=== PATIENT | female | born 1960 | race Caucasian/White ===

== ENCOUNTER 2020-08-30 | Outpatient (REF) | payer OTHER, SELFPAY | END 2020-08-30 00:01 | disposition home or self-care (01) | LOC: HO.LNP | PROVIDERS: Visit Provider Nurse Practitioner Family | DX: L03.032 Cellulitis of left toe (principal) | CPT/HCPCS: 87071; 87077; 87147; 87186; 87205 ==

== ENCOUNTER → 2020-11-16 07:56 | Outpatient (BNVA) | payer OTHER, SELFPAY | PROVIDERS: PCP Internal Medicine; Visit Provider Advanced Practice Midwife | DX: Z76.89 Persons encountering health services in other specified circumstances (principal) ==

== ENCOUNTER 2020-11-30 10:19 | Outpatient (REF) | payer OTHER, SELFPAY ==
--- NOTE | 2020-11-30 10:24 | US_ITS ---
EXAMINATION: US PELVIS CLINICAL INFORMATION: Postmenopausal bleeding COMPARISON: None TECHNIQUE: Transabdominal and transvaginal imaging of pelvis is performed. FINDINGS: On transabdominal ultrasound, the uterus is retroverted and retroflexed. It measures 6.3 cm in length, 3.2 cm in AP and 4.3 cm in transverse dimension. No focal lesion seen. The endometrial thickness is 0.8 cm. There is a small hypoechoic lesion in the cervix likely a small polyp measuring 0.8 x 0.6 x 0.7 cm. The ovaries are not seen. There is no free fluid in the cul-de-sac. US/US transvaginal IMPRESSION: 1. Small cervical polyp. 2. Unremarkable uterus. 3. Ovaries are not seen.
--- NOTE | 2020-11-30 10:24 | US_ITS ---
EXAMINATION: US PELVIS CLINICAL INFORMATION: Postmenopausal bleeding COMPARISON: None TECHNIQUE: Transabdominal and transvaginal imaging of pelvis is performed. FINDINGS: On transabdominal ultrasound, the uterus is retroverted and retroflexed. It measures 6.3 cm in length, 3.2 cm in AP and 4.3 cm in transverse dimension. No focal lesion seen. The endometrial thickness is 0.8 cm. There is a small hypoechoic lesion in the cervix likely a small polyp measuring 0.8 x 0.6 x 0.7 cm. The ovaries are not seen. There is no free fluid in the cul-de-sac. US/US pelvic complete IMPRESSION: 1. Small cervical polyp. 2. Unremarkable uterus. 3. Ovaries are not seen.
== END 2020-11-30 10:20 | disposition home or self-care (01) ==
LOC: HO.US 10:19
PROVIDERS: Visit Provider Advanced Practice Midwife
DX: N95.0 Postmenopausal bleeding (principal)
CPT/HCPCS: 76830; 76856

== ENCOUNTER 2020-12-07 08:31 | Outpatient (REF) | payer OTHER, SELFPAY | END 2020-12-07 08:32 | disposition home or self-care (01) | LOC: HO.LAB 08:31 | PROVIDERS: PCP Internal Medicine; Referring Provider Advanced Practice Midwife; Visit Provider Obstetrics & Gynecology | DX: N93.9 Abnormal uterine and vaginal bleeding, unspecified (principal) | CPT/HCPCS: 58100; 88305; 99212 ==

== ENCOUNTER → 2020-12-21 15:59 | Outpatient (BNVA) | payer OTHER, SELFPAY | PROVIDERS: PCP Internal Medicine; Visit Provider Obstetrics & Gynecology ==

== ENCOUNTER 2021-01-04 09:37 | Outpatient (REF) | payer OTHER, SELFPAY | END 2021-01-04 09:38 | disposition home or self-care (01) | LOC: HO.LAB 09:37 | PROVIDERS: PCP Internal Medicine; Visit Provider Obstetrics & Gynecology | DX: N93.9 Abnormal uterine and vaginal bleeding, unspecified (principal) | CPT/HCPCS: 58100; 88305 ==

== ENCOUNTER → 2021-01-18 10:44 | Outpatient (BNVA) | payer OTHER, SELFPAY | PROVIDERS: PCP Internal Medicine; Visit Provider Obstetrics & Gynecology ==

== ENCOUNTER 2021-01-25 11:32 | Outpatient (REF) | payer OTHER, SELFPAY ==
[2021-01-25 13:59] LABS: MANUAL DIFF FLAG NO
[2021-01-25 14:06] LABS: Basophils Percent Auto 0.5 % (0-2); Eosinophils Absolute Auto 0.1 X10*3/uL (0.0-0.4); Eosinophils Percent Auto 0.8 % (0-4); Hematocrit 42.8 % (37-47); Imm Gran Abs Auto 0.02 X10*3/uL (0.00-0.03); Imm Gran Pct Auto 0.3 % (0.0-0.4); Lymphocytes Absolute Auto 2.2 X10*3/uL (1.2-4.9); Lymphocytes Percent Auto 33.2 % (20-40); Mean Corpuscular HGB Conc 32.7 g/dl (31.0-35.0); Mean Corpuscular Hemoglobin 30.6 pg (27.0-33.0); Mean Corpuscular Volume 93.4 fL (80-98); Mean Platelet Volume 9.9 fL (9.4-12.3); Monocytes Absolute Auto 0.5 X10*3/uL (0.1-1.2); Monocytes Percent Auto 7.4 % (2-11); Neutrophils Absolute Auto 3.8 X10*3/uL (2.0-8.3); Neutrophils Percent Auto 57.8 % (45-73); Platelet Count 312 X10*3/uL (160-400); Red Blood Count 4.58 X10*6/uL (4.20-5.50); Red Cell Distribution Width 12.2 % (11.0-16.0); White Blood Count 6.5 X10*3/uL (4.8-10.8)
[2021-01-25 14:42] LABS: Alanine Aminotransferase 38 U/L (0-31); Alkaline Phosphatase 110 U/L (39-117); Amylase 83 U/L (28-100); Anion Gap 16 (12-20); Aspartate Amino Transferase 30 U/L (5-31); Bilirubin Total 0.8 mg/dL (0.0-1.0); Blood Urea Nitrogen 20 mg/dL (9-16); Calcium 9.8 mg/dL (8.4-10.2); Carbon Dioxide 28 mmol/L (22-29); Chloride 101 mmol/L (96-108); Estimated Glomerular Filt Rate > 60; Glucose Random 88 mg/dL (60-115); Lipase 32 U/L (8-78); Potassium 4.3 mmol/L (3.3-5.1); Sodium 141 mmol/L (135-145); Total Protein 7.8 g/dL (6.5-8.0)
== END 2021-01-25 11:33 | disposition home or self-care (01) ==
LOC: HO.HMGCLDS 11:32
PROVIDERS: PCP Internal Medicine; Visit Provider Nurse Practitioner Family
DX: R10.9 Unspecified abdominal pain (principal)
CPT/HCPCS: 36415; 80053; 82150; 83690; 85025

== ENCOUNTER 2021-01-30 14:56 | Outpatient (REF) | payer OTHER, SELFPAY ==
[2021-01-30 16:46] LABS: Glucose Urine UA NEG (NEG); Leukocyte Esterase Urine NEG (NEG); Nitrite Urine NEG (NEG); PH 5.5 (5.0-8.0); Specific Gravity - Urine >= 1.030 (1.005-1.025); Urine Blood 1+ (NEG); Urine Ketones NEG (NEG); Urine Protein NEG (NEG-TRACE)
[2021-01-30 16:49] LABS: Appearance Urine CLEAR; Color Urine YELLOW
[2021-01-30 16:56] LABS: Bacteria Urine TRACE /LPF; Mucus Urine TRACE /LPF; Squamous Epithelial Cell Urine 1+ /LPF; WBC Urine 0-2 /HPF (0-4)
== END 2021-01-30 14:57 | disposition home or self-care (01) ==
LOC: HO.HMGCLDS 14:56
PROVIDERS: Nurse Practitioner Family; PCP Internal Medicine; Visit Provider Internal Medicine
DX: R10.9 Unspecified abdominal pain (principal); Z20.822 Contact with and (suspected) exposure to COVID-19
CPT/HCPCS: 36415; 81001; U0003; U0005

== ENCOUNTER 2021-01-31 11:30 | Outpatient (RCR) | payer OTHER, SELFPAY ==
--- NOTE | 2021-01-10 14:10 | MHC.OT.OEV ---
[address] [phone] F: [phone] Occupational Therapy Evaluation Diagnosis: R MF trigger finger Date of Onset: 12/20/20 Date of Surgery: Attending Provider: Rosio Chandler Prescribed Treatment: Evaluate and treat History of Current Condition: Reports onset 3 weeks of cramping in R hand and locking of R MF, stiffness in AM/PM. Reports triggering of R MF 2x/day and uses L hand to release Significant Medical History: n/a Precautions/Contraindications: PAIN Patient Goals: Decrease pain with use Hand Dominance: Right Observations: carries bag with L hand QuickDASH Score: 18 Prior Level of Function and Occupation Self Care, Employment, Leisure: Does not work. Does drive, enjoys sewing. Ind in ADLs and IADLs Living Situation, Family and/or Social Support: Lives alone Current Level of Function and Occupation Self Care, Employment, Leisure: Uses L hand to compensate for deficits. Reports difficulties with opening jars and containers, recently purchased electric jar social media job titles for maximizing independence. Sleep: No problems Driving: No problems Pain Assessment Pain Score: 3-8/10 Pain Scale Used: Numeric (0 - 10) Pain Location and Description: R hand/R MF Aggravating Factors: Opening jars/containers, gripping Alleviating Factors: Takes pain medication; has not used heat/ice Skin and Soft Tissue Assessment Skin and Soft Tissue: Nail Changes Swelling Comments: Mild edema noted in R hand, particularly in IPs Sensory Assessment Temperature: Light Touch: Proprioception: Vibration: Comments: Denies numbness/tingling Edema Assessment Upper Extremity: Right Impaired Lower Extremity: Comments: R LF: MCP circumference: R 18.5 cm, L 18 cm PIP circumference: R 6 cm, L 5.6 cm DIP circumference: R 5 cm, L 4.7 cm Dexterity Assessment Dexterity: WFL Comments: WFL per patient report; will continue to formally assess with f/u sessions AROM(PROM) Strength Wrist Flexion: B/L 88 Extension: R 65, L 70 Ulnar Deviation: Radial Deviation: Comments: Flexion: Extension: Ulnar Deviation: Radial Deviation: Comments: Digits Index MCP: PIP: DIP: Long MCP: R 80, L 80 PIP: R 90, L 95 DIP: R 80, 82 Ring MCP: PIP: DIP: Small MCP: PIP: DIP: Comments: Gross Grasp: R 20, L 35 Lateral Pinch: R 11, L 7 Two-Point Pinch: R 5, L 5 Three-Jaw Aroldo: R 6, L 7 Comments: Mild pain noted with R three jaw aroldo Patient Education Primary Language: Danish Rack Puller Required: No Current Knowledge: Understands information with skills for self-management Teaching Method: Demonstration Handouts Education Needs Identified on Evaluation: ADL's Disease Information Equipment Use Exercise Pain How did patient/family demonstrate learning? Patient demonstrates Patient verbalizes Barriers to Learning: None Readiness for Learning: Accepting Who was educated? Patient Comments: Plan of Care Assessment: Tammi is a 60 year old female who is retired and lives alone. She is Ind with ADLs and IADLs and drives. She reports cramping of the R hand and locking of the R MF 2x/day over the last 3 weeks, with most stiffness in the AM/PM. She reports using her L hand to release the triggering (stage 5 SST). She reports compensating with her nondominant L hand to complete ADLs and IADLs to avoid R hand pain/ triggering. She would benefit from skilled OT 2x/week for 4 weeks to maximize function and independence. STG Duration: Short Term Goals: See below LTG Duration: 4 weeks Die Attaching Machine Tender Goals: Ind HEP Ind orthosis wear and use Ind with JPT and activity modification R gross grasp >35 lbs Quick Dash score <10% Reports pain <3 with IADLs Achieve stage 2 of SST scale for TF Frequency and Duration: The patient will be seen 2x/week for 4 weeks Treatment Plan: Therapeutic Exercise Therapeutic Activity Home Exercise Program Splinting Patient Education Edema Control ADL Training Ultrasound Paraffin Fluidotherapy MHP Cold Packs Joint Mobilization Soft Tissue Mobilization Kinesiotaping Other (see comments) Electronically Signed By: Sandhya Hugo OT/s Reviewed/agree with student documentation: Yes Therapist: Indigo Mcarthur, OTR/L Please sign and return to therapist, Thank you for your referral.
--- NOTE | 2021-01-31 14:10 | MHC.OT.DC ---
[address] [phone] F: [phone] Occupational Therapy Discharge Note Provider: Rosio Chandler Diagnosis: R MF trigger finger Date of Evaluation: 01/10/21 Date of Discharge: 01/31/21 Treatments to Date: 7 Discharge Status: Achieved Goals Improved Function Independent with HEP Discharge Summary: Pt reports minimal pain with ADLs and IADLs, with the most pain being in the morning. She reports minimal use of orthosis. Pt strength has improved as well as functional use of the R hand. Pt was educated on use of heat, joint protection and activity modification as well as avoiding heavy gripping tasks and forced D3 finger flexion. Pt is between stage 2-3 of SST scale, with most irritation with forced D3 finger flexion. Pt will be transitioned to a home based program, D/C OT services. Electronically Signed By: Sandhya Hugo OT/s Reviewed/agree with student documentation: Yes Therapist: Indigo Mcarthur, OTR/L Please Sign and return to therapist, thank you for your referral.
== END 2021-01-31 14:11 | disposition other institution (70) ==
LOC: HO.OT 11:30
PROVIDERS: Visit Provider Internal Medicine
DX: M65.331 Trigger finger, right middle finger (principal)
CPT/HCPCS: 97035; 97110; 97140; 97165; 97760

== ENCOUNTER → 2021-02-14 08:07 | Outpatient (BNVA) | payer OTHER, SELFPAY | PROVIDERS: PCP Internal Medicine; Visit Provider Obstetrics & Gynecology | DX: R10.84 Generalized abdominal pain (principal) | CPT/HCPCS: 99212 ==

== ENCOUNTER 2021-03-16 07:53 | Outpatient (REF) | payer OTHER, SELFPAY ==
--- NOTE | ~2021-03-16 | MM_ITS ---
EXAMINATION: MM SCREENING DIGITAL BREAST TOMOSYNTHESIS, BILATERAL CLINICAL INFORMATION: Screening. Asymptomatic. The lifetime risk of breast cancer based on the Tyrer-Cuzick Model is 8%. COMPARISON: Mammography: 01/25/2020, 01/19/2019, 01/13/2018 TECHNIQUE: Digital breast tomosynthesis is performed in both the craniocaudal and mediolateral oblique views along with computer-aided detection (CAD). Synthesized 2D images are generated from the tomosynthesis. Additional exaggerated right CC view is provided. FINDINGS: The breasts are heterogeneously dense, which may obscure small masses (ACR BI-RADS breast composition Category c). There are no significant masses, abnormal calcifications, or other abnormalities. Parenchymal pattern is similar to prior exams MM/MM tomosynthesis screening BI IMPRESSION: No significant changes from prior studies. ASSESSMENT: BI-RADS 1: Negative RECOMMENDATION: Routine annual mammography screening. This patient's information was entered into a reminder system with a target due date for their next mammogram.
== END 2021-03-16 07:54 | disposition home or self-care (01) ==
LOC: HO.MAMMO 07:53
PROVIDERS: Visit Provider Internal Medicine
DX: Z12.31 Encounter for screening mammogram for malignant neoplasm of breast (principal)
CPT/HCPCS: 77063; 77067

== ENCOUNTER 2021-04-07 10:25 | Outpatient (REF) | payer OTHER, SELFPAY ==
--- NOTE | ~2021-04-07 | MM_ITS ---
EXAMINATION: BONE DENSITOMETRY CLINICAL INDICATION: Asymptomatic menopausal state. COMPARISON: None (current study represents initial baseline exam). TECHNIQUE: Using a Flash Auto Detailing DXA System (software version: 13.1) manufactured by [employer], dual-energy x-ray absorptiometry was performed of the lumbar spine and left hip. The images are of good technical quality. Summary results are attached. FINDINGS: AP SPINE L1-L4: There is levocurvature and degenerative changes lumbar spine which may cause overestimation of the lumbar bone mineral density. BMD 1.022 g/cm2, Z-score 0.1, T-score -1.3, osteopenia. LEFT FEMUR, NECK: BMD 0.720 g/cm2, Z-score -0.9, T-score -2.3, osteopenia. LEFT FEMUR, TOTAL: BMD 0.765 g/cm2, Z-score -0.8, T-score -1.9, osteopenia. IDENTIFIED RISK FACTORS: Menopause. HISTORY OF FRACTURE: None listed. MEDICATIONS: None listed. MM/XR DEXA axial skeleton IMPRESSION: 1. DIAGNOSIS: Osteopenia based on the lowest T-score value of -2.3 in the femoral neck applying World Health Organization criteria. 2. 10-YEAR FRACTURE RISK PREDICTION, FRAX: Major osteoporotic fracture (clinical spine, forearm, hip or shoulder) 9.6%. Hip fracture 1.6%. 3. Treatment Recommendations: NOF guidelines recommend consideration for treatment in postmenopausal women and men age 50 and older presenting with the following: -A hip or vertebral (clinical or morphometric) fracture. -T-score less than or equal to -2.5 at the femoral neck or spine after appropriate evaluation to exclude secondary causes. -Low bone mass at the hip or spine and a 10-year fracture probability by FRAX of greater than or equal to 3% for hip fracture or greater than or equal to 20% for major osteoporotic fracture based on the [place] adapted WHO algorithm. 4. Other Recommendations: All treatment decisions require clinical judgment and consideration of individual patient factors, including patient preferences, comorbidities, previous drug use, risk factors not captured in the FRAX model (e.g. frailty, falls, vitamin D deficiency, increased bone turnover, interval significant decline in bone density) and possible under or overestimation of fracture risk by FRAX. Additional medical evaluation for secondary cause of low bone mineral density may be appropriate. FUTURE SCAN RECOMMENDATION: People with diagnosed cases of osteoporosis or at high risk for fracture should have regular bone mineral density tests. For patients eligible for Medicare, routine testing is allowed once every 2 years. The testing frequency can be increased to one year for patients who have rapidly progressing disease, those who are receiving or discontinuing medical therapy to restore bone mass, or have additional risk factors.
== END 2021-04-07 10:26 | disposition home or self-care (01) ==
LOC: HO.MAMMO 10:25
PROVIDERS: PCP Internal Medicine; Visit Provider Internal Medicine
DX: Z13.820 Encounter for screening for osteoporosis (principal); M85.80 Other specified disorders of bone density and structure, unspecified site; Z78.0 Asymptomatic menopausal state
CPT/HCPCS: 77080

== ENCOUNTER → 2021-04-18 08:22 | Outpatient (BNVA) | payer OTHER, SELFPAY | PROVIDERS: PCP Internal Medicine; Visit Provider Internal Medicine Gastroenterology | DX: R13.10 Dysphagia, unspecified (principal); R19.4 Change in bowel habit | CPT/HCPCS: 99212 ==

== ENCOUNTER 2021-05-18 10:52 | Day surgery (SDC) | payer OTHER, SELFPAY ==
[2021-05-12 14:41] VITALS: BMI 20.1
[2021-05-18 11:08] VITALS: BP 123/64; PULSE 77; RESP 16; TEMP 37.6; O2SAT 99
--- NOTE | 2021-05-18 11:23 | HO.ANESPROP2 ---
[facility] Active Problems Active Problems: All Active Problems (Updated 05/12/21 @ 14:38 by Dinora Fung) Paronychia (Acute) Paronychia due to ingrown nail (Acute) Paronychia of great toe of right foot (Acute) Paronychia of great toe of left foot (Acute) Ingrown toenail of left foot (Acute) Well woman exam with routine gynecological exam (Acute) Postmenopausal vaginal bleeding (Acute) Encounter for general adult medical examination with abnormal findings (Acute) Trigger middle finger of right hand (Acute) Vitamin D deficiency (Acute) Abdominal pain (Acute) Menopause (Acute) Hard stool (Acute) Chronic GERD (Acute) Acid reflux (Acute) Altered bowel habits (Acute) Dysphagia (Acute) Toe infection (Acute) Past Medical History Medical History Arthritis of right wrist GERD (gastroesophageal reflux disease) History of iron deficiency anemia Hx of migraines Scoliosis Toe infection Family History Family History Father Diabetes mellitus Stomach cancer Mother HTN (hypertension) Afib Heart failure Maternal Grandfather CVD (cardiovascular disease) Maternal Grandmother Leukemia Paternal Grandfather Cancer Paternal Grandmother No problems noted. Brother No problems noted. Brother No problems noted. Brother No problems noted. Brother No problems noted. Brother No problems noted. Sister No problems noted. Sister No problems noted. Sister No problems noted. Surgical History Surgical History History of tonsillectomy Hx of colonoscopy Social History Social History Household Members: None Alcohol intake: never Patient Tobacco Use Status: Never used Tobacco Use of substances other than those prescribed or required for medical reasons: No Advance Directives: No Advance Directives Information Provided: Yes Current occupational status: unemployed Sexual orientation: Straight/Heterosexual Gender identity: female Meds Allergies Allergy/AdvReac Type Severity Reaction Status Date / Time No Known Allergies Allergy Verified 05/18/21 11:03 [No Known Allergies*] Home Medications Medication Instructions Recorded Confirmed Last Taken Type sulfacetamide sodium 10 % eye drops 1 drp OPHTHALMIC (EYE) QID 08/30/20 05/12/21 Unknown History acetaminophen 500 mg PO Q6H PRN 05/18/21 05/18/21 Unknown History Exam Exam Date and Time: May 18, 2021 1123 Height,Weight and Vital Signs: Height 5 ft 6 in Weight 125 lb Last Vital Signs Temp 99.6 F 05/18/21 11:08 Pulse 77 05/18/21 11:08 Resp 16 05/18/21 11:08 BP 123/64 05/18/21 11:08 Pulse Ox 99 05/18/21 11:08 Airway Mallampati Class: II TM Dist: >3cm Loose/Missing/Broken Teeth: No Heart: RRR Lungs: NL Assessment and Plan Assessment Anesthesia Assessment: Anesthesia Plan Discussed and Chart Reviewed Final Anesthetic Review NPO: Yes ASA Class: II Final Preanesthetic Review: No Changes in Pt Med Stat, Meds/Allgs Chart Reviewed, Consent Obtained/Reviewed and Anes Risks/Benef Reviewed Patient Risk: Low Procedure Risk: Low Anesthetic Plan Anesthetic Plan: MAC: Disposition: Standard PACU
[2021-05-18] MEDS: Lactated Ringers 1,000 ML 50 ML IVCONT (11:35)
--- NOTE | 2021-05-18 11:37 | MHC.SHP ---
Pre-Procedural Eval Section A Date of Service: 05/18/21 Section B Chief Complaint: altered bowel habits, Dysphagia Relevant Family History (Specify if Yes): No Relevant Social History: None Present Medications: see Short Stay Collaborative assessment Medical History: Significant History (Arthritis of right wrist GERD (gastroesophageal reflux disease) History of iron deficiency anemia Hx of migraines Scoliosis Toe infection) History of Previous Operations: Relevant previous surgery/procedure and date(s) (History of tonsillectomy Hx of colonoscopy) Allergies: Allergies Allergy/AdvReac Type Severity Reaction Status Date / Time No Known Allergies Allergy Verified 05/18/21 11:03 [No Known Allergies*] Review of Systems Sugical H&P ROS: Negative: Constitution, Cardiovascular, Respiratory, Neurological, Psychiatric, Hem-Onc, Allergic/Immunologic, Gastrointestinal, Genitourinary, Musculoskeletal, Integumentary, Endocrine and Eyes/Ears/Nose/Throat Exam Surgical H&P Exam: Normal: HEENT, Normal: Heart, Normal: Lungs, Normal: Extremities, Normal: Abdomen, Normal: Skin and Normal: Neurological Plan Diagnosis/Plan: Unchanged I have reviewed the history and physical and performed a pertinent physical examination on my patient. No changes have occurred unless specified.
--- NOTE | 2021-05-18 11:53 | P.BOP_ITS ---
Brief Operative Note Date of Service: 05/18/21 Pre-op diagnosis: altered bowle habit, dysphagia Post-op diagnosis: same Procedure: see op note Surgeon: Marilyn Mathias MD Anesthesia: MAC Was an Medical Laboratory Technician used for this Procedure?: No Estimated blood loss (mL): 0 Condition: stable Disposition: PACU
--- NOTE | 2021-05-18 11:53 | P.OP_ITS ---
Operative Note Operative Note Date of Service: 05/18/21 Narrative: Operative Information Procedure Description: EGD, Colonoscopy FLEXIBLE TRANSORAL UPPER GASTROINTESTINAL ENDOSCOPY AND COLONOSCOPY PROCEDURE NOTE UPPER ENDOSCOPY Consent: Indications for the procedure and potential complications of bleeding, perforation, reaction to medications and missed diagnosis were discussed with the patient and informed consent was obtained. Instrument: Olympus GIF H 190 J mid size upper endoscope Monitoring: Vital signs and clinical assessment, continuous EKG monitoring, Pulse oximetry, Carbon Dioxide monitoring and blood pressure monitoring were done throughout the procedure. Procedure: The patient was placed in the left lateral decubitis position and pre-procedure medications were administered and a bite block was placed. The endoscope was inserted into the mouth and advanced under direct vision to the third part of duodenum. A careful inspection was made as the upper endoscope was withdrawn including a retroflexed examination of the proximal stomach; Findings and interventions are described below. Findings: Larynx:normal Esophagus: GE junction at 40 cm, diaphragm hiatus at 40 cm, normal mucosa, bx taken from GEJ and random esophagus, balloon dilation of LES to 20 mm and UES to 19 mm, no tears seen. Stomach: Mild erythema. Biopsies were obtained. Grade 2 flap valve on retroflexed examination of the cardia. Duodenum: Normal bulb and descending duodenum, bx taken Intervention: Biopsies as noted above, balloon dilation COLONOSCOPY Instrument: Olympus variable stiffness pediatric scope 190L Colonoscopy Monitoring: Vital signs and clinical assessment, continuous EKG monitoring, Pulse oximetry, Carbon Dioxide monitoring and blood pressure monitoring were done throughout the procedure. Colon withdrawal time was 11 minutes. Procedure: The patient was placed in the left lateral decubitis position and pre-procedure medications were administered. After a digital rectal examination of the ano-rectum, the video colonoscope was inserted into the rectum and advanced through the colon to the cecum/TI. The colonoscope was slowly withdrawn in a retrograde panoramic fashion and the colon mucosa was carefully examined including a retroflexed view of the rectum. Findings and interventions are described below. Procedure Difficulty:moderate due to looping, pressure applied to RUQ Findings: Terminal Ileum-normal, bx taken random colon bx taken Cecum:normal Ascending Colon: normal Transverse Colon -normal Descending Colon:normal Sigmoid Colon: moderate severe diverticulosis with mucosal hypertrophy noted Rectum: Retroflexion with moderate sized inflammed internal hemorrhoids, grade II Anorectum - normal Colon preparation: [place] Bowel Preparation Scale Right colon; 2 Transverse colon: 2 Left colon; 2 (0 = Unprepared colon segment with mucosa not seen due to solid stool that cannot be cleared. 1 = Portion of mucosa of the colon segment seen, but other areas of the colon segment not well seen due to staining, residual stool and/or opaque liquid. 2 = Minor amount of residual staining, small fragments of stool and/or opaque liquid, but mucosa of colon segment seen well. 3 = Entire mucosa of colon segment seen well with no residual staining, small fragments of stool or opaque liquid) Impression and Post Procedure Diagnosis: Endoscopy Findings: gastritis Colonoscopy Findings: internal hemorrhoids diverticular disease Plan: Await Pathology results Repeat Colonoscopy in 10 years or earlier if clinically indicated High fiber diet leaflet avoid straining at stool, epsom salts and sitz bath, anusol supps or cream Above findings were reviewed with the patient and relevant handouts were provided if indicated.
[2021-05-18 12:41] VITALS: BP 102/63; PULSE 67; RESP 16; TEMP 36.4; O2SAT 99
[2021-05-18 12:56] VITALS: BP 114/71; PULSE 81; RESP 17; O2SAT 100
== END 2021-05-18 13:36 | disposition home or self-care (01) ==
PROVIDERS: PCP Internal Medicine; Visit Provider Internal Medicine Gastroenterology
PROC: (CPT 45380; principal; 2021-05-18 12:30)
DX: R19.4 Change in bowel habit (principal); R15.2 Fecal urgency; R19.8 Other specified symptoms and signs involving the digestive system and abdomen; K57.30 Diverticulosis of large intestine without perforation or abscess without bleeding; K64.1 Second degree hemorrhoids; R13.10 Dysphagia, unspecified; K21.9 Gastro-esophageal reflux disease without esophagitis; K29.50 Unspecified chronic gastritis without bleeding; K44.9 Diaphragmatic hernia without obstruction or gangrene
CPT/HCPCS: 45380; 43249; 43239; 88305; 88342; C1726

== ENCOUNTER → 2021-06-13 11:28 | Outpatient (BNVA) | payer OTHER, SELFPAY | PROVIDERS: PCP Internal Medicine; Visit Provider Internal Medicine Gastroenterology ==

== ENCOUNTER 2022-02-07 08:28 | Outpatient (REF) | payer OTHER, SELFPAY ==
[2022-02-10 09:37] LABS: HPV mRNA E6/E7 rflx Not Detected (Not Detected)
== END 2022-02-07 08:29 | disposition home or self-care (01) ==
LOC: HO.LAB 08:28
PROVIDERS: PCP Internal Medicine; Visit Provider Advanced Practice Midwife
DX: Z01.411 Encounter for gynecological examination (general) (routine) with abnormal findings (principal); Z11.51 Encounter for screening for human papillomavirus (HPV); R10.2 Pelvic and perineal pain
CPT/HCPCS: 87624; 88142

== ENCOUNTER 2022-03-02 09:38 | Outpatient (REF) | payer OTHER, SELFPAY ==
--- NOTE | ~2022-03-02 | US_ITS ---
EXAMINATION: US PELVIS CLINICAL INFORMATION: Pelvic pain. COMPARISON: 11/30/2020 and 01/14/2018 TECHNIQUE: Ultrasound of the pelvis is performed using both transabdominal and transvaginal transducers along with Doppler. Transvaginal imaging is performed due to inadequate visualization transabdominally. FINDINGS: The study is limited due to peristalsing bowel and uterine positioning. Uterus: The uterus is retroverted and retroflexed and measures 6.2 x 3.3 x 3.5 cm. The double wall endometrial thickness is 0.6 mm. Within the cervix, there is an approximately 1.0 x 0.5 x 0.9 cm minimally hypoechoic structure with the appearance of a cervical polyp. The uterus is smooth in contour and has normal myometrial echogenicity. No visible fibroid. Adnexa: The left ovary is visualized. The right ovary is not visualized. There is normal Doppler flow present within the left ovary. There is no pelvic ascites or fluid collection. Right ovary is not identified. Left ovary measures 2.0 x 1.6 x 1.6 cm. Volume of 2.7 mL with no abnormal ovarian findings appreciated. US/US pelvic and transvaginal IMPRESSION: Cervical polyp, as described, with similar appearance as prior examination.
== END 2022-03-02 09:39 | disposition home or self-care (01) ==
LOC: HO.HMGCX 09:38
PROVIDERS: PCP Internal Medicine; Visit Provider Advanced Practice Midwife
DX: R10.2 Pelvic and perineal pain (principal)
CPT/HCPCS: 76830; 76856

== ENCOUNTER → 2022-03-08 16:07 | Outpatient (BNVA) | payer OTHER, SELFPAY | PROVIDERS: PCP Internal Medicine; Visit Provider Advanced Practice Midwife | DX: Z13.89 Encounter for screening for other disorder (principal) ==

== ENCOUNTER → 2022-04-03 07:39 | Outpatient (BNVA) | payer OTHER, SELFPAY | PROVIDERS: PCP Internal Medicine; Visit Provider Obstetrics & Gynecology | DX: N95.0 Postmenopausal bleeding (principal) | CPT/HCPCS: 99212 ==

== ENCOUNTER 2022-04-13 07:20 | Day surgery (SDC) | payer OTHER, SELFPAY ==
--- NOTE | 2022-04-12 08:24 | HO.ANESPROP2 ---
Documented by User: Marcy Leach NP 04/12/22 08:25 HPI - Anesthesia Eval Consult details Narrative: 62yo F for D&C Hysteroscopy,Possible polypectomy/myomectomy PMFSH Active Problems Active Problems: All Active Problems (Updated 04/06/22 @ 14:06 by Dinora Fung RN) Paronychia (Acute) Paronychia due to ingrown nail (Acute) Paronychia of great toe of right foot (Acute) Paronychia of great toe of left foot (Acute) Ingrown toenail of left foot (Acute) Well woman exam with routine gynecological exam (Acute) Postmenopausal vaginal bleeding (Acute) Encounter for general adult medical examination with abnormal findings (Acute) Trigger middle finger of right hand (Acute) Vitamin D deficiency (Acute) Abdominal pain (Acute) Menopause (Acute) Hard stool (Acute) Chronic GERD (Acute) Acid reflux (Acute) Altered bowel habits (Acute) Dysphagia (Acute) Nausea (Acute) Dermatitis (Acute) Dysphagia (Acute) Pain in right wrist (Acute) Gastric inflammation (Acute) Underweight due to inadequate caloric intake (Acute) Abdominal cramping (Acute) Myalgia (Acute) Headache (Acute) Nasal congestion (Acute) COVID-19 virus infection (Acute) Encounter to discuss test results (Acute) Postmenopausal bleeding (Acute) Endocervical polyp (Acute) Toe infection (Acute) Past Medical History Medical History Arthritis of right wrist Endocervical polyp GERD (gastroesophageal reflux disease) History of COVID-19 History of iron deficiency anemia Hx of migraines Scoliosis Toe infection Family History Family History Father Diabetes mellitus Stomach cancer Mother HTN (hypertension) Afib Heart failure Maternal Grandfather CVD (cardiovascular disease) Maternal Grandmother Leukemia Paternal Grandfather Cancer Paternal Grandmother No problems noted. Brother No problems noted. Brother No problems noted. Brother No problems noted. Brother No problems noted. Brother No problems noted. Sister No problems noted. Sister No problems noted. Sister No problems noted. Surgical History Surgical History History of tonsillectomy Hx of colonoscopy Hx of esophagogastroduodenoscopy Social History Social History Household Members: None Housing: Condominium Alcohol intake: never Patient Tobacco Use Status: Never used Tobacco Use of substances other than those prescribed or required for medical reasons: No Are you DNR?: No Advance Directives: No Advance Directives Information Provided: Yes Current occupational status: unemployed Sexual orientation: Straight/Heterosexual Gender identity: Female Meds Allergies Allergy/AdvReac Type Severity Reaction Status Date / Time No Known Allergies Allergy Verified 04/06/22 14:00 [No Known Allergies*] Home Medications Medication Instructions Recorded Confirmed Last Taken Type acetaminophen 500 mg tablet 500 mg PO Q6H PRN 05/18/21 04/06/22 Unknown History Exam Exam Date and Time: April 12, 2022823 Assessment and Plan Assessment Anesthesia Assessment: Chart Reviewed Documented by User: Praveena Posey MD 04/13/22 09:04 PMFSH Active Problems Active Problems: All Active Problems (Updated 04/06/22 @ 14:06 by Dinora Fung RN) Paronychia due to ingrown nail (Acute) Paronychia of great toe of right foot (Acute) Paronychia of great toe of left foot (Acute) Well woman exam with routine gynecological exam (Acute) Postmenopausal vaginal bleeding (Acute) Encounter for general adult medical examination with abnormal findings (Acute) Trigger middle finger of right hand (Acute) Vitamin D deficiency (Acute) Abdominal pain (Acute) Menopause (Acute) Hard stool (Acute) Chronic GERD (Acute) Altered bowel habits (Acute) Dysphagia (Acute) Nausea (Acute) Dermatitis (Acute) Pain in right wrist (Acute) Gastric inflammation (Acute) Underweight due to inadequate caloric intake (Acute) Abdominal cramping (Acute) Myalgia (Acute) Headache (Acute) Nasal congestion (Acute) COVID-19 virus infection (Acute) Endocervical polyp (Acute) Toe infection (Acute) Past Medical History Medical History Arthritis of right wrist Endocervical polyp GERD (gastroesophageal reflux disease) History of COVID-19 History of iron deficiency anemia Hx of migraines Scoliosis Toe infection Family History Family History Father Diabetes mellitus Stomach cancer Mother HTN (hypertension) Afib Heart failure Maternal Grandfather CVD (cardiovascular disease) Maternal Grandmother Leukemia Paternal Grandfather Cancer Paternal Grandmother No problems noted. Brother No problems noted. Brother No problems noted. Brother No problems noted. Brother No problems noted. Brother No problems noted. Sister No problems noted. Sister No problems noted. Sister No problems noted. Family history of problems with anesthesia: No Surgical History Surgical History History of tonsillectomy Hx of colonoscopy Hx of esophagogastroduodenoscopy History of Problems with Anesthesia: No Social History Social History Household Members: None Housing: Condominium Alcohol intake: never Patient Tobacco Use Status: Never used Tobacco Use of substances other than those prescribed or required for medical reasons: No Are you DNR?: No Advance Directives: No Advance Directives Information Provided: Yes Current occupational status: unemployed Sexual orientation: Straight/Heterosexual Gender identity: Female Meds Allergies Allergy/AdvReac Type Severity Reaction Status Date / Time No Known Allergies Allergy Verified 04/06/22 14:00 [No Known Allergies*] Home Medications Medication Instructions Recorded Confirmed Last Taken Type acetaminophen 500 mg tablet 500 mg PO Q6H PRN 05/18/21 04/06/22 Unknown History Exam Height,Weight and Vital Signs: Height 5 ft 6 in Weight 54.431 kg Vital Signs Temp Pulse Resp BP Pulse Ox 04/13/22 07:54 97.1 F 70 18 132/75 99 Airway Mallampati Class: II TM Dist: >3cm (Receding chin) Neck ROM: Full Loose/Missing/Broken Teeth: No Heart: RRR Lungs: CTAB Assessment and Plan Assessment Anesthesia Assessment: Anesthesia Plan Discussed Final Anesthetic Review Family History of Problems with Anesthesia: No History of Problems with Anesthesia: No NPO: Yes ASA Class: II Final Preanesthetic Review: No Changes in Pt Med Stat, Meds/Allgs Chart Reviewed, Consent Obtained/Reviewed and Anes Risks/Benef Reviewed Patient Risk: Low Procedure Risk: Low Assessment/Block/Sedation in SS: Assess/Block/Sedation-SS Anesthetic Plan Anesthetic Plan: GA Disposition: Standard PACU
[2022-04-13] VITALS (8 sets, daily range): BP systolic 86–132; BP diastolic 56–75; PULSE 55–74; RESP 10–18; TEMP 36.2–36.6; O2SAT 95–100; BMI 19.3
--- NOTE | 2022-04-13 | ECG_ITS ---
Test Reason : p abnomality Blood Pressure : / mmHG Vent. Rate : 072 BPM Atrial Rate : 072 BPM P-R Int : 122 ms QRS Dur : 072 ms QT Int : 396 ms P-R-T Axes : 003 -50 038 degrees QTc Int : 433 ms Normal sinus rhythm Left axis deviation Low voltage QRS Cannot rule out Anterior infarct , age undetermined Abnormal ECG When compared with ECG of 09-JAN-2019 18:07, No significant change was found Referred By: rPaveena Posey Electronically Signed By:
[2022-04-13] MEDS: Lactated Ringers 1,000 ML 50 ML IVCONT (08:06)
--- NOTE | 2022-04-13 08:51 | MHC.SHP ---
Pre-Procedural Eval Section A Date of Service: 04/13/22 The patient is an INPATIENT: No Changes since office visit: No Cold of Flu in the past 2 weeks, No New Medical Problems, No Changes in Medication and No Patient answered all questions The History & Physical has been completed within 30 days and I have reviewed it.: Yes Section B Chief Complaint: bleeding Allergies: Allergies Allergy/AdvReac Type Severity Reaction Status Date / Time No Known Allergies Allergy Verified 04/06/22 14:00 [No Known Allergies*] Plan Diagnosis/Plan: Unchanged I have reviewed the history and physical and performed a pertinent physical examination on my patient. No changes have occurred unless specified.
--- NOTE | 2022-04-13 09:44 | PM.OP ---
Brief Operative Note Date of Service: 04/13/22 Pre-op diagnosis: Postmenopausal bleeding, endocervical polyp Post-op diagnosis: same Procedure: Hysteroscopy D&C, Polypectomy Surgeon: Baljit Sawyer MD Anesthesia: MAC Was an Substance Abuse Technician used for this Procedure?: No Estimated blood loss (mL): 0 Pathology: other (Endometrial Scrapping. Polyp) Condition: stable Disposition: PACU
--- NOTE | 2022-04-13 09:46 | W.PM.OPN ---
Operative Note Operative Note Date of Service: 04/13/22 Narrative: Preop Diagnosis: Postmenopausal bleeding, Endo cervical polyp by US Operation: Diagnostic Hysteroscopy, Dilataion & Curettage and polypectomy Post Op Diagnosis: Endocervical l Polyp QBL: Minimal Anesthesia: MAC Surgeon: Baljit Sawyer MD Heel Cover Softener: None Complication: None Pathology: Endometrial Scrapings, Endocervical polyp Procedure: The patient was put in the dorsal lithotomy position, scrubbed, and draped in the usual manner. A sterile speculum was inserted in the patient's vagina. The anterior lip of the cervix was grasped with a single tooth tenaculum. The cervix was dilated up to 5 mm, then the scope was inserted in the patient's uterus. Inspection revealed endo cervical polyp. The Myosure Reach device was used; it was introduced through the operative channel and polypectomy done with no complications. Next, Sharp curettings was carried on with minimal amount of tissues retrieved. At the end of the procedure, all instruments were taken out of the patient uterine and vaginal cavity. The single tooth tenaculum was removed and homeostasis was assured using pressure,. The patient tolerated the procedure well and was transferred to the PACU in a stable condition.
[2022-04-13] MEDS: Acetaminophen 325 MG TABLET 650 MG PO (10:31)
[2022-04-13] MEDS: oxyCODONE HCl Immed Release 5 MG TABLET PO (10:32)
== END 2022-04-13 10:53 | disposition home or self-care (01) ==
PROVIDERS: PCP Internal Medicine; Visit Provider Obstetrics & Gynecology
PROC: 0UDB8ZZ Extraction of Endometrium, Via Natural or Artificial Opening Endoscopic (ICD-10-PCS; CPT 58558; principal; 2022-04-13 09:30)
DX: N95.0 Postmenopausal bleeding (principal); N84.1 Polyp of cervix uteri; N85.4 Malposition of uterus; D50.9 Iron deficiency anemia, unspecified; G43.909 Migraine, unspecified, not intractable, without status migrainosus; M41.9 Scoliosis, unspecified
CPT/HCPCS: 58558; 88305; 93005; J1100; J2250; J2405; J3010

== ENCOUNTER → 2022-04-26 11:56 | Outpatient (BNVA) | payer OTHER, SELFPAY | PROVIDERS: Visit Provider Obstetrics & Gynecology | DX: N95.0 Postmenopausal bleeding (principal); N84.0 Polyp of corpus uteri; Z98.890 Other specified postprocedural states | CPT/HCPCS: 99212 ==

== ENCOUNTER 2022-12-17 13:19 | Outpatient (REF) | payer OTHER, SELFPAY ==
--- NOTE | ~2022-12-17 | MM_ITS ---
EXAMINATION: MM SCREENING DIGITAL BREAST TOMOSYNTHESIS, BILATERAL CLINICAL INFORMATION: Screening. Asymptomatic. The lifetime risk of breast cancer based on the Tyrer-Cuzick Model is 8%. COMPARISON: Mammography: 03/16/2021, 01/25/2020, 01/19/2019 TECHNIQUE: Digital breast tomosynthesis is performed in both the craniocaudal and mediolateral oblique views along with computer-aided detection (CAD). Synthesized 2D images are generated from the tomosynthesis. Additional right CC view is provided. FINDINGS: The breasts are heterogeneously dense, which may obscure small masses (ACR BI-RADS breast composition Category c). Breast tissue composition borders on extremely dense. No architectural abnormality or developing density or significant change from prior studies. There are no significant masses, abnormal calcifications, or other abnormalities. MM/MM tomosynthesis screening BI IMPRESSION: No mammographic evidence of malignancy. ASSESSMENT: BI-RADS 1: Negative RECOMMENDATION: Routine annual mammography screening. This patient's information was entered into a reminder system with a target due date for their next mammogram.
== END 2022-12-17 13:20 | disposition home or self-care (01) ==
LOC: HO.MAMMO 13:19
PROVIDERS: Visit Provider Internal Medicine
DX: Z12.31 Encounter for screening mammogram for malignant neoplasm of breast (principal)
CPT/HCPCS: 77063; 77067

== ENCOUNTER 2022-12-26 07:17 | Outpatient (REF) | payer OTHER, SELFPAY ==
[2022-12-26 11:20] LABS: MANUAL DIFF FLAG NO
[2022-12-26 11:32] LABS: Basophils Percent Auto 0.6 % (0-2); Eosinophils Percent Auto 0.8 % (0-4); Hematocrit 40.1 % (37.0-47.0); Hemoglobin 13.2 g/dl (12.0-16.0); Imm Gran Abs Auto 0.01 X10*3/uL (0.00-0.03); Imm Gran Pct Auto 0.2 % (0.0-0.4); Lymphocytes Absolute Auto 1.8 X10*3/uL (1.2-4.9); Lymphocytes Percent Auto 37.7 % (20-40); Mean Corpuscular HGB Conc 32.9 g/dl (31.0-35.0); Mean Corpuscular Hemoglobin 30.6 pg (27.0-33.0); Mean Corpuscular Volume 92.8 fL (80.0-98.0); Mean Platelet Volume 10.6 fL (9.4-12.3); Monocytes Absolute Auto 0.4 X10*3/uL (0.1-1.2); Neutrophils Absolute Auto 2.6 x10*3/uL (2.0-8.3); Neutrophils Percent Auto 52.7 % (45-73); Platelet Count 283 X10*3/uL (160-400); Red Blood Count 4.32 X10*6/uL (4.20-5.50); Red Cell Distribution Width 11.9 % (11.0-16.0); White Blood Count 4.9 X10*3/uL (4.8-10.8)
[2022-12-26 12:21] LABS: Alanine Aminotransferase 15 U/L (0-31); Albumin Level 4.6 g/dL (3.5-5.0); Alkaline Phosphatase 96 U/L (39-117); Anion Gap 16 (12-20); Aspartate Amino Transferase 18 U/L (5-31); Bilirubin Total 0.8 mg/dL (0.0-1.0); Blood Urea Nitrogen 15 mg/dL (9-16); Calcium 9.6 mg/dL (8.4-10.2); Carbon Dioxide 25 mmol/L (22-29); Chloride 104 mmol/L (96-108); Cholesterol 203 mg/dL; Estimated Glomerular Filt Rate > 60; Glucose Fasting 89 mg/dL (60-99); HDL Cholesterol 70 mg/dL; LDL Cholesterol Calculated 107 mg/dl; Potassium 4.2 mmol/L (3.3-5.1); Sodium 141 mmol/L (135-145); Triglycerides 131 mg/dL
== END 2022-12-26 07:18 | disposition home or self-care (01) ==
LOC: HO.HMGCLDS 07:17
PROVIDERS: Visit Provider Internal Medicine
DX: Z00.01 Encounter for general adult medical examination with abnormal findings (principal); K21.9 Gastro-esophageal reflux disease without esophagitis
CPT/HCPCS: 36415; 80053; 80061; 84443; 85025

== ENCOUNTER → 2023-03-22 08:13 | Outpatient (BNVA) | payer OTHER, SELFPAY | PROVIDERS: PCP Internal Medicine; Visit Provider Internal Medicine Gastroenterology | DX: K62.5 Hemorrhage of anus and rectum (principal) | CPT/HCPCS: 99212 ==

== ENCOUNTER 2023-05-08 08:47 | Day surgery (SDC) | payer OTHER, SELFPAY ==
[2023-05-03 14:05] VITALS: BMI 18.9
--- NOTE | 2023-05-07 11:40 | P.CONAN_ITS ---
Documented by User: Marcy Leach NP 05/07/23 11:41 HPI - Anesthesia Eval Consult details Narrative: 63yo F for Upper Endoscopy and Colonoscopy [facility] Active Problems Active Problems: All Active Problems (Updated 02/19/23 @ 11:43 by Rosio Chandler MD) Irritation of right eye (Acute) Bleeding per rectum (Acute) Blurring of vision (Acute) Rash (Acute) Paronychia (Acute) Paronychia due to ingrown nail (Acute) Paronychia of great toe of right foot (Acute) Paronychia of great toe of left foot (Acute) Ingrown toenail of left foot (Acute) Well woman exam with routine gynecological exam (Acute) Postmenopausal vaginal bleeding (Acute) Encounter for general adult medical examination with abnormal findings (Acute) Trigger middle finger of right hand (Acute) Vitamin D deficiency (Acute) Abdominal pain (Acute) Menopause (Acute) Hard stool (Acute) Chronic GERD (Acute) Acid reflux (Acute) Altered bowel habits (Acute) Dysphagia (Acute) Nausea (Acute) Dermatitis (Acute) Dysphagia (Acute) Pain in right wrist (Acute) Gastric inflammation (Acute) Underweight due to inadequate caloric intake (Acute) Abdominal cramping (Acute) Myalgia (Acute) Headache (Acute) Nasal congestion (Acute) COVID-19 virus infection (Acute) Encounter to discuss test results (Acute) Postmenopausal bleeding (Acute) Endocervical polyp (Acute) Toe infection (Acute) Past Medical History Medical History Arthritis of right wrist Endocervical polyp GERD (gastroesophageal reflux disease) History of COVID-19 History of iron deficiency anemia Hx of migraines Scoliosis Toe infection Family History Family History Father Diabetes mellitus Stomach cancer Mother HTN (hypertension) Afib Heart failure Maternal Grandfather CVD (cardiovascular disease) Maternal Grandmother Leukemia Paternal Grandfather Cancer Paternal Grandmother No problems noted. Brother No problems noted. Brother No problems noted. Brother No problems noted. Brother No problems noted. Brother No problems noted. Sister No problems noted. Sister No problems noted. Sister No problems noted. Family history of problems with anesthesia: No Surgical History Surgical History History of tonsillectomy Hx of colonoscopy Hx of esophagogastroduodenoscopy History of Problems with Anesthesia: No Social History Social History Household Members: None Housing: Condominium Alcohol intake: never Patient Tobacco Use Status: Never used Tobacco e-Cigarette/Vaping Use: Never Used Use of substances other than those prescribed or required for medical reasons: No Are you DNR?: No Advance Directives: No Advance Directives Information Provided: Yes Current occupational status: unemployed Sexual orientation: Straight/Heterosexual Gender identity: Female Cognitive needs: No Hearing needs: No Vision needs: No Meds Allergies Allergy/AdvReac Type Severity Reaction Status Date / Time No Known Allergies Allergy Verified 03/22/23 08:42 [No Known Allergies*] Home Medications Medication Instructions Recorded Confirmed Last Taken Type acetaminophen 500 mg tablet 500 mg PO Q6H PRN Pain, Moderate 05/18/21 02/19/23 Unknown History carboxymethylcellulose sodium 1 % 1 drp ophthalmic (eye) BID 02/19/23 02/19/23 Unknown History eye liquid gel drops (Refresh Liquigel) ciprofloxacin HCl 0.3 % eye drops 1 drp ophthalmic (eye) Q4H 03/22/23 Unknown History Exam Exam Date and Time: May 07, 2023 1140 Height,Weight and Vital Signs: Height 5 ft 6 in Weight 53.07 kg Pertinent Lab Results Pertinent Lab Results: Laboratory Tests 12/26/22 12/26/22 07:22 07:22 WBC 4.9 Hgb 13.2 Hct 40.1 Plt Count 283 Sodium 141 Potassium 4.2 Chloride 104 Carbon Dioxide 25 BUN 15 Creatinine 0.76 Narrative Narrative: EKG 2021 Vent. Rate : 072 BPM ? ? Atrial Rate : 072 BPM ?? P-R Int : 122 ms? QRS Dur : 072 ms ? ? QT Int : 396 ms ? ? ? P-R-T Axes : 003 -50 038 degrees ?? QTc Int : 433 ms ? Normal sinus rhythm Left axis deviation Low voltage QRS Cannot rule out Anterior infarct , age undetermined Abnormal ECG When compared with ECG of 09-JAN-2019 18:07, No significant change was found ? Assessment and Plan Assessment Anesthesia Assessment: Chart Reviewed Final Anesthetic Review Family History of Problems with Anesthesia: No History of Problems with Anesthesia: No Documented by User: Kathy Marks MD 05/08/23 09:17 [facility] Past Medical History Medical History Arthritis of right wrist Endocervical polyp GERD (gastroesophageal reflux disease) History of COVID-19 History of iron deficiency anemia Hx of migraines Scoliosis Toe infection Family History Family History Father Diabetes mellitus Stomach cancer Mother HTN (hypertension) Afib Heart failure Maternal Grandfather CVD (cardiovascular disease) Maternal Grandmother Leukemia Paternal Grandfather Cancer Paternal Grandmother No problems noted. Brother No problems noted. Brother No problems noted. Brother No problems noted. Brother No problems noted. Brother No problems noted. Sister No problems noted. Sister No problems noted. Sister No problems noted. Surgical History Surgical History History of tonsillectomy Hx of colonoscopy Hx of esophagogastroduodenoscopy Social History Social History Household Members: None Housing: Condominium Alcohol intake: never Patient Tobacco Use Status: Never used Tobacco e-Cigarette/Vaping Use: Never Used Use of substances other than those prescribed or required for medical reasons: No Are you DNR?: No Advance Directives: No Advance Directives Information Provided: Yes Current occupational status: unemployed Sexual orientation: Straight/Heterosexual Gender identity: Female Cognitive needs: No Hearing needs: No Vision needs: No Meds Allergies Allergy/AdvReac Type Severity Reaction Status Date / Time No Known Allergies Allergy Verified 03/22/23 08:42 [No Known Allergies*] Home Medications Medication Instructions Recorded Confirmed Last Taken Type acetaminophen 500 mg tablet 500 mg PO Q6H PRN Pain, Moderate 05/18/21 02/19/23 Unknown History carboxymethylcellulose sodium 1 % 1 drp ophthalmic (eye) BID 02/19/23 02/19/23 Unknown History eye liquid gel drops (Refresh Liquigel) ciprofloxacin HCl 0.3 % eye drops 1 drp ophthalmic (eye) Q4H 03/22/23 Unknown History Exam Airway Mallampati Class: II (top feont 2 tteth caps) TM Dist: >3cm Neck ROM: Full Heart: rrr Lungs: cta Assessment and Plan Assessment Anesthesia Assessment: Anesthesia Plan Discussed Final Anesthetic Review NPO: Yes ASA Class: II Final Preanesthetic Review: No Changes in Pt Med Stat, Meds/Allgs Chart Reviewed and Consent Obtained/Reviewed Patient Risk: Intermediate Procedure Risk: Intermediate Anesthetic Plan Anesthetic Plan: MAC: Disposition: Standard PACU
[2023-05-08 08:53] VITALS: BMI 20.2
[2023-05-08 09:14] VITALS: BP 126/82; PULSE 72; RESP 16; TEMP 36.1; O2SAT 98
[2023-05-08] MEDS: Lactated Ringers 1,000 ML 100 ML IVCONT (09:19)
--- NOTE | 2023-05-08 09:37 | MHC.SHP ---
Pre-Procedural Eval Section A Date of Service: 05/08/23 Section B Chief Complaint: GERD,Hemorrhage of anus and rectum Details of Present Illness: dysphagia Relevant Family History (Specify if Yes): No Relevant Social History: None Present Medications: see Short Stay Collaborative assessment Medical History: Significant History (Arthritis of right wrist Endocervical polyp GERD (gastroesophageal reflux disease) History of COVID-19 History of iron deficiency anemia Hx of migraines Scoliosis Toe infectio) History of Previous Operations: Relevant previous surgery/procedure and date(s) (History of tonsillectomy Hx of colonoscopy Hx of esophagogastroduodenoscopy) Allergies: Allergies Allergy/AdvReac Type Severity Reaction Status Date / Time No Known Allergies Allergy Verified 03/22/23 08:42 [No Known Allergies*] Review of Systems Sugical H&P ROS: Negative: Constitution, Cardiovascular, Respiratory, Neurological, Psychiatric, Hem-Onc, Allergic/Immunologic, Gastrointestinal, Genitourinary, Musculoskeletal, Integumentary, Endocrine and Eyes/Ears/Nose/Throat Exam Surgical H&P Exam: Normal: HEENT, Normal: Heart, Normal: Lungs, Normal: Extremities, Normal: Abdomen, Normal: Skin and Normal: Neurological Plan Diagnosis/Plan: Unchanged I have reviewed the history and physical and performed a pertinent physical examination on my patient. No changes have occurred unless specified. Time Spent With Patient Time: Total time managing care of this patient today ____ minutes.
--- NOTE | 2023-05-08 09:39 | W.PM.OPN ---
Operative Note Operative Note Date of Service: 05/08/23 Narrative: Operative Information Procedure Description: EGD, Colonoscopy Indication: GERD, dysphagia, rectal bleeding Anesthesia: MAC FLEXIBLE TRANSORAL UPPER GASTROINTESTINAL ENDOSCOPY AND COLONOSCOPY PROCEDURE NOTE UPPER ENDOSCOPY Consent: Indications for the procedure and potential complications of bleeding, perforation, reaction to medications and missed diagnosis were discussed with the patient and informed consent was obtained. Instrument: Olympus GIF H 190 J mid size upper endoscope Monitoring: Vital signs and clinical assessment, continuous EKG monitoring, Pulse oximetry, Carbon Dioxide monitoring and blood pressure monitoring were done throughout the procedure. Procedure: The patient was placed in the left lateral decubitis position and pre-procedure medications were administered and a bite block was placed. The endoscope was inserted into the mouth and advanced under direct vision to the third part of duodenum. A careful inspection was made as the upper endoscope was withdrawn including a retroflexed examination of the proximal stomach; Findings and interventions are described below. Findings: Larynx:normal Esophagus: GE junction at 44 cm, diaphragm hiatus at 44 cm, mild esophagitis, bx taken from GEJ and distal esophagus. Balloon dilation done to 19 mm at GEJ and 18 mm at UES, no tears seen Stomach: Mild erythematous mucosa. Biopsies were obtained. Grade 2 flap valve on retroflexed examination of the cardia. Duodenum: Normal bulb and descending duodenum, Intervention: Biopsies as noted above COLONOSCOPY Instrument: Olympus variable stiffness pediatric scope 190L Colonoscopy Monitoring: Vital signs and clinical assessment, continuous EKG monitoring, Pulse oximetry, Carbon Dioxide monitoring and blood pressure monitoring were done throughout the procedure. Colon withdrawal time was 9 minutes. Procedure: The patient was placed in the left lateral decubitis position and pre-procedure medications were administered. After a digital rectal examination of the ano-rectum, the video colonoscope was inserted into the rectum and advanced through the colon to the cecum/TI. The colonoscope was slowly withdrawn in a retrograde panoramic fashion and the colon mucosa was carefully examined including a retroflexed view of the rectum. Findings and interventions are described below. Procedure Difficulty:moderate Findings: Terminal Ileum-normal Cecum:normal Ascending Colon: normal Transverse Colon -normal Descending Colon:normal Sigmoid Colon: severe diverticulosis, tortuous colon Rectum: Retroflexion with medium sized internal hemorrhoids, grade I with red lindsay Anorectum - normal Colon preparation: [place] Bowel Preparation Scale Right colon; 2 Transverse colon: 2 Left colon; 3 (0 = Unprepared colon segment with mucosa not seen due to solid stool that cannot be cleared. 1 = Portion of mucosa of the colon segment seen, but other areas of the colon segment not well seen due to staining, residual stool and/or opaque liquid. 2 = Minor amount of residual staining, small fragments of stool and/or opaque liquid, but mucosa of colon segment seen well. 3 = Entire mucosa of colon segment seen well with no residual staining, small fragments of stool or opaque liquid) Impression and Post Procedure Diagnosis: Endoscopy Findings: esophagitis gastritis Colonoscopy Findings: internal hemorrhoids diverticular disease Plan: Await Pathology results Repeat Colonoscopy in 10 years or earlier if clinically indicated High fiber diet leaflet avoid straining at stool, epsom salts and sitz bath, anusol supps or cream if ongoing hemorrhoidal sx then refer surgery cont with PPI as helping Above findings were reviewed with the patient and relevant handouts were provided if indicated.
[2023-05-08 10:36] VITALS: BP 101/60; PULSE 70; RESP 16; TEMP 37.1; O2SAT 97
[2023-05-08 10:51] VITALS: BP 111/78; PULSE 64; RESP 16; TEMP 36.7; O2SAT 97
== END 2023-05-08 12:20 | disposition home or self-care (01) ==
PROVIDERS: PCP Internal Medicine; Visit Provider Internal Medicine Gastroenterology
PROC: (CPT 45378; principal; 2023-05-08 10:10)
DX: K62.5 Hemorrhage of anus and rectum (principal); K57.30 Diverticulosis of large intestine without perforation or abscess without bleeding; K64.0 First degree hemorrhoids; R13.10 Dysphagia, unspecified; K21.9 Gastro-esophageal reflux disease without esophagitis; K29.50 Unspecified chronic gastritis without bleeding; K20.80 Other esophagitis without bleeding; K44.9 Diaphragmatic hernia without obstruction or gangrene; E55.9 Vitamin D deficiency, unspecified; Z86.16 Personal history of COVID-19; Z79.899 Other long term (current) drug therapy
CPT/HCPCS: 45378; 43249; 43239; 88305; 88342; C1726

== ENCOUNTER → 2023-05-20 09:33 | Outpatient (BNVA) | payer OTHER, SELFPAY | PROVIDERS: PCP Internal Medicine; Visit Provider Internal Medicine Gastroenterology | DX: K21.9 Gastro-esophageal reflux disease without esophagitis (principal); K57.90 Diverticulosis of intestine, part unspecified, without perforation or abscess without bleeding; R13.10 Dysphagia, unspecified | CPT/HCPCS: 99212 ==

== ENCOUNTER 2023-06-25 08:27 | Outpatient (AMB) | payer OTHER, SELFPAY ==
--- NOTE | 2023-06-25 08:57 | AM.OFFWIN_ITS ---
Intake Vital Signs 06/25/23 08:59 BP 112/70 Blood Pressure Location Rt brachial Position Sitting Pulse 77 Pulse Source Pulse Oximeter Temp 99.1 F Temp Source Temporal Artery Scan Pulse Oximetry (%) 98 Oxygen Delivery Method Room Air Oxygen Flow Rate 99.1 Intake Visit Reasons: EP, abdominal cramp and pain Intake Note: Patient here because she has been feeling a little off for a couple of days now, she has been experiencing some stomach pain, dizziness, slight diarrhea but mostly constipation, has a funny taste in her mouth. Patient Tobacco Use Status: Never used Tobacco Allergies No Known Allergies [No Known Allergies*] Allergy (Verified 06/25/23 08:59) Do you need a note to return to daycare/school/sports/work: No HPI EP, abdominal cramp and pain HPI Details 63-year-old female presents to the office for a sick visit. Patient has been experiencing symptoms of nausea, cramping in the lower abdomen and 1 or 2 episodes of diarrhea in the past few days. Her appetite is reduced. [facility] Medical History Arthritis of right wrist Endocervical polyp GERD (gastroesophageal reflux disease) History of COVID-19 History of iron deficiency anemia Hx of migraines Scoliosis Toe infection Surgical History History of tonsillectomy Hx of colonoscopy Hx of esophagogastroduodenoscopy Family History Father Diabetes mellitus Stomach cancer Mother HTN (hypertension) Afib Heart failure Maternal Grandfather CVD (cardiovascular disease) Maternal Grandmother Leukemia Paternal Grandfather Cancer Paternal Grandmother No problems noted. Brother No problems noted. Brother No problems noted. Brother No problems noted. Brother No problems noted. Brother No problems noted. Sister No problems noted. Sister No problems noted. Sister No problems noted. Social History Household Members: None Housing: Condominium Alcohol intake: never Patient Tobacco Use Status: Never used Tobacco e-Cigarette/Vaping Use: Never Used Current occupational status: unemployed Sexual orientation: Straight/Heterosexual Gender identity: Female Cognitive needs: No Hearing needs: No Vision needs: No Physical Exam Vital Signs: Last Vital Signs Temp 99.1 F 06/25/23 08:59 Pulse 77 06/25/23 08:59 BP 112/70 06/25/23 08:59 Pulse Ox 98 06/25/23 08:59 Oxygen Delivery Method Room Air 06/25/23 08:59 Oxygen Flow Rate 99.1 06/25/23 08:59 Const General: cooperative and healthy appearing Nutritional Appearance: well nourished Orientation/consciousness: patient oriented x3 Limitations: no limitations HEENT Head: Yes normal to inspection Eyes General: appearance normal, both eyes and all related structures Neck Neck: Yes normal visual inspection Chest Chest palpation & inspection: normal palpation of entire chest wall Resp Effort & Inspection: normal respiratory effort GI Other: Benign exam. Bowel sounds heard in all quadrants. No tenderness. Neuro General: patient oriented x3 Assessment & Plan Assessment & Plan (1) Abdominal pain: Code(s): R10.9 - Unspecified abdominal pain Qualifiers: Abdominal location: generalized Qualified Code(s): R10.84 - Generalized abdominal pain Plan: Medications for GERD started. Blood work to rule out possibility of diverticulitis ordered. Will call with the results. Orders: Orders Basic Metabolic Panel Today R10.9 - Unspecified abdominal pain Liver Panel Today R10.9 - Unspecified abdominal pain Thyroid Stimulating Hormone Today R10.9 - Unspecified abdominal pain Complete Blood Count no Diff Today R10.9 - Unspecified abdominal pain Erythrocyte Sedimentation Rate Today R10.9 - Unspecified abdominal pain UA and rflx microscopic Today R10.9 - Unspecified abdominal pain Medications: New pantoprazole 40 mg PO DAILY 30 tabs 0RF Coding Level of Care Code Est Pt Level 4 (46305) Diagnoses Abdominal pain R10.84 Abdominal location: generalized
[2023-06-25 08:59] VITALS: BP 112/70; PULSE 77; TEMP 37.3; O2SAT 98
== END 2023-06-25 10:32 | disposition home or self-care (01) ==
PROVIDERS: PCP Internal Medicine; Visit Provider Internal Medicine
DX: R10.84 Generalized abdominal pain (principal)
CPT/HCPCS: 99214

== ENCOUNTER 2023-06-25 09:23 | Outpatient (REF) | payer OTHER, SELFPAY ==
[2023-06-25 11:38] LABS: Appearance Urine Clear; Color Urine Yellow; Glucose Urine UA Negative (Negative); Leukocyte Esterase Urine Negative (Negative); Nitrite Urine Negative (Negative); PH 5.5 (5.0-9.0); Specific Gravity - Urine 1.015 (1.005-1.025); UMIC TRIGGER UA YES; Urine Blood Trace (Negative); Urine Ketones Negative (Negative); Urine Protein Negative (Neg-Trace)
[2023-06-25 11:44] LABS: Bacteria Urine None Seen (None Seen); Hyaline Casts Urine 0-2 /LPF (0-2); RBC Urine 0-2 /HPF (0-2); Squamous Epithelial Cell Urine 0-2 /HPF (0-2); WBC Urine 0-5 /HPF (0-5)
[2023-06-25 11:44] LABS: Hematocrit 39.9 % (37.0-47.0); Mean Corpuscular HGB Conc 32.6 g/dl (31.0-35.0); Mean Corpuscular Hemoglobin 30.4 pg (27.0-33.0); Mean Corpuscular Volume 93.2 fL (80.0-98.0); Mean Platelet Volume 10.5 fL (9.4-12.3); Platelet Count 271 X10*3/uL (160-400); Red Blood Count 4.28 X10*6/uL (4.20-5.50); Red Cell Distribution Width 12.1 % (11.0-16.0); White Blood Count 6.3 X10*3/uL (4.8-10.8)
[2023-06-25 12:21] LABS: Erythrocyte Sedimentation Rate 4 MM/HR (0-20)
[2023-06-25 13:05] LABS: Alanine Aminotransferase 15 U/L (0-31); Albumin Level 4.6 g/dL (3.5-5.0); Alkaline Phosphatase 78 U/L (39-117); Anion Gap 13 (12-20); Aspartate Amino Transferase 18 U/L (5-31); Bilirubin Direct 0.2 mg/dL (0.0-0.5); Bilirubin Total 0.6 mg/dL (0.0-1.0); Blood Urea Nitrogen 17 mg/dL (9-16); Calcium 9.9 mg/dL (8.4-10.2); Carbon Dioxide 27 mmol/L (22-29); Chloride 106 mmol/L (96-108); Estimated Glomerular Filt Rate > 60; Glucose Random 93 mg/dL (60-115); Potassium 4.6 mmol/L (3.3-5.1); Sodium 141 mmol/L (135-145); Thyroid Stimulating Hormone 0.85 uIU/mL (0.32-4.0); Total Protein 7.5 g/dL (6.5-8.0)
== END 2023-06-25 09:24 | disposition home or self-care (01) ==
LOC: HO.HMGCLDS 09:23
PROVIDERS: PCP Internal Medicine; Visit Provider Internal Medicine
DX: R10.9 Unspecified abdominal pain (principal)
CPT/HCPCS: 36415; 80048; 80076; 81001; 84443; 85027; 85652

== ENCOUNTER 2023-06-27 08:06 | Outpatient (AMB) | payer OTHER, SELFPAY ==
[2023-06-27 08:19] VITALS: BP 122/64; PULSE 77; TEMP 36.6; O2SAT 98; BMI 19.4
--- NOTE | 2023-06-27 08:19 | MHC.OFFWIV ---
Intake Vital Signs 06/27/23 08:19 Height 5 ft 6 in Weight 120 lb BMI 19.4 BP 122/64 Blood Pressure Location Lt brachial Position Sitting Pulse 77 Pulse Source Pulse Oximeter Temp 97.8 F Temp Source Oral Pulse Oximetry (%) 98 Oxygen Delivery Method Room Air Intake Visit Reasons: EP RT Ear concern Intake Note: Pt is here today for Rt ear dicomfort, pt states its been a couple of days. Patient Tobacco Use Status: Never used Tobacco Allergies No Known Allergies [No Known Allergies*] Allergy (Verified 06/27/23 08:20) Do you need a note to return to daycare/school/sports/work: No HPI EP RT Ear concern HPI Details Patient presents for evaluation of right ear discomfort. She is concerned because she is going on a boat on Saturday. No drainage or discharge no recent illness PFSH Medical History Arthritis of right wrist Endocervical polyp GERD (gastroesophageal reflux disease) History of COVID-19 History of iron deficiency anemia Hx of migraines Scoliosis Toe infection Surgical History History of tonsillectomy Hx of colonoscopy Hx of esophagogastroduodenoscopy Family History Father Diabetes mellitus Stomach cancer Mother HTN (hypertension) Afib Heart failure Maternal Grandfather CVD (cardiovascular disease) Maternal Grandmother Leukemia Paternal Grandfather Cancer Paternal Grandmother No problems noted. Brother No problems noted. Brother No problems noted. Brother No problems noted. Brother No problems noted. Brother No problems noted. Sister No problems noted. Sister No problems noted. Sister No problems noted. Social History Household Members: None Housing: Condominium Alcohol intake: never Patient Tobacco Use Status: Never used Tobacco e-Cigarette/Vaping Use: Never Used Current occupational status: unemployed Sexual orientation: Straight/Heterosexual Gender identity: Female Cognitive needs: No Hearing needs: No Vision needs: No Review of Systems Const Denies headache(s) Eyes Denies change in vision, Denies dry eyes, Denies floaters, Denies irritation, Reports itchy eyes and Denies eye pain ENT Reports no additional complaints and Denies headache(s) Card Reports no additional complaints Musc Denies numbness Skin/Breast Denies skin pain, Denies skin swelling and Denies unusual bruising Neuro Denies headache(s), Denies focal weakness and Denies numbness Aller/Immun Reports itchy eyes Physical Exam Vital Signs: Last Vital Signs Temp 97.8 F 06/27/23 08:19 Pulse 77 06/27/23 08:19 BP 122/64 06/27/23 08:19 Pulse Ox 98 06/27/23 08:19 Oxygen Delivery Method Room Air 06/27/23 08:19 BMI result Body Mass Index 19.4 Const General: healthy appearing and no acute distress Orientation/consciousness: patient oriented x3 HEENT Other: Left ear unremarkable TM normal, right ear mild amount of cerumen in the ear canal, not occluded, TM unremarkable Neuro General: patient oriented x3 Assessment & Plan Assessment & Plan (1) Ear pain: Code(s): H92.09 - Otalgia, unspecified ear Plan Mild cerumen in the right ear patient advised to use Debrox at home and return if she needs her ears irrigated after that. Coding Level of Care Code Est Pt Level 3 (38180) Diagnoses Ear pain H92.09
== END 2023-06-27 09:22 | disposition home or self-care (01) ==
PROVIDERS: PCP Internal Medicine; Visit Provider Emergency Medicine
DX: H92.09 Otalgia, unspecified ear (principal)
CPT/HCPCS: 99213

== ENCOUNTER 2023-07-18 08:01 | Outpatient (AMB) | payer OTHER, SELFPAY ==
[2023-07-18 08:03] VITALS: BP 120/68; PULSE 67; TEMP 36.6; O2SAT 98; BMI 18.8
--- NOTE | 2023-07-18 08:03 | AM.OFFWIN_ITS ---
Intake Vital Signs 07/18/23 08:03 Height 5 ft 6 in Weight 116 lb 8 oz BMI 18.8 BP 120/68 Blood Pressure Location Rt brachial Position Sitting Pulse 67 Pulse Source Pulse Oximeter Temp 97.8 F Temp Source Oral Pulse Oximetry (%) 98 Oxygen Delivery Method Room Air Intake Visit Reasons: EP Hit her head Intake Note: Pt states she was trying to reach a metal object in her cabin last night night, fell down in her her in the Rt side of her nondenominational. Pt states she has headaches. Patient Tobacco Use Status: Never used Tobacco Allergies No Known Allergies [No Known Allergies*] Allergy (Verified 07/18/23 08:05) Do you need a note to return to daycare/school/sports/work: No HPI HPI Comments History of Present Illness Details 63-year-old female who presents for his injury. Patient was getting something off the shelf of last night and an object fell striking her in the hea d. She denies any loss of consciousness none anticoagulation no nausea vomiting. she endorses will give tenderness on the upper cheek bone and headache PFSH Medical History Arthritis of right wrist Endocervical polyp GERD (gastroesophageal reflux disease) History of COVID-19 History of iron deficiency anemia Hx of migraines Scoliosis Toe infection Surgical History History of tonsillectomy Hx of colonoscopy Hx of esophagogastroduodenoscopy Family History Father Diabetes mellitus Stomach cancer Mother HTN (hypertension) Afib Heart failure Maternal Grandfather CVD (cardiovascular disease) Maternal Grandmother Leukemia Paternal Grandfather Cancer Paternal Grandmother No problems noted. Brother No problems noted. Brother No problems noted. Brother No problems noted. Brother No problems noted. Brother No problems noted. Sister No problems noted. Sister No problems noted. Sister No problems noted. Social History Household Members: None Housing: Condominium Alcohol intake: never Patient Tobacco Use Status: Never used Tobacco e-Cigarette/Vaping Use: Never Used Current occupational status: unemployed Sexual orientation: Straight/Heterosexual Gender identity: Female Cognitive needs: No Hearing needs: No Vision needs: No Review of Systems Const All systems reviewed & are unremarkable except as noted in HPI and below Denies fever(s), Reports headache(s) and Denies weakness Eyes Reports no additional complaints ENT Reports no additional complaints and Reports headache(s) Card Reports no additional complaints, Denies chest pain, Denies leg edema and Denies dyspnea Resp Denies cough and Denies dyspnea GI Denies abdominal pain, Denies nausea and Denies vomiting Denies urinary frequency and Denies dysuria Musc Details: tenderness on right upper cheek bone Neuro Reports headache(s) and Denies weakness Psych Reports no additional complaints Endo Reports no additional complaints Physical Exam Vital Signs: Last Vital Signs Temp 97.8 F 07/18/23 08:03 Pulse 67 07/18/23 08:03 BP 120/68 07/18/23 08:03 Pulse Ox 98 07/18/23 08:03 Oxygen Delivery Method Room Air 07/18/23 08:03 BMI result Body Mass Index 18.8 Skin Other: TTP right temporal area no obvious bruising or hematoma Neuro Other: NEURO PHYSCIAL EXAM Alert and oriented to person, place, time speech: clear, fluent CN II: visual acuity grossly intact b/l, PERRLA CN III, IV, : EOMI CN V: facial sensation grossly intact to light touch b/l CN VII: symmetric facial movement b/l, no facial droop CN VIII: hearing intact to finger rub b/l, no nystagmus CN IX, X: uvula midline CN XI: 5/5 strength with SCM and trapezius b/l CN XII: midline tongue protrusion, no atrophy or fasciculations motor: 5/5 muscle strength of UE/LE b/l, no pronator drift sensory: grossly intact b/l to light touch coordination: No dysmetria or dysdiadochokinesia with rapid alternating movement and finger to nose testing Assessment & Plan Assessment & Plan (1) Post concussive syndrome: Code(s): F07.81 - Postconcussional syndrome Plan VSS. Exam patient'spresents oriented no acute distress exam is otherwise unremarkable note above. Based on kidney head CT rule patient does not require imaging at this time likely suffering from postconcussive syndrome recommend Tylenol follow-up with PCP. Discharge instructions, follow up and treatment are discussed with patient in my usual fashion. Alternatives in treatment are also discussed. The patient will return for worsening symptoms or as needed. Advised that any labs/imaging ordered will be followed up on and contact made if further treatment needed. Counseled that patient's condition may require further evaluation and/or treatment. Symptoms of concern for worsening disorder discussed in detail in my customary manner. Patient does verbalize understanding of the plan, there are no apparent barriers to communication. The patient is given the opportunity to ask questions and have them answered to his/her satisfaction Patient Instructions: you seen evaluated for head injury. At this time examination is reassuring. You might be suffering from a concussion. Please take it easy with axial rotation may utilize Tylenol as needed. Please limit screen time. If experiencing new worsening symptoms such as worsening headache dizziness nausea vomiting please present to the emergency department for imaging. Coding Level of Care Code Est Pt Level 3 (28206) Diagnoses Post concussive syndrome F07.81
== END 2023-07-18 08:22 | disposition home or self-care (01) ==
PROVIDERS: PCP Internal Medicine; Visit Provider Physician Assistant
DX: G44.309 Post-traumatic headache, unspecified, not intractable (principal); W22.8XXA Striking against or struck by other objects, initial encounter
CPT/HCPCS: 99213

== ENCOUNTER 2023-07-29 08:25 | Outpatient (AMB) | payer OTHER, SELFPAY ==
[2023-07-29 08:31] VITALS: BP 118/74; PULSE 78; TEMP 36.6; O2SAT 98; BMI 19.0
--- NOTE | 2023-07-29 08:31 | AM.OFFWIN_ITS ---
Intake Vital Signs 07/29/23 08:31 Height 5 ft 6 in Weight 118 lb BMI 19.0 BP 118/74 Blood Pressure Location Rt brachial Position Sitting Pulse 78 Pulse Source Pulse Oximeter Temp 97.9 F Pulse Oximetry (%) 98 Intake Visit Reasons: EP Ear Clogged/Headaches Intake Note: pt is here for c/o clogged ear and headaches Patient Tobacco Use Status: Never used Tobacco Allergies No Known Allergies [No Known Allergies*] Allergy (Verified 07/29/23 09:12) Do you need a note to return to daycare/school/sports/work: Yes HPI EP Ear Clogged/Headaches HPI Details 63-year-old female presents to the [facility] for a sick visit. Patient had injured the right side of her head a week ago. Apparently up object had fallen on her head. She is complaining of headaches and blockage in the right ear. Was seen in the urgent care last week. Patient wanted a re-evaluation on the headache. No nausea or vomiting. No blurred vision or loss of c onsciousness per [facility] Medical History Arthritis of right wrist Endocervical polyp GERD (gastroesophageal reflux disease) History of COVID-19 History of iron deficiency anemia Hx of migraines Scoliosis Toe infection Surgical History History of tonsillectomy Hx of colonoscopy Hx of esophagogastroduodenoscopy Family History Father Diabetes mellitus Stomach cancer Mother HTN (hypertension) Afib Heart failure Maternal Grandfather CVD (cardiovascular disease) Maternal Grandmother Leukemia Paternal Grandfather Cancer Paternal Grandmother No problems noted. Brother No problems noted. Brother No problems noted. Brother No problems noted. Brother No problems noted. Brother No problems noted. Sister No problems noted. Sister No problems noted. Sister No problems noted. Social History Household Members: None Housing: Condominium Alcohol intake: never Patient Tobacco Use Status: Never used Tobacco e-Cigarette/Vaping Use: Never Used Current occupational status: unemployed Sexual orientation: Straight/Heterosexual Gender identity: Female Cognitive needs: No Hearing needs: No Vision needs: No Physical Exam Vital Signs: Last Vital Signs Temp 97.9 F 07/29/23 08:31 Pulse 78 07/29/23 08:31 BP 118/74 07/29/23 08:31 Pulse Ox 98 07/29/23 08:31 BMI result Body Mass Index 19.0 Const General: cooperative and healthy appearing Nutritional Appearance: well nourished Orientation/consciousness: patient oriented x3 Limitations: no limitations HEENT Head: Yes normal to inspection Eyes General: appearance normal, both eyes and all related structures Neck Neck: Yes normal visual inspection Chest Chest palpation & inspection: normal palpation of entire chest wall Resp Effort & Inspection: normal respiratory effort Neuro General: patient oriented x3 Assessment & Plan Assessment & Plan (1) Headache: Code(s): R51.9 - Headache, unspecified Plan: Patient was reassured. Meloxicam called in. If symptoms not better to follow- up here. Coding Level of Care Code Est Pt Level 3 (68285) Diagnoses Headache R51.9
== END 2023-07-29 09:11 | disposition home or self-care (01) ==
PROVIDERS: PCP Internal Medicine; Visit Provider Internal Medicine
DX: R51.9 Headache, unspecified (principal)
CPT/HCPCS: 99213

== ENCOUNTER 2023-08-26 08:01 | Outpatient (AMB) | payer OTHER, SELFPAY ==
--- NOTE | 2023-08-26 08:02 | MHC.OFFWIV ---
Intake Vital Signs 08/26/23 08:03 Weight 121 lb 4 oz BP 112/72 Blood Pressure Location Rt brachial Position Sitting Pulse 72 Pulse Source Pulse Oximeter Temp 98.8 F Temp Source Temporal Artery Scan Pulse Oximetry (%) 99 Oxygen Delivery Method Room Air Intake Visit Reasons: EP RT ear ?Infection/Jaw sore when eating Intake Note: Patient here for right ear pain that has been present on and off for a few days, she states it is bothersome when she eats and has a sore jaw. Patient Tobacco Use Status: Never used Tobacco Allergies No Known Allergies [No Known Allergies*] Allergy (Verified 08/26/23 08:11) Medication List - Last Reconciled 08/26/23 by Bishop Crespo MD acetaminophen 500 mg PO Q6H PRN hydrocortisone 2.5% (Procto-Med HC) 1 appl SC BID-QID PRN meloxicam 15 mg PO DAILY psyllium husk (Metamucil) 0.4 grams PO DAILY Do you need a note to return to daycare/school/sports/work: No HPI EP RT ear ?Infection/Jaw sore when eating HPI Details 63-year-old female presents to the office for a sick visit. Patient is complaining of pain in the right ear and jaw. Symptoms started a few days ago. No fall or injury. Patient reports that it is difficult to chew. No difficulty swallowing. [facility] Medical History Arthritis of right wrist Endocervical polyp GERD (gastroesophageal reflux disease) History of COVID-19 History of iron deficiency anemia Hx of migraines Scoliosis Toe infection Surgical History History of tonsillectomy Hx of colonoscopy Hx of esophagogastroduodenoscopy Family History Father Diabetes mellitus Stomach cancer Mother HTN (hypertension) Afib Heart failure Maternal Grandfather CVD (cardiovascular disease) Maternal Grandmother Leukemia Paternal Grandfather Cancer Paternal Grandmother No problems noted. Brother No problems noted. Brother No problems noted. Brother No problems noted. Brother No problems noted. Brother No problems noted. Sister No problems noted. Sister No problems noted. Sister No problems noted. Social History Household Members: None Housing: Condominium Alcohol intake: never Patient Tobacco Use Status: Never used Tobacco e-Cigarette/Vaping Use: Never Used Current occupational status: unemployed Sexual orientation: Straight/Heterosexual Gender identity: Female Cognitive needs: No Hearing needs: No Vision needs: No Physical Exam Vital Signs: Last Vital Signs Temp 98.8 F 08/26/23 08:03 Pulse 72 08/26/23 08:03 BP 112/72 08/26/23 08:03 Pulse Ox 99 08/26/23 08:03 Oxygen Delivery Method Room Air 08/26/23 08:03 Const General: cooperative and healthy appearing Nutritional Appearance: well nourished Orientation/consciousness: patient oriented x3 Limitations: no limitations HEENT Other: Right ear: Wax present. Tympanic membrane visualized. No evidence of infection. Face: Right TMJ is slightly tender to touch. Pain on [id number] motion. Head: Yes normal to inspection Eyes General: appearance normal, both eyes and all related structures Neck Neck: Yes normal visual inspection Chest Chest palpation & inspection: normal palpation of entire chest wall Resp Effort & Inspection: normal respiratory effort Neuro General: patient oriented x3 Assessment & Plan Assessment & Plan (1) TMJ dysfunction: Code(s): M26.609 - Unspecified temporomandibular joint disorder, unspecified side Plan: Meloxicam called in. If symptoms do not improve to follow-up here. Coding Level of Care Code Est Pt Level 3 (22465) Diagnoses TMJ dysfunction M26.609
[2023-08-26 08:03] VITALS: BP 112/72; PULSE 72; TEMP 37.1; O2SAT 99
== END 2023-08-26 08:56 | disposition home or self-care (01) ==
PROVIDERS: PCP Internal Medicine; Visit Provider Internal Medicine
DX: M26.601 Right temporomandibular joint disorder, unspecified (principal)
CPT/HCPCS: 99213

== ENCOUNTER 2023-09-02 11:38 | Outpatient (AMB) | payer OTHER, SELFPAY ==
[2023-09-02 13:29] VITALS: BP 122/72; PULSE 80; TEMP 36.6; O2SAT 98; BMI 19.5
--- NOTE | 2023-09-02 13:29 | AM.OFFWIN_ITS ---
Intake Vital Signs 09/02/23 13:29 Height 5 ft 6 in Weight 54.885 kg BMI 19.5 BP 122/72 Blood Pressure Location Rt brachial Position Sitting Pulse 80 Pulse Source Pulse Oximeter Temp 97.8 F Temp Source Temporal Artery Scan Pulse Oximetry (%) 98 Oxygen Delivery Method Room Air Intake Visit Reasons: EP, right eye Intake Note: patient is here today for rt eye Patient Tobacco Use Status: Never used Tobacco Allergies No Known Allergies [No Known Allergies*] Allergy (Verified 09/02/23 13:30) Do you need a note to return to daycare/school/sports/work: No HPI EP, right eye HPI Details Patient is experiencing discomfort in her right after walking by someone weed whacking in her yd and something hit her in the eye. She denies headache, vision changes, discharge or bleeding from an or near the eye. She notes it just feels as if something is in her eye. She does not wear contact lenses. [facility] Medical History Arthritis of right wrist Endocervical polyp GERD (gastroesophageal reflux disease) History of COVID-19 History of iron deficiency anemia Hx of migraines Scoliosis Toe infection Surgical History History of tonsillectomy Hx of colonoscopy Hx of esophagogastroduodenoscopy Family History Father Diabetes mellitus Stomach cancer Mother HTN (hypertension) Afib Heart failure Maternal Grandfather CVD (cardiovascular disease) Maternal Grandmother Leukemia Paternal Grandfather Cancer Paternal Grandmother No problems noted. Brother No problems noted. Brother No problems noted. Brother No problems noted. Brother No problems noted. Brother No problems noted. Sister No problems noted. Sister No problems noted. Sister No problems noted. Social History Household Members: None Housing: Condominium Alcohol intake: never Patient Tobacco Use Status: Never used Tobacco e-Cigarette/Vaping Use: Never Used Current occupational status: unemployed Sexual orientation: Straight/Heterosexual Gender identity: Female Cognitive needs: No Hearing needs: No Vision needs: No Review of Systems Const Reports as per HPI and Reports no additional complaints Eyes Reports no additional complaints Physical Exam Vital Signs: Last Vital Signs Temp 97.8 F 09/02/23 13:29 Pulse 80 09/02/23 13:29 BP 122/72 09/02/23 13:29 Pulse Ox 98 09/02/23 13:29 Oxygen Delivery Method Room Air 09/02/23 13:29 BMI result Body Mass Index 19.5 Const General: cooperative, comfortable and no acute distress Orientation/consciousness: patient oriented x3 Eyes General: appearance normal, both eyes and all related structures Visual Atkinson: normal visual atkinson by confrontation Alignment and Position: alignment normal Periorbital: periorbital findings normal Eyelids: Yes eyelids normal Conjunctivae: conjunctivae normal Sclerae: scleral abnormal (Abrasion noted) Corneas: corneas abnormal on the right fluorescein used and abrasion diffuse and at the following clock position (10-11) and fluorescein used Pupils: Equal, round and reactive pupils present EOM: EOMs intact bilaterally Resp Effort & Inspection: normal respiratory effort Auscultation: clear to auscultation bilaterally Cardio Rate: regular rate Rhythm: regular rhythm Heart sounds: S1 normal heart sound present and S2 normal heart sound present Neuro General: patient oriented x3 Cranial nerves: Yes Equal, round and reactive pupils present Assessment & Plan Assessment & Plan (1) Corneal abrasion: Code(s): S05.00XA - Injury of conjunctiva and corneal abrasion without foreign body, unspecified eye, initial encounter Qualifiers: Encounter type: initial encounter Laterality: right Qualified Code(s): S05.01XA - Injury of conjunctiva and corneal abrasion without foreign body, right eye, initial encounter Plan: Will treat with Polytrim drops. Return to clinic if symptoms do not improve over the next 2-3 days or worsen any way, or CI professional. Medications: New polymyxin B sulf-trimethoprim 10,000 unit- 1 mg/mL (Polytrim) while awake; do not exceed 6 doses in 24 hours 1 drp ophthalmic (eye) QID 7 days 10 mL 0RF corneal abrasion Coding Level of Care Code Est Pt Level 3 (30288) Diagnoses Abrasion of right cornea, initial encounter S05.01XA Encounter type: initial encounter Laterality: right
== END 2023-09-02 13:54 | disposition home or self-care (01) ==
PROVIDERS: PCP Internal Medicine; Visit Provider Physician Assistant
DX: S05.01XA Injury of conjunctiva and corneal abrasion without foreign body, right eye, initial encounter (principal)
CPT/HCPCS: 99213

== ENCOUNTER 2023-09-06 11:38 | Outpatient (AMB) | payer OTHER, SELFPAY ==
[2023-09-06 11:45] VITALS: BP 152/74; PULSE 82; O2SAT 99
--- NOTE | 2023-09-06 11:45 | A.OFFPC_ITS ---
Vital Signs 09/06/23 11:45 Height 5 ft 6 in BP 152/74 H Blood Pressure Location Rt brachial Position Sitting Pulse 82 Pulse Source Pulse Oximeter Pulse Oximetry (%) 99 Oxygen Delivery Method Room Air Intake Visit Reasons: Right Ear Pain Allergies No Known Allergies [No Known Allergies*] Allergy (Verified 09/06/23 11:46) Medication List - Last Reconciled 09/06/23 by Rosio Chandler MD acetaminophen 500 mg PO Q6H PRN meloxicam 15 mg PO DAILY polymyxin B sulf-trimethoprim 10,000 unit- 1 mg/mL (Polytrim) 1 drp ophthalmic (eye) QID 7 days Tobacco use date assessed: 09/06/23 Dental Screening Dental Screen Date: 09/06/23 Did you have a dental visit in the last 12 months?: Yes Did you have a dental problem in the last 6 months where you did not have access to dental care?: No Was dental information given to patient?: Patient has dentist HPI Right Ear Pain HPI Details Patient is 63-year-old female came in today to be evaluated for discomfort right side of her face around here Patient was evaluated early this month for similar problem and was diagnosed with TMJ Provider prescribed meloxicam which patient has been taking without any relief. On examination she has mild erythema of tympanic membrane No tragus pressure pain I am treating her with 20 mg of prednisone once a day for 5 days and azithromycin She may stop taking meloxicam Patient is to return in 7-10 days for re-evaluation. Review of system: There is no fever no headache no dizziness no chills no sore throat There is no nausea vomiting diarrhea No chest pain no cough PFSH Medical History History of COVID-19 Endocervical polyp GERD (gastroesophageal reflux disease) Arthritis of right wrist Scoliosis Hx of migraines History of iron deficiency anemia Toe infection Surgical History Hx of esophagogastroduodenoscopy Hx of colonoscopy History of tonsillectomy Family History Father Diabetes mellitus Stomach cancer Mother HTN (hypertension) Afib Heart failure Maternal Grandfather CVD (cardiovascular disease) Maternal Grandmother Leukemia Paternal Grandfather Cancer Paternal Grandmother No problems noted. Brother No problems noted. Brother No problems noted. Brother No problems noted. Brother No problems noted. Brother No problems noted. Sister No problems noted. Sister No problems noted. Sister No problems noted. Social History Household Members: None Housing: Condominium Alcohol intake: never Patient Tobacco Use Status: Never used Tobacco e-Cigarette/Vaping Use: Never Used Current occupational status: unemployed Sexual orientation: Straight/Heterosexual Gender identity: Female Cognitive needs: No Hearing needs: No Vision needs: No Questionnaire Thrive Questionnaire Date Thrive assessed: 12/25/22 AUDIT C Alcohol Use Questionnaire (AUDIT-C) 1. How often do you have a drink containing alcohol?: Never 3. How often do you have six or more drinks on one occasion?: Never Total Score: 0 Score Reviewed/Action Taken: Yes XOCHITL-7 AMB Questionnaire XOCHITL-7 Date XOCHITL - 7 assessed: 12/25/22 Source: Developed by Drs. Bassem Yousif, Bekah Delacruz, Curly Lim and colleagues, with an educational tiffany from [employer]. Review of Systems Const All systems reviewed & are unremarkable except as noted in HPI and below Physical exam (Primary Care) Vital Signs: Last Vital Signs Pulse 82 09/06/23 11:45 BP 152/74 H 09/06/23 11:45 Pulse Ox 99 09/06/23 11:45 Oxygen Delivery Method Room Air 09/06/23 11:45 Tobacco/Smoking Status: Tobacco use Status Tobacco use date assessed 09/06/23 09/06/23 11:48 Patient Tobacco Use Status Never used Tobacco 09/06/23 11:48 e-Cigarette/Vaping Use Never Used 09/06/23 11:48 Thrive Assessment: Date of Thrive Assessment Date Thrive assessed 12/25/22 09/06/23 11:48 Const General: no acute distress Orientation/consciousness: patient oriented x3 Eyes General: appearance normal, both eyes and all related structures Resp Effort & Inspection: normal respiratory effort and able to speak in complete sentences Auscultation: clear to auscultation bilaterally Neuro General: patient oriented x3 Psych Mental Status: mental status grossly normal Assessment and Plan Assessment & Plan (1) Infection of right ear: Code(s): H66.91 - Otitis media, unspecified, right ear Plan Patient is 63-year-old female came in today to be evaluated for discomfort right side of her face around here Patient was evaluated early this month for similar problem and was diagnosed with TMJ Provider prescribed meloxicam which patient has been taking without any relief. On examination she has mild erythema of tympanic membrane No tragus pressure pain I am treating her with 20 mg of prednisone once a day for 5 days and azithromycin She may stop taking meloxicam Patient is to return in 7-10 days for re-evaluation. Review of system: There is no fever no headache no dizziness no chills no sore throat There is no nausea vomiting diarrhea No chest pain no cough Medications: New prednisone 20 mg PO DAILY 5 tabs 0RF 5 days azithromycin Take 2 tablets today then 1 daily 250 mg PO ONCE 5 days 6 tabs 0RF J06.9 - Acute upper respiratory infection, unspecified Coding Level of Care Code Est Pt Level 3 (90801) Diagnoses Infection of right ear H66.91
== END 2023-09-06 12:06 | disposition home or self-care (01) ==
LOC: HO.HMGC 11:38
PROVIDERS: PCP Internal Medicine; Visit Provider Internal Medicine
DX: H66.91 Otitis media, unspecified, right ear (principal)
CPT/HCPCS: 99213

== ENCOUNTER 2023-09-17 12:18 | Outpatient (AMB) | payer OTHER, SELFPAY ==
--- NOTE | 2023-09-17 12:37 | MHC.PC.OV ---
Vital Signs 09/17/23 12:38 Height 5 ft 6 in Weight 119 lb 6 oz BMI 19.3 BP 118/78 Blood Pressure Location Rt brachial Position Sitting Pulse 79 Pulse Source Pulse Oximeter Pulse Oximetry (%) 98 Oxygen Delivery Method Room Air Intake Visit Reasons: Follow up on new med per [place] Allergies No Known Allergies [No Known Allergies*] Allergy (Verified 09/17/23 12:39) Medication List - Last Reconciled 09/17/23 by Rosio Chandler MD acetaminophen 500 mg PO Q6H PRN Tobacco use date assessed: 09/17/23 Dental Screening Dental Screen Date: 09/17/23 Did you have a dental visit in the last 12 months?: Yes Did you have a dental problem in the last 6 months where you did not have access to dental care?: No Was dental information given to patient?: Patient has dentist HPI Follow up on new med per [place] HPI Details Right ear is feeling much better after a course of azithromycin and prednisone Still feels slightly block On examination she has cerumen in her ear I would recommend [id number]-eyugckj wax softening ear drops for 3 or 5 days PFSH Medical History History of COVID-19 Endocervical polyp GERD (gastroesophageal reflux disease) Arthritis of right wrist Scoliosis Hx of migraines History of iron deficiency anemia Toe infection Surgical History Hx of esophagogastroduodenoscopy Hx of colonoscopy History of tonsillectomy Family History Father Diabetes mellitus Stomach cancer Mother HTN (hypertension) Afib Heart failure Maternal Grandfather CVD (cardiovascular disease) Maternal Grandmother Leukemia Paternal Grandfather Cancer Paternal Grandmother No problems noted. Brother No problems noted. Brother No problems noted. Brother No problems noted. Brother No problems noted. Brother No problems noted. Sister No problems noted. Sister No problems noted. Sister No problems noted. Social History Household Members: None Housing: Condominium Alcohol intake: never Patient Tobacco Use Status: Never used Tobacco e-Cigarette/Vaping Use: Never Used Current occupational status: unemployed Sexual orientation: Straight/Heterosexual Gender identity: Female Cognitive needs: No Hearing needs: No Vision needs: No Questionnaire PHQ-9 Over the last 2 weeks, how often have you been bothered by any of the following problems? 1. Little interest or pleasure in doing things: not at all 2. Feeling down, depressed, or hopeless: not at all 3. Trouble falling or staying asleep, or sleeping too much: not at all 4. Feeling tired or having little energy: not at all 5. Poor appetite or overeating: not at all 6. Feeling bad about yourself - or that you are a failure or have let yourself or your family down: not at all 7. Trouble concentrating on things, such as reading the newspaper or watching television: not at all 8. Moving or speaking so slowly that other people could have noticed. Or the opposite - being so fidgety or restless that you have been moving around a lot more than usual: not at all 9. Thoughts that you would be better off or of hurting yourself in some way: not at all Total score: 0 Depression Screening Interpretation: Negative Depression Screening Done: Yes 40155 - PHQ-9 Billing: Yes Source: Developed by Drs. Bassem Yousif, Curly Anthony and colleagues, with an educational tiffany from [employer]. Thrive Questionnaire Date Thrive assessed: 12/25/22 AUDIT C Alcohol Use Questionnaire (AUDIT-C) 1. How often do you have a drink containing alcohol?: Never 3. How often do you have six or more drinks on one occasion?: Never Total Score: 0 Score Reviewed/Action Taken: Yes XOCHITL-7 AMB Questionnaire XOCHITL-7 Date XOCHITL - 7 assessed: 12/25/22 Source: Developed by Drs. Bassem Yousif, Curly Anthony and colleagues, with an educational tiffany from [employer]. Review of Systems Const All systems reviewed & are unremarkable except as noted in HPI and below Physical exam (Primary Care) Vital Signs: Last Vital Signs Pulse 79 09/17/23 12:38 BP 118/78 09/17/23 12:38 Pulse Ox 98 09/17/23 12:38 Oxygen Delivery Method Room Air 09/17/23 12:38 BMI result Body Mass Index 19.3 Tobacco/Smoking Status: Tobacco use Status Tobacco use date assessed 09/17/23 09/17/23 12:41 Patient Tobacco Use Status Never used Tobacco 09/17/23 12:41 e-Cigarette/Vaping Use Never Used 09/17/23 12:41 PHQ-9: PHQ-9 Score PHQ-9: Total score 0 09/17/23 13:04 Depression Screening Interpretation: Negative Thrive Assessment: Date of Thrive Assessment Date Thrive assessed 12/25/22 09/17/23 12:41 Const General: no acute distress Orientation/consciousness: patient oriented x3 HENMT Other: Right ear excessive cerumen Eyes General: appearance normal, both eyes and all related structures Resp Effort & Inspection: normal respiratory effort and able to speak in complete sentences Auscultation: clear to auscultation bilaterally Neuro General: patient oriented x3 Psych Mental Status: mental status grossly normal Assessment and Plan Assessment & Plan (1) Excessive cerumen in right ear canal: Code(s): H61.21 - Impacted cerumen, right ear Plan Right ear is feeling much better after a course of azithromycin and prednisone Still feels slightly block On examination she has cerumen in her ear I would recommend pzyq-rfo-laravmk wax softening ear drops for 3 or 5 days Coding Level of Care Code Est Pt Level 3 (05983) Diagnoses Excessive cerumen in right ear canal H61.21
[2023-09-17 12:38] VITALS: BP 118/78; PULSE 79; O2SAT 98; BMI 19.3
== END 2023-09-17 14:39 | disposition home or self-care (01) ==
PROVIDERS: PCP Internal Medicine; Visit Provider Internal Medicine
DX: H61.21 Impacted cerumen, right ear (principal)
CPT/HCPCS: 99213

== ENCOUNTER 2023-10-05 09:07 | Outpatient (AMB) | payer OTHER, SELFPAY ==
--- NOTE | 2023-10-05 09:09 | AM.OFFWIN_ITS ---
Intake Vital Signs 10/05/23 09:18 Weight 120 lb BP 100/70 Blood Pressure Location Rt brachial Position Sitting Pulse 68 Pulse Source Pulse Oximeter Temp 97.8 F Temp Source Oral Pulse Oximetry (%) 100 Oxygen Delivery Method Room Air Intake Visit Reasons: EST/sharp pain left side Intake Note: Pt c/o has been having pain left of back and ribs off/on x 1 week. Patient Tobacco Use Status: Never used Tobacco Allergies No Known Allergies [No Known Allergies*] Allergy (Verified 10/05/23 09:18) HPI EST/sharp pain left side HPI Details Patient is a 63-year-old female comes the walk-in clinic complaining of left upper quadrant abdominal discomfort radiating through the left flank to her left mid back area. She states that her symptoms seem to be aggravated when she has bowel movements, especially if they are hard, causing her to strain. She has tried to increase her fluid intake as she has a history of not drinking enough water and her GI specialist discussed this with her. Recent colonoscopy was unremarkable per patient. She has a history of gastric inflammation, abdominal cramping, diverticulosis as well as rectal bleeding, and chronic GERD which she does not complain of associated symptoms today. She denies fever or chills, nausea vomiting or diarrhea, pelvic or bladder area pain, gross blood in the urine, urinary frequency or incomplete voiding, myalgias or malaise, anorexia, or other significant associated symptoms. Reviewed past medical history with the patient [facility] Medical History History of COVID-19 Endocervical polyp GERD (gastroesophageal reflux disease) Arthritis of right wrist Scoliosis Hx of migraines History of iron deficiency anemia Toe infection Surgical History Hx of esophagogastroduodenoscopy Hx of colonoscopy History of tonsillectomy Family History Father Diabetes mellitus Stomach cancer Mother HTN (hypertension) Afib Heart failure Maternal Grandfather CVD (cardiovascular disease) Maternal Grandmother Leukemia Paternal Grandfather Cancer Paternal Grandmother No problems noted. Brother No problems noted. Brother No problems noted. Brother No problems noted. Brother No problems noted. Brother No problems noted. Sister No problems noted. Sister No problems noted. Sister No problems noted. Household Members: None Housing: Condominium Alcohol intake: never Patient Tobacco Use Status: Never used Tobacco e-Cigarette/Vaping Use: Never Used Current occupational status: unemployed Sexual orientation: Straight/Heterosexual Gender identity: Female Cognitive needs: No Hearing needs: No Vision needs: No Review of Systems Const All systems reviewed & are unremarkable except as noted in HPI and below Physical Exam Vital Signs: Last Vital Signs Temp 97.8 F 10/05/23 09:18 Pulse 68 10/05/23 09:18 BP 100/70 10/05/23 09:18 Pulse Ox 100 10/05/23 09:18 Oxygen Delivery Method Room Air 10/05/23 09:18 Const General: cooperative, healthy appearing, comfortable, no acute distress, alert, awake, Physically active and well groomed; No anxious, diaphoretic, ill appearing, intoxicated appearing, poor hygiene or tired appearing Nutritional Appearance: average body habitus Limitations: no limitations Resp Effort & Inspection: normal respiratory effort, able to speak in complete sentences, no audible wheezes, no cough, no grunting, not labored, no nasal flaring, no retractions and symmetric chest movement Auscultation: clear to auscultation bilaterally, no crackles, no rales, no rhonchi, no wheezes, lung sounds not diminished and No rub present Cardio Rate: regular rate Rhythm: regular rhythm GI Inspection: Yes normal to inspection, No Abdominal wall edema, No distended, No incision, No Abdominal panniculus present and No obesity Palpation (GI): Soft to palpation, not firm, Tenderness to palpation present (GI) (LUQ), no guarding, not rigid, No hepatosplenomegaly present, no masses and No Rebound tenderness present General: Yes CVA tenderness on the left; not on the right Back/Spine/Pelvis Back: CVA tenderness Skin Other: Good color, warm and dry Psych Appearance: grossly normal Mental Status: mental status grossly normal Speech and movement: Normal speech and movement present Affect: normal affect Attitude: cooperative Thought process: Normal thought process present Insight: Good insight present (Psych) Judgement: Good judgement present (Psych) Results AMB Urinalysis, Automated UA Leukoctes Nadia/uL Last Edit by Ta Monet CMA on 10/05/23 09:54 UA Nitrite Negative Last Edit by Ta Monet CMA on 10/05/23 09:54 UA Urobilinogen 0.2 mg/dL Last Edit by Ta Monet CMA on 10/05/23 09:54 UA Protein 15 mg/dL Last Edit by Ta Monet CMA on 10/05/23 09:54 UA pH 6.0 Last Edit by Ta Monet CMA on 10/05/23 09:54 UA Blood 80 Iván/uL Last Edit by Ta Monet CMA on 10/05/23 09:54 UA Specific [place] 1.030 Last Edit by Ta Monet CMA on 10/05/23 09:54 UA Ketone Positive Last Edit by Ta Monet CMA on 10/05/23 09:54 UA Bilirubin 1 mg/dL Last Edit by Ta Monet CMA on 10/05/23 09:54 UA Glucose mg/dL Last Edit by Ta Monet CMA on 10/05/23 09:54 Results Reviewed Results Reviewed: Laboratory Last Values Urine pH (Auto) 6.0 10/05/23 09:53 Specific [place] (Auto) 1.030 10/05/23 09:53 Urine Protein (Auto) 15 mg/dL 10/05/23 09:53 Urine Ketones (Auto) Positive 10/05/23 09:53 Urine Blood (Auto) 80 Iván/uL 10/05/23 09:53 Urine Nitrite (Auto) Negative 10/05/23 09:53 Urine Bilirubin (Auto) 1 mg/dL 10/05/23 09:53 Urine Urobilinogen (Auto) 0.2 mg/dL 10/05/23 09:53 Positive ketones, protein and blood in the urine Assessment & Plan Assessment & Plan (1) Abdominal pain: Code(s): R10.9 - Unspecified abdominal pain Qualifiers: Abdominal location: generalized Qualified Code(s): R10.84 - Generalized abdominal pain Plan: Patient with a few days of mild left upper quadrant abdominal discomfort radiating to the posteriorly to the left costovertebral angle area. Questionable for kidney stones versus pyelonephritis. Urine was positive for protein, blood and ketones. We discussed adequate hydration and I will write her for an antibiotic to cover a possible upper UTI. Urine pending microscopy a nd susceptibility testing. 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 She should go to the emergency department for worrisome symptoms Orders: Orders UA CC w/rflx Micro + Cult 10/05/23 R30.0 - Dysuria AMB Urinalysis Automated 10/05/23 M54.50 - Low back pain, unspecified Basic Metabolic Panel 10/05/23 R10.9 - Unspecified abdominal pain Complete Blood Count Auto Diff 10/05/23 R10.9 - Unspecified abdominal pain Medications: New ciprofloxacin HCl 500 mg PO BID 5 days 10 tabs 0RF Coding Level of Care Code Est Pt Level 4 (79293) Diagnoses Generalized abdominal pain R10.84 Abdominal location: generalized
[2023-10-05 09:18] VITALS: BP 100/70; PULSE 68; TEMP 36.6; O2SAT 100
== END 2023-10-05 10:14 | disposition home or self-care (01) ==
PROVIDERS: PCP Internal Medicine; Visit Provider Physician Assistant Medical
DX: R10.84 Generalized abdominal pain (principal)
CPT/HCPCS: 99051; 99214

== ENCOUNTER 2023-10-05 10:08 | Outpatient (REF) | payer OTHER, SELFPAY ==
[2023-10-05 11:07] LABS: MANUAL DIFF FLAG NO
[2023-10-05 11:14] LABS: Basophils Percent Auto 0.5 % (0-2); Eosinophils Percent Auto 0.5 % (0-4); Hematocrit 39.9 % (37.0-47.0); Hemoglobin 13.3 g/dl (12.0-16.0); Imm Gran Abs Auto 0.01 X10*3/uL (0.00-0.03); Imm Gran Pct Auto 0.2 % (0.0-0.4); Lymphocytes Absolute Auto 1.6 X10*3/uL (1.2-4.9); Lymphocytes Percent Auto 26.4 % (20-40); Mean Corpuscular HGB Conc 33.3 g/dl (31.0-35.0); Mean Corpuscular Hemoglobin 31.1 pg (27.0-33.0); Mean Corpuscular Volume 93.2 fL (80.0-98.0); Mean Platelet Volume 9.7 fL (9.4-12.3); Monocytes Absolute Auto 0.4 X10*3/uL (0.1-1.2); Monocytes Percent Auto 6.5 % (2-11); Neutrophils Absolute Auto 4.1 x10*3/uL (2.0-8.3); Neutrophils Percent Auto 65.9 % (45-73); Platelet Count 320 X10*3/uL (160-400); Red Blood Count 4.28 X10*6/uL (4.20-5.50); Red Cell Distribution Width 12.3 % (11.0-16.0); White Blood Count 6.1 X10*3/uL (4.8-10.8)
[2023-10-05 11:41] LABS: Anion Gap 11 (12-20); Blood Urea Nitrogen 24 mg/dL (9-16); Calcium 9.7 mg/dL (8.4-10.2); Carbon Dioxide 27 mmol/L (22-29); Chloride 107 mmol/L (96-108); Estimated Glomerular Filt Rate > 60; Glucose Random 89 mg/dL (60-115); Potassium 3.8 mmol/L (3.3-5.1); Sodium 141 mmol/L (135-145)
== END 2023-10-05 10:09 | disposition home or self-care (01) ==
LOC: HO.HMGCLDS 10:08
PROVIDERS: PCP Internal Medicine; Visit Provider Physician Assistant Medical
DX: R10.9 Unspecified abdominal pain (principal)
CPT/HCPCS: 36415; 80048; 85025

== ENCOUNTER 2023-10-05 10:15 | Outpatient (REF) | payer OTHER, SELFPAY ==
[2023-10-05 11:36] LABS: Appearance Urine Clear; Color Urine Yellow; Glucose Urine UA Negative (Negative); Leukocyte Esterase Urine Negative (Negative); Nitrite Urine Negative (Negative); Specific Gravity - Urine >= 1.030 (1.005-1.025); UMIC TRIGGER UACC YES; Urine Blood Trace (Negative); Urine Ketones Trace mg/dL (Negative); Urine Protein Negative (Neg-Trace)
[2023-10-05 11:43] LABS: Bacteria Urine None Seen (None Seen); WBC Urine 0-5 /HPF (0-5)
== END 2023-10-05 10:16 | disposition home or self-care (01) ==
LOC: HO.LAB 10:15
PROVIDERS: Visit Provider Physician Assistant Medical
DX: R30.0 Dysuria (principal)
CPT/HCPCS: 81001

== ENCOUNTER 2023-10-11 09:04 | Outpatient (AMB) | payer OTHER, SELFPAY ==
--- NOTE | 2023-10-11 09:09 | AM.OFFWIN_ITS ---
Intake Vital Signs 10/11/23 09:10 Height 5 ft 6 in Weight 120 lb BMI 19.4 BP 122/70 Blood Pressure Location Lt brachial Position Sitting Pulse 74 Pulse Source Pulse Oximeter Temp 97.8 F Temp Source Temporal Artery Scan Pulse Oximetry (%) 98 Intake Visit Reasons: EP Cramping/Seen last Sat/given meds Intake Note: pt is here for c/o cramping and completed antibiotics but states its back Patient Tobacco Use Status: Never used Tobacco Allergies No Known Allergies [No Known Allergies*] Allergy (Verified 10/11/23 09:11) Medication List - Last Reconciled 10/11/23 by Brittany Colvin PA-C acetaminophen 500 mg PO Q6H PRN methocarbamol 500 mg PO TID PRN Do you need a note to return to daycare/school/sports/work: Yes HPI HPI Comments History of Present Illness Details Patient is a 63-year-old female with history hemrrhoids and diverticulosis Presents here for cramping to the abdomen left-sided flank Seen Saturday in office and give medicine; patient had workup for left flank pain including urinalysis CBC and CMP Urinalysis for known for blood and protein at that time and patient treated with ciprofloxacin Patient take antibiotic completely as prescribed without resolution of her symptoms Ongoing x 2 weeks Starts in middle of abdomen and wraps around L side Feels soreness under L rib Constant cramping Pain level 7/10 + constiation. last BM this am without b lood or melena Admits to chronic urinary frequency without dysuria, frequency, urgency hematuria Took laxative which helped No vomiting, fever. Subjective chills No SP, SOB, palpations No cough or congestion PFSH Medical History (Updated 10/11/23 @ 10:39 by Brittany Colvin PA-C) Left flank pain History of COVID-19 Endocervical polyp GERD (gastroesophageal reflux disease) Arthritis of right wrist Scoliosis Hx of migraines History of iron deficiency anemia Toe infection Surgical History Hx of esophagogastroduodenoscopy Hx of colonoscopy History of tonsillectomy Family History Father Diabetes mellitus Stomach cancer Mother HTN (hypertension) Afib Heart failure Maternal Grandfather CVD (cardiovascular disease) Maternal Grandmother Leukemia Paternal Grandfather Cancer Paternal Grandmother No problems noted. Brother No problems noted. Brother No problems noted. Brother No problems noted. Brother No problems noted. Brother No problems noted. Sister No problems noted. Sister No problems noted. Sister No problems noted. Household Members: None Housing: Condominium Alcohol intake: never Patient Tobacco Use Status: Never used Tobacco e-Cigarette/Vaping Use: Never Used Current occupational status: unemployed Sexual orientation: Straight/Heterosexual Gender identity: Female Cognitive needs: No Hearing needs: No Vision needs: No Review of Systems Const Denies chills, Denies fever(s) and Denies headache(s) ENT Denies dizziness, Denies headache(s), Denies nasal discharge, Denies odynophagia, Denies sinus pressure and Denies sore throat Card Denies chest pain at rest, Denies chest pain with activity, Denies rapid heart rate, Denies irregular heart rhythm and Denies dyspnea Resp Denies cough, Denies hemoptysis, Denies pain on inspiration and Denies dyspnea GI Reports abdominal pain, Denies melena, Denies hematochezia, Denies coffee ground emesis, Reports constipation, Denies fecal incontinence, Denies diarrhea, Denies nausea, Denies odynophagia and Denies vomiting Denies hematuria, Denies difficulty voiding, Denies dysuria and Reports urinary urgency Musc Denies abnormal gait and Reports myalgias (abdomen and left flank) Skin/Breast Denies rash Neuro Denies abnormal gait, Denies dizziness and Denies headache(s) Psych Denies change in appetite Physical Exam Vital Signs: Last Vital Signs Temp 97.8 F 10/11/23 09:10 Pulse 74 10/11/23 09:10 BP 122/70 10/11/23 09:10 Pulse Ox 98 10/11/23 09:10 BMI result Body Mass Index 19.4 General: Non-toxic, NAD. Speaking full sentences. Skin: Warm dry throughout. No posterior back or flank ecchymosis or vesicular rash Eye: PERRL, EOMI HENT: Airway patent. Uvula midline. No pharyngeal erythema or edema. No DRY PAN FEEDER. Bilateral canals clear. TM non-erythematous, non-bulging. No TM perforation or hemotympanum noted. Respiratory: CTA bilaterally. No wheezes, rales or rhonchi Cardiac: RRR. No murmur Abdominal: BS present. No palpable spleen or L kidney. Minimal L CVAT on exam. No R sided noted. Minimal tenderness to palpation L flank. Non-tender RUQ, RLQ, LLQ. No palpable masses. No abdominal distention or pusatile mass. MSK: No midline tenderness. Full ROM extremities. Neurology: A/O x 3. No aphasia or facial droop. Equal strength. Gait without abnormality Psych: Good mood and affect Results AMB Urinalysis, Automated UA Leukoctes 0 Nadia/uL Last Edit by Mark Lassiter CMA on 10/11/23 10:03 UA Nitrite Negative Last Edit by Mark Lassiter CMA on 10/11/23 10:03 UA Urobilinogen 0.2 mg/dL Last Edit by Mark Lassiter CMA on 10/11/23 10 :03 UA Protein 30 mg/dL Last Edit by Mark Lassiter CMA on 10/11/23 10:03 UA pH 6.0 Last Edit by Mark Lassiter CMA on 10/11/23 10:03 UA Blood 80 Iván/uL Last Edit by Mark Lassiter CMA on 10/11/23 10:03 UA Specific [place] 1.030 Last Edit by Mark Lassiter CMA on 10/11/23 10:03 UA Ketone Negative Last Edit by Mark Lassiter CMA on 10/11/23 10:03 UA Bilirubin 0 mg/dL Last Edit by Mark Lassiter CMA on 10/11/23 10:03 UA Glucose 0 mg/dL Last Edit by Mark Lassiter CMA on 10/11/23 10:03 Results Reviewed Results Reviewed: CBC, CMP and Urinalysis reviewed from last visit with Pt. Slight elevated BUN. No leuks noted on u/a Repeat U/a: + protein and blood. No leuks or concern infection. Assessment & Plan Assessment & Plan (1) Left flank pain: Code(s): R10.9 - Unspecified abdominal pain (2) Hematuria: Code(s): R31.9 - Hematuria, unspecified Qualifiers: Hematuria type: other microscopic Qualified Code(s): R31.29 - Other microscopic hematuria (3) Proteinuria: Code(s): R80.9 - Proteinuria, unspecified Qualifiers: Proteinuria type: persistent Qualified Code(s): R80.1 - Persistent proteinuria, unspecified Plan Patient seen and evaluated. Vital signs are stable. Patient is nontoxic appearing abdomen is nonacute at this time. Urinalysis reveals continual protein and blood in urine. Patient has no associated urinary symptoms aside from chronic urine urgency. She completed antibiotic course in full without change in her symptoms. I discussed the differential with the patient that this is less likely diverticulitis/diverticulosis secondary to no fever, chronic symptoms x2 weeks and no history of diverticulitis in the past. We discussed that this most likely is a retained stone. I discussed with patient that she has increased fluids and was given muscle relaxant for the pain. 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 Patient is aware and expressed verbal understanding. She is aware that any onset of fever, chills worsening pain then she needs to report immediately to the emergency department for further evaluation and management/imaging. Patient will call to make an appointment with her primary care from Saturday and she is aware that she would benefit for further imaging. Discussed your protocol for worsening pain, urinary retention, fever, chest pain, shortness of breath and other worsening symptoms. Orders: Orders AMB Urinalysis Automated Today Z13.9 - Encounter for screening, unspecified Medications: New methocarbamol 500 mg PO TID PRN 14 tabs 0RF cramping R10.9 - Unspecified abdominal pain Coding Level of Care Code Est Pt Level 3 (94451) Diagnoses Left flank pain R10.9 Other microscopic hematuria R31.29 Hematuria type: other microscopic Persistent proteinuria R80.1 Proteinuria type: persistent
[2023-10-11 09:10] VITALS: BP 122/70; PULSE 74; TEMP 36.6; O2SAT 98; BMI 19.4
== END 2023-10-11 10:08 | disposition home or self-care (01) ==
PROVIDERS: PCP Internal Medicine; Visit Provider Physician Assistant
DX: R10.9 Unspecified abdominal pain (principal); R31.29 Other microscopic hematuria; R80.1 Persistent proteinuria, unspecified
CPT/HCPCS: 81003; 99213

== ENCOUNTER 2023-10-23 09:09 | Outpatient (AMB) | payer OTHER, SELFPAY ==
--- NOTE | 2023-10-23 09:27 | MHC.OFFWIV ---
Intake Vital Signs 10/23/23 09:28 Height 5 ft 6 in Weight 54.431 kg BMI 19.4 BP 122/70 Blood Pressure Location Rt brachial Position Sitting Pulse 74 Pulse Source Pulse Oximeter Temp 97.8 F Temp Source Temporal Artery Scan Pulse Oximetry (%) 97 Intake Visit Reasons: EP, abdominal pain Intake Note: pt is here for c/o abd pain due to eating yogurt Patient Tobacco Use Status: Never used Tobacco Allergies No Known Allergies [No Known Allergies*] Allergy (Verified 10/23/23 09:29) Do you need a note to return to daycare/school/sports/work: Yes HPI HPI Comments History of Present Illness Details [id number] 63-year-old female history of dysphagia, altered bowel habits, presenting to the clinic for evaluation of left lower quadrant pain that radiates to her flank with associated nausea, presyncopal episodes, diarrhea are ongoing for the past few days worsening. Patient reports she is currently being treated for a kidney stone however she does not think she has a kidney stone. Denies chest pain, shortness of breath, fevers, chills, vomiting. No blood in stool. Physical examination with left lower quadrant tenderness to palpation with some rebound, patient holding her abdomen in telling me she is uncomfortable concerns for possible diverticulitis versus viral illness versus gastroenteritis versus kidney stone versus obstructing uropathy. Unlikely acute abdomen. Patient to go to the emergency department at [place]. called in momo Vidal RN [facility] Medical History Left flank pain History of COVID-19 Endocervical polyp GERD (gastroesophageal reflux disease) Arthritis of right wrist Scoliosis Hx of migraines History of iron deficiency anemia Toe infection Surgical History Hx of esophagogastroduodenoscopy Hx of colonoscopy History of tonsillectomy Family History Father Diabetes mellitus Stomach cancer Mother HTN (hypertension) Afib Heart failure Maternal Grandfather CVD (cardiovascular disease) Maternal Grandmother Leukemia Paternal Grandfather Cancer Paternal Grandmother No problems noted. Brother No problems noted. Brother No problems noted. Brother No problems noted. Brother No problems noted. Brother No problems noted. Sister No problems noted. Sister No problems noted. Sister No problems noted. Social History Household Members: None Housing: Condominium Alcohol intake: never Patient Tobacco Use Status: Never used Tobacco e-Cigarette/Vaping Use: Never Used Current occupational status: unemployed Sexual orientation: Straight/Heterosexual Gender identity: Female Cognitive needs: No Hearing needs: No Vision needs: No Review of Systems Const Details: Constitutional : No Weight loss, No Fever, No Chills, No Fatigue, No Malaise ENT/Mouth : No sore throat, No Rhinorrhea Eyes: No Eye Pain, No Swelling, No Redness Cardiovascular : No Chest Pain, No SOB, No Dyspnea on Exertion, No Orthopnea, No Edema, No Palpitations Respiratory : No Cough, No Sputum, No Wheezing Gastrointestinal : No Nausea, No Vomiting, No Diarrhea, No Constipation, + abdominal Pain, No Hematochezia, No Melena Genitourinary : No Dysuria, No Urinary Frequency, No Hematuria, Musculoskeletal : No joint pain, No Myalgias, No Joint Swelling Skin : No Skin Lesions, No rash Neuro : No Weakness, No Numbness, No Dizziness, No Headache Psych : No Anxiety/Panic, No Depression All other systems reviewed and are negative All systems reviewed & are unremarkable except as noted in HPI and below Physical Exam Vital Signs: Last Vital Signs Temp 97.8 F 10/23/23 09:28 Pulse 74 10/23/23 09:28 BP 122/70 10/23/23 09:28 Pulse Ox 97 10/23/23 09:28 BMI result Body Mass Index 19.4 vss Appearance: Alert.? Oriented X3.? No acute distress.? Appears uncomfortable however. Head: Normocephalic, atraumatic, no step-offs or deformities Eyes: Pupils equal, round and reactive to light.? ENT: Pharynx normal.? Neck: Normal inspection.? Neck supple.? CVS: Pulses normal.? Respiratory: No respiratory distress Abdomen: Soft and left lower quadrant tenderness to palpation with some rebound, patient holding her abdomen in telling me she is uncomfortable.? Skin: Skin warm and dry.? Normal skin color.? Normal skin turgor.? Extremities: No lower extremity edema.? No calf ttp. 5/5 strength to bilateral upper and lower extremities Neuro: Oriented X 3.? No motor deficit.? No sensory deficit. CN 2-12 intact Assessment & Plan Assessment & Plan (1) LLQ pain: Code(s): R10.32 - Left lower quadrant pain Plan Take your medications as prescribed. If you were prescribed antibiotics today, it is important that you take your medication to their entirety, do not skip any doses, do not finish them early. Follow-up with your primary care provider this week. Return to the emergency department with new or worsening symptoms. In case of emergency call 911 Coding Level of Care Code Est Pt Level 3 (38730) Diagnoses LLQ pain R10.32
[2023-10-23 09:28] VITALS: BP 122/70; PULSE 74; TEMP 36.6; O2SAT 97; BMI 19.4
== END 2023-10-23 10:43 | disposition home or self-care (01) ==
PROVIDERS: PCP Internal Medicine; Visit Provider Physician Assistant
DX: R10.32 Left lower quadrant pain (principal)
CPT/HCPCS: 99213

== ENCOUNTER 2023-10-23 10:10 | Emergency (ER) | payer OTHER, SELFPAY ==
--- NOTE | ~2023-10-23 | CT_ITS ---
EXAMINATION: CT ABDOMEN AND PELVIS WITHOUT CONTRAST CLINICAL INFORMATION: Left-sided flank pain COMPARISON: Renal ultrasound January 09, 2019 TECHNIQUE: Multidetector volumetric imaging was performed from the superior aspect of the liver through the pubic symphysis. Sagittal and coronal reformatted images were obtained on the technologist's workstation. This CT examination was performed using dose optimization techniques as appropriate, variously including the following: *Automated exposure control *Adjustment of mA and/or kV according to patient size (this includes techniques or standardized protocols for targeted exams where dose is matched to indication/reason for exam; i.e. extremities or head) *Use of iterative reconstruction technique DLP: 308 mGy-cm FINDINGS: Visualized lung bases demonstrate mild atelectasis within the lingula and dependently within the left lung base. The liver is enlarged. The gallbladder is normal in appearance. There is mild fatty atrophy of the pancreas. The spleen and adrenal glands are unremarkable. Symmetrically sized kidneys. No renal calculi or hydronephrosis of either kidney. Some ill-defined cystic and calcific changes are noted along the lateral midpole the left kidney, nonspecific. Normal caliber loops of small and large bowel. Mild colonic stool burden. Mild colonic diverticulosis without CT evidence to suggest active diverticulitis. Normal appendix. Normal caliber abdominal aorta. No retroperitoneal lymphadenopathy. The bladder is decompressed and therefore not accurately evaluated. Unremarkable CT appearance of the uterus. No gross free pelvic fluid. No inguinal lymphadenopathy. Severe levoscoliosis of the lumbar spine with associated mild to moderate degenerative changes. CT/CT abdomen pelvis wo IV con IMPRESSION: 1. No renal calculi or hydronephrosis of either kidney. 2. Some ill-defined cystic and calcific changes are noted along the lateral midpole of the left kidney. This is a nonspecific finding but may represent a decompressed cyst or post procedural changes. Clinical correlation is recommended. Renal ultrasound can be obtained for further evaluation as clinically indicated. 3. Mild colonic diverticulosis without CT evidence to suggest active diverticulitis. Fleischner guidelines were followed.
[2023-10-23 11:37] VITALS: BP 131/78; PULSE 84; RESP 18; TEMP 36.6; O2SAT 99; BMI 20.4
--- NOTE | 2023-10-23 11:42 | ED.ABDPAIN ---
HPI - Abdominal Pain General Chief Complaint: Abdominal Pain Stated Complaint: Diverticulosis Time Seen by Provider: 10/23/23 15:39 Source: patient and old records reviewed Mode of arrival: ambulatory Limitations: no limitations History of Present Illness HPI narrative: A 63-year-old female came in for evaluation of abdominal pain. Patient's symptoms started 3 weeks ago was seen by urgent care 2 weeks ago for presuming left kidney stone, pain is on the left lower quadrant area of the abdomen radiates to the left flank area pain is associated with nausea and loose stool bowel movement last bowel movement was this morning, passing gas as normally, no dysuria, no frequency urination, no vaginal discharge or bleeding. No fever, no chills. No history of intra-abdominal surgery. Related Data Home Medications Medication Instructions Recorded Confirmed acetaminophen 500 mg tablet 500 mg PO Q6H PRN Pain, Moderate 05/18/21 10/11/23 Previous Rx's Medication Instructions Recorded methocarbamol 500 mg tablet 500 mg PO TID PRN cramping #14 tabs 10/11/23 cefuroxime axetil 250 mg tablet 250 mg PO BID #14 tabs 10/23/23 Allergies Allergy/AdvReac Type Severity Reaction Status Date / Time No Known Allergies Allergy Verified 10/23/23 11:37 [No Known Allergies*] Review of Systems Review of Systems All other systems are reviewed and are negative Constitutional: Reports as per HPI and Reports no additional constitutional complaints Eyes: Reports as per HPI and Reports no additional eye complaints Reports system reviewed and no additional complaints, except as documented Cardiovascular: Reports as per HPI and Reports no additional cardiovascular complaints Respiratory: Reports as per HPI and Reports no additional respiratory complaints Gastrointestinal: Reports as per HPI and Reports no additional gastrointestinal complaints Genitourinary: Reports no additional female genitourinary complaints Musculoskeletal: Reports no additional musculoskeletal complaints Skin/Breast: Reports system reviewed and no additional complaints, except as docu Psychiatric: Reports no additional psychiatric complaints Endocrine: Reports no additional endocrine complaints Hematologic/Lymphatic: Reports no additional hematologic/lymphatic complaints Allergic/Immunologic: Reports no additional allergic/immunologic complaints Reports system reviewed and no additional complaints, except as documented and Reports Abnormal speech present [facility] Past Medical History Medical History Left flank pain History of COVID-19 Endocervical polyp GERD (gastroesophageal reflux disease) Arthritis of right wrist Scoliosis Hx of migraines History of iron deficiency anemia Toe infection Surgical History Hx of esophagogastroduodenoscopy Hx of colonoscopy History of tonsillectomy Family History Family History Father Diabetes mellitus Stomach cancer Mother HTN (hypertension) Afib Heart failure Maternal Grandfather CVD (cardiovascular disease) Maternal Grandmother Leukemia Paternal Grandfather Cancer Paternal Grandmother No problems noted. Brother No problems noted. Brother No problems noted. Brother No problems noted. Brother No problems noted. Brother No problems noted. Sister No problems noted. Sister No problems noted. Sister No problems noted. Social History Social History Household Members: None Housing: Condominium Alcohol intake: never Patient Tobacco Use Status: Never used Tobacco Smoked in Last 30 Days: No e-Cigarette/Vaping Use: Never Used Use of substances other than those prescribed or required for medical reasons: No Advance Directives: No Advance Directives Information Provided: Yes Current occupational status: unemployed Sexual orientation: Straight/Heterosexual Gender identity: Female Cognitive needs: No Hearing needs: No Vision needs: No Physical Exam ED Vital Signs: Vital Signs - 24 hr 10/23/23 11:37 10/23/23 15:11 Temperature 98 F 98.5 F Pulse Rate 84 76 Respiratory Rate 18 16 Blood Pressure 131/78 151/90 H Pulse Oximetry 99 96 Oxygen Delivery Method Room Air Room Air BMI result Body Mass Index 20.4 Vital signs have been reviewed and appear to be correct. Blood pressure elevated. Heart rate normal. Respiratory rate normal. Temperature normal. Oxygen saturation normal. Appearance: Alert. Oriented X3. No acute distress. Head: Normal external exam. Normocephalic. Atraumatic. No Kim signs noted. No raccoon eyes noted Eyes: PERRLA. EOMI. Conjunctiva and sclera normal. Eyelids normal. ENT: TM's Normal. Pharynx normal. Uvula midline. Moist mucous membranes. No trismus noted. No drooling noted. No muffled voice noted. Neck: Normal inspection. Neck supple. FROM. No adenopathy. Thyroid Normal. No meningeal signs. No neck mass noted. CVS: Normal heart rate and rhythm. Heart sound normal. No murmurs noted. Pulses normal throughout. Respiratory: No respiratory distress. Painless inspiration. Breath sounds normal. No wheezes/rales/rhonchi noted. Chest nontender. No accessory muscle usage noted or decreased air movement noted. Abdomen: Soft and nontender. Bowel sounds normal in all 4 quadrants. No distention noted. No organomegaly noted. No visible injury noted. Back: No CVA tenderness. Full range of motion noted. Skin: Skin warm and dry. Normal skin color. Normal skin turgor. No rashes/lesions/lacerations noted. Extremities: No lower extremity edema. Extremities exhibit normal range of motion. Extremities nontender. Neuro: Oriented X 3. Cranial nerve exam: II-XII are grossly intact No motor deficit. No sensory deficit. Reflexes normal. Course Course Course Narrative: This is an RME: Additional HPI, ROS, PE not included below will be deferred to primary provider. This is a 63-year-old female, with a hx of left flank pain, dysphagia, presenting to the clinic for evaluation of left lower quadrant pain that radiates to her flank with associated nausea, diarrhea are ongoing for the past few days worsening. Plan: Labs, UA, CT abd Reevaluation(s) Reevaluation #1: 63-year-old female presented with 3 weeks history of LLQ pain, no UTI symptoms however patient is showing a mild UTI in the UA will start the patient on cefuroxime and encouraged to drink plenty of fluid, patient also will follow-up with PCP and get a GI referral for further evaluation of 3 weeks abdominal pain with no obvious etiology on the CT or the blood workup today. Time: 16:15 Medical Decision Making Differential Diagnosis Differential Diagnoses: The differential diagnosis associated with the presentation includes (Diverticulitis, colitis, left kidney stone, pyelonephritis, UTI, severe anemia, electrolyte abnormality, muscular pain.) Admission/Observation Consideration of admission/observation: Escalation of care including admission/observation considered Lab Data MDM Lab Attestation statement: I reviewed the patient's lab results. 10/23/23 13:48 10/23/23 13:48 Labs: Lab Results 10/23/23 10/23/23 Range/Units 13:48 15:51 WBC 6.9 (4.8-10.8) X10*3/uL RBC 4.66 (4.20-5.50) X10*6/uL Hgb 14.2 (12.0-16.0) g/dl Hct 42.6 (37.0-47.0) % MCV 91.4 (80.0-98.0) fL MCH 30.5 (27.0-33.0) pg MCHC 33.3 (31.0-35.0) g/dl RDW 11.9 (11.0-16.0) % Plt Count 272 (160-400) X10*3/uL MPV 9.3 L (9.4-12.3) fL Immature Gran % (Auto) 0.1 (0.0-0.4) % Neut % (Auto) 62.8 (45-73) % Lymph % (Auto) 29.7 (20-40) % [place] % (Auto) 6.4 (2-11) % Eos % (Auto) 0.6 (0-4) % Baso % (Auto) 0.4 (0-2) % Lymph # (Auto) 2.0 (1.2-4.9) X10*3/uL [place] # (Auto) 0.4 (0.1-1.2) X10*3/uL Eos # (Auto) 0.0 (0.0-0.4) X10*3/uL Baso # (Auto) 0.0 (0.0-0.2) X10*3/uL Abs Immat Gran (auto) 0.01 (0.00-0.03) X10*3/uL Absolute Neuts (auto) 4.3 (2.0-8.3) x10*3/uL Absolute Nucleated RBC 0.000 (0.0-0.012) X10*3/uL Nucleated RBC % (auto) 0.0 (0.0-0.2) /100WBC Sodium 140 (135-145) mmol/L Potassium 4.2 (3.3-5.1) mmol/L Chloride 103 (96-108) mmol/L Carbon Dioxide 28 (22-29) mmol/L Anion Gap 13 (12-20) BUN 13 (9-16) mg/dL Creatinine 0.78 (0.5-1.4) mg/dL Estim Creat Clear Calc 66.5 Estimated GFR > 60 Random Glucose 93 (60-115) mg/dL Calcium 10.0 (8.4-10.2) mg/dL Total Bilirubin 0.7 (0.0-1.0) mg/dL Direct Bilirubin 0.2 (0.0-0.5) mg/dL AST 23 (5-31) U/L ALT 21 (0-31) U/L Alkaline Phosphatase 89 (39-117) U/L Total Protein 7.9 (6.5-8.0) g/dL Albumin 4.8 (3.5-5.0) g/dL Lipase 19 (8-78) U/L Urine Color Yellow Urine Appearance Clear Urine pH 8.0 (5.0-9.0) Ur Specific [place] 1.015 (1.005-1.025) Urine Protein Negative (Neg-Trace) mg/dL Urine Glucose (UA) Negative (Negative) mg/dL Urine Ketones Negative (Negative) mg/dL Urine Blood Trace H (Negative) Urine Nitrite Negative (Negative) Ur Leukocyte Esterase Small (1+) H (Negative) Urine RBC 6-10 H (0-2) /HPF Urine WBC 6-10 H (0-5) /HPF Ur Squamous Epith Cells 0-2 (0-2) /HPF Urine Bacteria None Seen (None Seen) Hyaline Casts 0-2 (0-2) /LPF Influenza Type A (PCR) NEGATIVE (Negative) Influenza Type B (PCR) NEGATIVE (Negative) RSV RNA Qual (PCR) NEGATIVE (Negative) SARS-CoV-2 RNA (RT-PCR) NEGATIVE (Negative) Independent Interpretation I performed an independent interpretation of an: CT Scan (Abdomen pelvis:1. No renal calculi or hydronephrosis of either kidney. 2. Some ill-defined cystic and calcific changes are noted along the lateral midpole of the left kidney. This is a nonspecific finding but may represent a decompressed cyst or post procedural changes. Clinical correlation is rec) Radiology Impression Discussion of test interpretation with radiology: I have reviewed the radiologist's reading. Discharge Plan Discharge Clinical Impression: Urinary tract infection Abdominal pain Qualifiers: Abdominal location: left lower quadrant Qualified Code(s): R10.32 - Left lower quadrant pain Patient Disposition: Home, Self-Care Instructions: Urinary Tract Infection in Older Adults (ED) Prescriptions: New cefuroxime axetil 250 mg tablet 250 mg PO BID Qty: 14 0RF No Action acetaminophen 500 mg Tablet 500 mg PO Q6H PRN (Reason: Pain, Moderate) methocarbamol 500 mg tablet 500 mg PO TID PRN (Reason: cramping) Qty: 14 0RF Referrals: Rosio Chandler MD [Primary Care Provider] -
[2023-10-23 13:51] LABS: MANUAL DIFF FLAG NO
[2023-10-23 13:55] LABS: Basophils Percent Auto 0.4 % (0-2); Eosinophils Percent Auto 0.6 % (0-4); Hematocrit 42.6 % (37.0-47.0); Hemoglobin 14.2 g/dl (12.0-16.0); Imm Gran Abs Auto 0.01 X10*3/uL (0.00-0.03); Imm Gran Pct Auto 0.1 % (0.0-0.4); Lymphocytes Percent Auto 29.7 % (20-40); Mean Corpuscular HGB Conc 33.3 g/dl (31.0-35.0); Mean Corpuscular Hemoglobin 30.5 pg (27.0-33.0); Mean Corpuscular Volume 91.4 fL (80.0-98.0); Mean Platelet Volume 9.3 fL (9.4-12.3); Monocytes Absolute Auto 0.4 X10*3/uL (0.1-1.2); Monocytes Percent Auto 6.4 % (2-11); Neutrophils Absolute Auto 4.3 x10*3/uL (2.0-8.3); Neutrophils Percent Auto 62.8 % (45-73); Platelet Count 272 X10*3/uL (160-400); Red Blood Count 4.66 X10*6/uL (4.20-5.50); Red Cell Distribution Width 11.9 % (11.0-16.0); White Blood Count 6.9 X10*3/uL (4.8-10.8)
[2023-10-23 14:09] LABS: Alanine Aminotransferase 21 U/L (0-31); Albumin Level 4.8 g/dL (3.5-5.0); Alkaline Phosphatase 89 U/L (39-117); Anion Gap 13 (12-20); Aspartate Amino Transferase 23 U/L (5-31); Bilirubin Direct 0.2 mg/dL (0.0-0.5); Bilirubin Total 0.7 mg/dL (0.0-1.0); Blood Urea Nitrogen 13 mg/dL (9-16); Carbon Dioxide 28 mmol/L (22-29); Chloride 103 mmol/L (96-108); Creatinine Clr Calc Pharmacy 66.5; Estimated Glomerular Filt Rate > 60; Glucose Random 93 mg/dL (60-115); Lipase 19 U/L (8-78); Potassium 4.2 mmol/L (3.3-5.1); Sodium 140 mmol/L (135-145); Total Protein 7.9 g/dL (6.5-8.0)
[2023-10-23 14:49] LABS: Influenza A PCR NEGATIVE (Negative); Influenza B PCR NEGATIVE (Negative); Resp Syncy Virus RNA Qual PCR NEGATIVE (Negative); SARS COV2 PCR INHOUSE NEGATIVE (Negative)
[2023-10-23 15:11] VITALS: BP 151/90; PULSE 76; RESP 16; TEMP 36.9; O2SAT 96
--- NOTE | 2023-10-23 15:13 | PC.NURSE ---
Patient brought back from waiting room, has hx of diverticulitis, reporting L abdominal pain and L flank pain that she rates 7/10. Denies any other complaints, no nausea or vomiting recently. Alert and oriented x4, skin pwd, respirations even and unlabored
[2023-10-23 16:01] LABS: Appearance Urine Clear; Color Urine Yellow; Glucose Urine UA Negative (Negative); Leukocyte Esterase Urine Small (1+) (Negative); Nitrite Urine Negative (Negative); Specific Gravity - Urine 1.015 (1.005-1.025); UMIC TRIGGER UACC YES; Urine Blood Trace (Negative); Urine Ketones Negative (Negative); Urine Protein Negative (Neg-Trace)
[2023-10-23 16:04] LABS: Bacteria Urine None Seen (None Seen); Hyaline Casts Urine 0-2 /LPF (0-2); Squamous Epithelial Cell Urine 0-2 /HPF (0-2); UACC Culture Trigger YES
[2023-10-23] MEDS: cefuroxime axetiL 250 MG TABLET PO (16:20)
== END 2023-10-23 16:31 | disposition home or self-care (01) ==
PROVIDERS: Physician Assistant Medical; Emergency Provider Emergency Medicine; PCP Internal Medicine
DX: N39.0 Urinary tract infection, site not specified (principal); R10.32 Left lower quadrant pain; Z20.822 Contact with and (suspected) exposure to COVID-19; Z20.828 Contact with and (suspected) exposure to other viral communicable diseases
CPT/HCPCS: 0241U; 74176; 80048; 80076; 81001; 81003; 83690; 85025; 87086; 99284

== ENCOUNTER 2023-10-26 09:04 | Outpatient (AMB) | payer OTHER, SELFPAY ==
[2023-10-26 09:06] VITALS: BP 130/64; PULSE 134; TEMP 37.4; O2SAT 99; BMI 20.1
--- NOTE | 2023-10-26 09:06 | AM.OFFWIN_ITS ---
Intake Vital Signs 10/26/23 09:06 Height 5 ft 5 in Weight 121 lb BMI 20.1 BP 130/64 Blood Pressure Location Rt brachial Position Sitting Pulse 134 H Pulse Source Pulse Oximeter Temp 99.4 F Temp Source Oral Pulse Oximetry (%) 99 Oxygen Delivery Method Room Air Intake Visit Reasons: EP, abdominal pain Intake Note: Pt is here today c/o abdominal pain x1week crampy Patient Tobacco Use Status: Never used Tobacco Allergies No Known Allergies [No Known Allergies*] Allergy (Verified 10/26/23 09:09) HPI HPI Comments History of Present Illness Details 63-year-old female history of diverticul osis that presents for cough congestion in abdominal pain. Patient was seen and evaluated on the 23 of October told she might have kidney stones and sent to the emergency department she received full workup evaluation including labs and CT scan which showed no results diagnosed with the UTI placed on antibiotics. Since leaving the emergency department she developed cough cold congestion. No new symptoms for the abdominal pain. Concerned that she has been exposed of COVID. Denies chest pain or shortness of breath PFSH Medical History Left flank pain History of COVID-19 Endocervical polyp GERD (gastroesophageal reflux disease) Arthritis of right wrist Scoliosis Hx of migraines History of iron deficiency anemia Toe infection Surgical History Hx of esophagogastroduodenoscopy Hx of colonoscopy History of tonsillectomy Family History Father Diabetes mellitus Stomach cancer Mother HTN (hypertension) Afib Heart failure Maternal Grandfather CVD (cardiovascular disease) Maternal Grandmother Leukemia Paternal Grandfather Cancer Paternal Grandmother No problems noted. Brother No problems noted. Brother No problems noted. Brother No problems noted. Brother No problems noted. Brother No problems noted. Sister No problems noted. Sister No problems noted. Sister No problems noted. Social History Household Members: None Housing: Condominium Alcohol intake: never Patient Tobacco Use Status: Never used Tobacco e-Cigarette/Vaping Use: Never Used Current occupational status: unemployed Sexual orientation: Straight/Heterosexual Gender identity: Female Cognitive needs: No Hearing needs: No Vision needs: No Review of Systems Resp Reports chest congestion and Reports cough GI Reports abdominal pain Physical Exam Vital Signs: Last Vital Signs Temp 99.4 F 10/26/23 09:06 Pulse 134 H 10/26/23 09:06 BP 130/64 10/26/23 09:06 Pulse Ox 99 10/26/23 09:06 Oxygen Delivery Method Room Air 10/26/23 09:06 BMI result Body Mass Index 20.1 Const General: cooperative, no acute distress and alert Orientation/consciousness: patient oriented x3 Limitations: no limitations HEENT Head: Yes normal to inspection Ears: hearing grossly normal bilaterally and external ears normal General nose exam: Normal external nose present Eyes General: appearance normal, both eyes and all related structures Neck Neck: Yes normal visual inspection Chest Chest palpation & inspection: normal inspection of the chest Resp Effort & Inspection: normal respiratory effort, able to speak in complete sentences and no audible wheezes Auscultation: clear to auscultation bilaterally Cardio Rate: regular rate Rhythm: regular rhythm GI Other: Mild left upper quadrant tenderness Inspection: Yes normal to inspection Palpation (GI): Soft to palpation Skin General skin exam: no rashes or lesions noted Neuro General: patient oriented x3 Psych Appearance: grossly normal Mental Status: mental status grossly normal Speech and movement: Normal speech and movement present Affect: normal affect Attitude: cooperative Thought process: Normal thought process present Thought content: Normal thought content present Assessment & Plan Assessment & Plan (1) URI (upper respiratory infection): Code(s): J06.9 - Acute upper respiratory infection, unspecified Qualifiers: URI type: unspecified viral URI Qualified Code(s): J06.9 - Acute upper respiratory infection, unspecified Plan: Vital signs notable for tachycardia and low-grade temperature. Discussed these findings with the patient of concerning consideration is diverticulitis versus pyelonephritis versus other acute abdominal pathology. Discussed the patient should proceed to the emergency department for evaluation patient is reluctant at this time. Patient requesting COVID test. COVID could explain patient's symptoms. In the absence of any new abdominal pain in the pain has been p ersistent for 3 weeks and only new symptoms or cough cold congestion with recent COVID exposure of this could be explain patient's symptoms. Will proceed with COVID test next door. Will notify patient results. Patient states that if COVID test is negative she will consider going to the emergency department.. Orders: Orders [facility] Covid-19 Ag Today J06.9 - Acute upper respiratory infection, unspecified Coding Level of Care Code Est Pt Level 3 (35048) Diagnoses Viral upper respiratory tract infection J06.9 URI type: unspecified viral URI
== END 2023-10-26 09:39 | disposition home or self-care (01) ==
PROVIDERS: PCP Internal Medicine; Visit Provider Physician Assistant
DX: J06.9 Acute upper respiratory infection, unspecified (principal)
CPT/HCPCS: 99051; 99213

== ENCOUNTER 2023-10-26 09:33 | Outpatient (REF) | payer OTHER, SELFPAY ==
[2023-10-26 11:54] LABS: Influenza A PCR NEGATIVE (Negative); Influenza B PCR NEGATIVE (Negative); Resp Syncy Virus RNA Qual PCR NEGATIVE (Negative); SARS COV2 PCR INHOUSE POSITIVE (Negative)
== END 2023-10-26 09:34 | disposition home or self-care (01) ==
LOC: HO.LAB 09:33
PROVIDERS: Visit Provider Physician Assistant
DX: J06.9 Acute upper respiratory infection, unspecified (principal); Z11.52 Encounter for screening for COVID-19
CPT/HCPCS: 0241U

== ENCOUNTER 2023-10-26 09:34 | Outpatient (REF) | payer OTHER, SELFPAY ==
[2023-10-26 09:51] LABS: Binax Internal Control QC Valid; Binax Now Covid-19 Ag Positive (Negative); Binax Performed by: HO.TORG
== END 2023-10-26 09:35 | disposition home or self-care (01) ==
LOC: HO.HMGCLDS 09:34
PROVIDERS: PCP Internal Medicine; Visit Provider Physician Assistant
DX: J06.9 Acute upper respiratory infection, unspecified (principal); Z11.52 Encounter for screening for COVID-19
CPT/HCPCS: 87811

== ENCOUNTER 2023-10-26 10:11 | Emergency (ER) | payer OTHER, SELFPAY ==
--- NOTE | ~2023-10-26 | XR_ITS ---
EXAMINATION: XR CHEST CLINICAL INFORMATION: Left chest and rib pain COMPARISON: Previous chest x-ray December 2018 TECHNIQUE: Frontal view of the chest was obtained. FINDINGS: The cardiac and mediastinal contours are stable. The lungs are clear. No pleural effusion or pneumothorax. Thoracolumbar scoliosis and degenerative change of the spine. XR/XR chest 1V IMPRESSION: No evidence for acute disease in the chest.
--- NOTE | 2023-10-26 10:16 | ECG_ITS ---
Test Reason : high heart rate Blood Pressure : / mmHG Vent. Rate : 098 BPM Atrial Rate : 098 BPM P-R Int : 122 ms QRS Dur : 066 ms QT Int : 324 ms P-R-T Axes : -17 -73 -08 degrees QTc Int : 413 ms Normal sinus rhythm Left axis deviation Anteroseptal infarct , age undetermined Abnormal ECG When compared with ECG of 13-APR-2022 08:16, Anteroseptal infarct is now Present ST now depressed in Lateral leads Nonspecific T wave abnormality now evident in Anterolateral leads Referred By: Generic ED Physician Electronically Signed By:ORA GARCIA
[2023-10-26 10:38] VITALS: BP 138/100; PULSE 107; RESP 18; TEMP 37.4; O2SAT 97; BMI 19.2
[2023-10-26 11:09] LABS: MANUAL DIFF FLAG NO
[2023-10-26 11:11] LABS: Basophils Percent Auto 0.4 % (0-2); Eosinophils Percent Auto 0.2 % (0-4); Hematocrit 42.9 % (37.0-47.0); Hemoglobin 14.1 g/dl (12.0-16.0); Imm Gran Abs Auto 0.02 X10*3/uL (0.00-0.03); Imm Gran Pct Auto 0.2 % (0.0-0.4); Lymphocytes Absolute Auto 0.6 X10*3/uL (1.2-4.9); Lymphocytes Percent Auto 7.8 % (20-40); Mean Corpuscular HGB Conc 32.9 g/dl (31.0-35.0); Mean Corpuscular Hemoglobin 30.1 pg (27.0-33.0); Mean Corpuscular Volume 91.7 fL (80.0-98.0); Monocytes Absolute Auto 0.9 X10*3/uL (0.1-1.2); Monocytes Percent Auto 11.2 % (2-11); Neutrophils Absolute Auto 6.5 x10*3/uL (2.0-8.3); Neutrophils Percent Auto 80.2 % (45-73); Platelet Count 253 X10*3/uL (160-400); Red Blood Count 4.68 X10*6/uL (4.20-5.50); White Blood Count 8.2 X10*3/uL (4.8-10.8)
[2023-10-26 11:25] LABS: Anion Gap 16 (12-20); Blood Urea Nitrogen 16 mg/dL (9-16); Calcium 9.8 mg/dL (8.4-10.2); Carbon Dioxide 24 mmol/L (22-29); Chloride 103 mmol/L (96-108); Creatinine Clr Calc Pharmacy 65.4; Estimated Glomerular Filt Rate > 60; Glucose Random 97 mg/dL (60-115); Magnesium 1.9 mg/dL (1.6-2.6); Potassium 3.7 mmol/L (3.3-5.1); Sodium 139 mmol/L (135-145)
[2023-10-26 11:33] LABS: Troponin-I High Sensitivity < 2.7 ng/L (<3.5-17.0)
--- NOTE | 2023-10-26 14:05 | ED_ITS ---
HPI - General Adult General Chief complaint: General Medical Stated complaint: rapid heart beat Time Seen by Provider: 10/26/23 14:04 Source: patient Mode of arrival: ambulatory Limitations: no limitations History of Present Illness HPI narrative: Patient is a 63 year old assigned female at with a history of diverticulosis and recent UTI, currently on antibiotics, presenting to the emergency department today with a rapid heart rate. Patient states that she was seen at an urgent care today, told that she had COVID-19, but because her heart rate was 104, she should come to the ER. Patient is on antibiotics for a UTI. Patient has no complaints at this time. Patient denies any dizziness, lightheadedness, abdominal pain, nausea, vomiting, fever, chills, blurry vision, double vision, loss of vision, chest pain, difficulty breathing, shortness of breath, back pain, night sweats, pain with urination, increased urinary frequency, increased urinary urgency, blood in his urine or stool, syncope or a near syncopal episode, recent trauma or falls, bowel incontinence, bladder incontinence, bowel retention, bladder retention, or any other complaints at this time. Relieving factors: none Exacerbating factors: none Associated symptoms: denies other symptoms Treatments prior to arrival: none Related Data Home Medications Medication Instructions Recorded Confirmed acetaminophen 500 mg tablet 500 mg PO Q6H PRN Pain, Moderate 05/18/21 10/11/23 Previous Rx's Medication Instructions Recorded methocarbamol 500 mg tablet 500 mg PO TID PRN cramping #14 tabs 10/11/23 cefuroxime axetil 250 mg tablet 250 mg PO BID #14 tabs 10/23/23 Allergies Allergy/AdvReac Type Severity Reaction Status Date / Time No Known Allergies Allergy Verified 10/26/23 09:09 [No Known Allergies*] Review of Systems 2 Constitutional: Constitutional: Reports no additional constitutional complaints, Denies chills, Denies fever(s) and Denies night sweats Eyes: Eyes: Reports no additional eye complaints, Denies blurry vision, Denies change in vision, Denies diplopia, Denies eye discharge, Denies loss of vision and Denies eye pain ENT: Denies dizziness Cardiovascular: Cardiovascular: Reports no additional cardiovascular complaints, Denies chest pain, Denies lightheadedness, Denies Loss of Consciousness and Denies dyspnea Respiratory: Respiratory: Reports no additional respiratory complaints and Denies dyspnea Gastrointestinal: Gastrointestinal: Reports no additional gastrointestinal complaints, Denies abdominal pain, Denies melena, Denies hematochezia, Denies change in bowel habits and Denies change in stool character Genitourinary: Genitourinary: Denies hematuria, Denies urinary frequency, Denies dysuria, Denies urinary incontinence, Denies urinary hesitancy and Denies urinary urgency Musculoskeletal: Musculoskeletal: Reports no additional musculoskeletal complaints, Denies numbness and Denies tingling Neurologic: Denies dizziness, Denies loss of vision, Denies numbness and Denies tingling Psychiatric: Psychiatric: Reports no additional psychiatric complaints Endocrine: Endocrine: Reports no additional endocrine complaints Hematologic/Lymphatic: Hematologic/Lymphatic: Reports no additional hematologic/lymphatic complaints Allergic/Immunologic: Allergic/Immunologic: Reports no additional allergic/immunologic complaints [facility] Past Medical History Attestation statement: The following information was validated with the patient. Source: old records reviewed and nursing notes reviewed Medical History URI (upper respiratory infection) Proteinuria Hematuria Left flank pain Excessive cerumen in right ear canal Infection of right ear Irritation of right eye Bleeding per rectum Blurring of vision Rash Postmenopausal bleeding Encounter to discuss test results COVID-19 virus infection Nasal congestion Headache Myalgia Abdominal cramping Underweight due to inadequate caloric intake Gastric inflammation Pain in right wrist Dysphagia Nausea Dysphagia Altered bowel habits Acid reflux Hard stool Abdominal pain Encounter for general adult medical examination with abnormal findings Postmenopausal vaginal bleeding Well woman exam with routine gynecological exam Ingrown toenail of left foot Toe infection Paronychia of great toe of left foot Paronychia of great toe of right foot Paronychia due to ingrown nail Paronychia History of COVID-19 Endocervical polyp GERD (gastroesophageal reflux disease) Arthritis of right wrist Scoliosis Hx of migraines History of iron deficiency anemia Surgical History Hx of esophagogastroduodenoscopy Hx of colonoscopy History of tonsillectomy Family History Family History Father Diabetes mellitus Stomach cancer Mother HTN (hypertension) Afib Heart failure Maternal Grandfather CVD (cardiovascular disease) Maternal Grandmother Leukemia Paternal Grandfather Cancer Paternal Grandmother No problems noted. Brother No problems noted. Brother No problems noted. Brother No problems noted. Brother No problems noted. Brother No problems noted. Sister No problems noted. Sister No problems noted. Sister No problems noted. Social History Social History Household Members: None Housing: Condominium Alcohol intake: never Patient Tobacco Use Status: Never used Tobacco e-Cigarette/Vaping Use: Never Used Advance Directives: No Advance Directives Information Provided: Yes Current occupational status: unemployed Sexual orientation: Straight/Heterosexual Gender identity: Female Cognitive needs: No Hearing needs: No Vision needs: No Physical Exam ED Vital Signs: Vital Signs - 24 hr 10/26/23 10:38 Temperature 99.4 F Pulse Rate 107 H Respiratory Rate 18 Blood Pressure 138/100 H Pulse Oximetry 97 Oxygen Delivery Method Room Air BMI result Body Mass Index 19.2 Const General: cooperative, no acute distress, alert and awake Nutritional Appearance: well nourished Orientation/consciousness: patient oriented x3 Limitations: no limitations HENMT Head: Yes normal to inspection and Yes atraumatic Ears: hearing grossly normal bilaterally and external ears normal General nose exam: Normal external nose present, no nasal discharge noted and no epistaxis Face and sinus: Yes normal facial exam, No abrasion and No laceration Mouth: Normal oral and palatal mucosa present, no drooling and no muffled voice Eyes General: appearance normal, both eyes and all related structures Periorbital: periorbital findings normal Eyelids: Yes eyelids normal Conjunctivae: conjunctivae normal Pupils: Equal, round and reactive pupils present EOM: EOMs intact bilaterally Neck Neck: Yes normal visual inspection, Yes full ROM and Yes no lymphadenopathy Chest Chest palpation & inspection: normal inspection of the chest Resp Effort & Inspection: normal respiratory effort and able to speak in complete sentences Auscultation: clear to auscultation bilaterally Cardio Rate: regular rate Rhythm: regular rhythm GI Inspection: Yes normal to inspection Neuro General: patient oriented x3 and moves all extremities Cranial nerves: Yes Equal, round and reactive pupils present Cognition (Neuro): normal cognition Motor exam (neuro): 5/5 motor strength present throughout Sensory Exam: Normal double simultaneous stimulation for sensation Coordination: [id number] test normal Extrem General: Yes normal to inspection, Yes full ROM and Yes capillary refill normal Psych Appearance: grossly normal Mental Status: mental status grossly normal Affect: normal affect Attitude: cooperative Thought process: Normal thought process present Thought content: Normal thought content present Insight: Good insight present (Psych) Medications Administered Discontinued Medications Generic Name Dose Route Start Last Admin Trade Name Chris PRN Reason Stop Dose Admin Acetaminophen 975 mg 10/26/23 14:10 10/26/23 14:17 Acetaminophen 325 Mg Tablet PO 10/26/23 14:11 975 mg ONCE ONE Administration Medical Decision Making Medical Decision Making [facility] Narrative: Patient is a 63 year old assigned female at with a history of diverticulosis presenting to the emergency department today for evaluation from an urgent care. Patient's physical exam was unremarkable. She was initially tachycardic but on re-evaluation, she was not. Patient's blood work was unremarkable. Patient's urine showed continued infection for which she is already on antibiotics. Patient's EKG was unremarkable. Patient's chest x-ray showed no acute process. Patient was COVID-19 positive at the urgent care this morning. I explained my physical exam findings as well as all test results to the patient. I answered all questions asked by the patient. I stressed the importance of the patient taking her medication as prescribed. I stressed the importance of the patient following up with her primary care provider. I stressed the importance of the patient returning to the emergency department immediately if her symptoms were to worsen or if she were to develop any dizziness, shortness of breath, difficulty breathing, chest pain, blurry vision, loss of vision, nausea, vomiting, abdominal pain, fever, chills, back pain, or any other complaints. Patient verbalized agreement and understanding with this treatment plan and discharge. Differential Diagnosis Differential Diagnoses: The differential diagnosis associated with the presentation includes COVID-19 Influenza RSV UTI Medical examination Admission/Observation Consideration of admission/observation: Escalation of care including admission/observation considered Patient would have been admitted to the hospital had her work up had any findings where hospital admission was appropriate and her clinical presentation warranted hospital admission. Lab Data [facility] Lab Attestation statement: I reviewed the patient's lab results. My interpretation of these results are in the [facility] Rationale portion of this note. 10/26/23 11:05 10/26/23 11:05 Labs: Lab Results 10/26/23 10/26/23 Range/Units 11:05 13:58 WBC 8.2 (4.8-10.8) X10*3/uL RBC 4.68 (4.20-5.50) X10*6/uL Hgb 14.1 (12.0-16.0) g/dl Hct 42.9 (37.0-47.0) % MCV 91.7 (80.0-98.0) fL MCH 30.1 (27.0-33.0) pg MCHC 32.9 (31.0-35.0) g/dl RDW 12.0 (11.0-16.0) % Plt Count 253 (160-400) X10*3/uL MPV 9.0 L (9.4-12.3) fL Immature Gran % (Auto) 0.2 (0.0-0.4) % Neut % (Auto) 80.2 H (45-73) % Lymph % (Auto) 7.8 L (20-40) % [place] % (Auto) 11.2 H (2-11) % Eos % (Auto) 0.2 (0-4) % Baso % (Auto) 0.4 (0-2) % Lymph # (Auto) 0.6 L (1.2-4.9) X10*3/uL [place] # (Auto) 0.9 (0.1-1.2) X10*3/uL Eos # (Auto) 0.0 (0.0-0.4) X10*3/uL Baso # (Auto) 0.0 (0.0-0.2) X10*3/uL Abs Immat Gran (auto) 0.02 (0.00-0.03) X10*3/uL Absolute Neuts (auto) 6.5 (2.0-8.3) x10*3/uL Absolute Nucleated RBC 0.000 (0.0-0.012) X10*3/uL Nucleated RBC % (auto) 0.0 (0.0-0.2) /100WBC Sodium 139 (135-145) mmol/L Potassium 3.7 (3.3-5.1) mmol/L Chloride 103 (96-108) mmol/L Carbon Dioxide 24 (22-29) mmol/L Anion Gap 16 (12-20) BUN 16 (9-16) mg/dL Creatinine 0.77 (0.5-1.4) mg/dL Estim Creat Clear Calc 65.4 Estimated GFR > 60 Random Glucose 97 (60-115) mg/dL Calcium 9.8 (8.4-10.2) mg/dL Magnesium 1.9 (1.6-2.6) mg/dL Troponin I High Sens < 2.7 (<3.5-17.0) ng/L Urine Color Yellow Urine Appearance Clear Urine pH 5.0 (5.0-9.0) Ur Specific [place] 1.020 (1.005-1.025) Urine Protein 30 (1+) H (Neg-Trace) mg/dL Urine Glucose (UA) Negative (Negative) mg/dL Urine Ketones 15 (Negative) mg/dL Urine Blood Moderate (2+) H (Negative) Urine Nitrite Negative (Negative) Ur Leukocyte Esterase Negative (Negative) Urine RBC 11-20 H (0-2) /HPF Urine WBC 0-5 (0-5) /HPF Ur Squamous Epith Cells 0-2 (0-2) /HPF Urine Bacteria None Seen (None Seen) Hyaline Casts 0-2 (0-2) /LPF Independent Interpretation I performed an independent interpretation of an: EKG and Plain X-Ray Interpretation: My interpretation is in agreement with the radiologist's impression of this imaging study. - EXAMINATION: XR CHEST CLINICAL INFORMATION: Left chest and rib pain COMPARISON: Previous chest x-ray December 2018 TECHNIQUE: Frontal view of the chest was obtained. FINDINGS: The cardiac and mediastinal contours are stable. The lungs are clear. No pleural effusion or pneumothorax. Thoracolumbar scoliosis and degenerative change of the spine. XR/XR chest 1V IMPRESSION: No evidence for acute disease in the chest. Dictated By: Robyn Lewis MD Signed By: Electronically signed by Robyn Lewis MD 10/26/23 1201 - Vent. Rate: 098 BPM Atrial Rate: 098 BPM P-R Int: 122 ms QRS Dur: 066 ms QT Int: 324 ms P-R-T Axes: -17 -73 -08 degrees QTc Int: 413 ms Normal sinus rhythm Left axis deviation Anteroseptal infarct , age undetermined Abnormal ECG When compared with ECG of 13-APR-2022 08:16, Anteroseptal infarct is now Present ST now depressed in Lateral leads Nonspecific T wave abnormality now evident in Anterolateral leads DD/ 1026 Radiology Impression Discussion of test interpretation with radiology: I have reviewed the radiologist's reading. Discharge Plan Discharge Clinical Impression: COVID-19 Patient Disposition: Home, Self-Care Instructions: COVID-19 (Coronavirus Disease 2019) (ED) Additional Instructions: Follow up with your primary care provider. Return to the emergency department immediately if your symptoms worsen or if you develop any dizziness, shortness of breath, difficulty breathing, chest pain, blurry vision, loss of vision, nausea, vomiting, abdominal pain, fever, chills, back pain, or any other complaints. Prescriptions: No Action acetaminophen 500 mg Tablet 500 mg PO Q6H PRN (Reason: Pain, Moderate) cefuroxime axetil 250 mg tablet 250 mg PO BID Qty: 14 0RF methocarbamol 500 mg tablet 500 mg PO TID PRN (Reason: cramping) Qty: 14 0RF Referrals: Rosio Chandler MD [Primary Care Provider] - Interventions: ED Discharge Assessment Last Done: 10/26/23 14:20 Discharge Date/Time: 10/26/23 14:21 Print Language: [place]
[2023-10-26 14:07] LABS: Appearance Urine Clear; Color Urine Yellow; Glucose Urine UA Negative (Negative); Leukocyte Esterase Urine Negative (Negative); Nitrite Urine Negative (Negative); UMIC TRIGGER UACC YES; Urine Blood Moderate (2+) (Negative); Urine Ketones 15 mg/dL (Negative); Urine Protein 30 (1+) mg/dL (Neg-Trace)
[2023-10-26 14:15] LABS: Bacteria Urine None Seen (None Seen); Hyaline Casts Urine 0-2 /LPF (0-2); Squamous Epithelial Cell Urine 0-2 /HPF (0-2); WBC Urine 0-5 /HPF (0-5)
[2023-10-26] MEDS: Acetaminophen 325 MG TABLET 975 MG PO (14:17)
== END 2023-10-26 14:21 | disposition home or self-care (01) ==
PROVIDERS: Emergency Provider Emergency Medicine Emergency Medical Services; PCP Internal Medicine
DX: U07.1 COVID-19 (principal); R07.9 Chest pain, unspecified; R00.0 Tachycardia, unspecified
CPT/HCPCS: 36415; 71045; 80048; 81001; 83735; 84484; 85025; 93005; 99284

== ENCOUNTER → 2023-10-26 10:16 | Outpatient (BNV) | payer OTHER, SELFPAY | PROVIDERS: Emergency Provider Emergency Medicine Emergency Medical Services; PCP Internal Medicine; Visit Provider Internal Medicine | DX: R94.31 Abnormal electrocardiogram [ECG] [EKG] (principal) | CPT/HCPCS: 93010 ==

== ENCOUNTER 2023-12-05 08:36 | Emergency (ER) | payer OTHER, SELFPAY ==
--- NOTE | ~2023-12-05 | CT_ITS ---
EXAMINATION: CT ABDOMEN AND PELVIS WITH CONTRAST CLINICAL INFORMATION: Epigastric pain radiating to back COMPARISON: CT abdomen pelvis 10/23/2023 Renal ultrasound 01/09/2019 TECHNIQUE: Multidetector volumetric images were obtained from the superior aspect of the liver through the pubic symphysis following administration 85 mL of Omnipaque 350 intravenous contrast. Sagittal and coronal reformatted images were obtained on the technologist's workstation. Oral contrast: No This CT examination was performed using dose optimization techniques as appropriate, variously including the following: *Automated exposure control *Adjustment of mA and/or kV according to patient size (this includes techniques or standardized protocols for targeted exams where dose is matched to indication/reason for exam; i.e. extremities or head) *Use of iterative reconstruction technique DLP: 350 mGy-cm FINDINGS: LUNG BASES: The visualized lung bases are unremarkable. Some minimal bibasilar atelectasis is present LIVER, GALLBLADDER, AND BILIARY TREE: The liver is normal in size, shape, and attenuation. No focal hepatic lesion. There is minimal prominence of intrahepatic bile ducts but no gross biliary ductal dilatation is present. The gallbladder is unremarkable with no evidence of radiopaque gallstones, gallbladder wall thickening, or obvious pericholecystic inflammatory changes. PANCREAS: Unremarkable. SPLEEN: Unremarkable. ADRENAL GLANDS: Unremarkable. KIDNEYS AND URETERS: Again seen is an abnormality in the mid left kidney with scarring and loss of cortex with extension of what appears to be the collecting system to the surface of the kidney which has some calcifications. 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 A cyst was diagnosed on the 01/09/2019 renal ultrasound but I believe that this probably represents the same finding described above. No concerning renal masses are seen. The kidneys are otherwise normal in size, shape, and attenuation. No hydronephrosis, hydroureter, or nephrolithiasis seen. No perinephric stranding. BLADDER: Unremarkable. GASTROINTESTINAL TRACT: The small and large bowel are unremarkable. The appendix is not identified with certainty but there is no evidence of appendicitis no evidence of appendicitis. ABDOMINAL WALL: No significant hernia is appreciated. LYMPH NODES: No retroperitoneal lymphadenopathy. VASCULAR: Unremarkable. PELVIC VISCERA: The retroverted uterus and adnexa are unremarkable. OSSEOUS STRUCTURES: Marked scoliosis convex to the left with mild degenerative changes in the spine. CT/CT abdomen pelvis w IV con IMPRESSION: 1. A cause for the patient's epigastric pain radiating to the back has not been found. 2. 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 3. Marked scoliosis convex to the left with mild degenerative changes in the spine. Fleischner guidelines were followed.
[2023-12-05 08:40] VITALS: BP 133/91; PULSE 96; RESP 15; TEMP 36.6; O2SAT 98; BMI 19.4
[2023-12-05 09:08] VITALS: BP 135/86; PULSE 78; RESP 18; TEMP 36.7; O2SAT 98
--- NOTE | 2023-12-05 09:10 | PC.NURSE ---
Alert and oriented, reports 8/10 left sided abdominal, flank and back pain that radiates up into her shoulder and neck.Reports has had this pain on and off again for a few months. Reports hx of diverticulitis. States last BM was this morning and takes laxatives for occasional constipation. VSS,
--- NOTE | 2023-12-05 09:26 | ECG_ITS ---
Test Reason : abd pain Blood Pressure : / mmHG Vent. Rate : 070 BPM Atrial Rate : 070 BPM P-R Int : 124 ms QRS Dur : 082 ms QT Int : 400 ms P-R-T Axes : 055 -39 021 degrees QTc Int : 432 ms Normal sinus rhythm Left axis deviation Low voltage QRS cannot exclude old anteroseptal infarct Abnormal ECG When compared with ECG of 26-OCT-2023 10:26, No significant changes seen Referred By: Charlette Noble Electronically Signed By:ORA GARCIA
--- NOTE | 2023-12-05 09:29 | ED.ABDPAIN ---
HPI - Abdominal Pain General Chief Complaint: Abdominal Pain Stated Complaint: Abd & back pain Time Seen by Provider: 12/05/23 09:04 Source: patient Mode of arrival: ambulatory Limitations: no limitations History of Present Illness HPI narrative: 63 yo female no sig PMH other than GERD, prior uncomplicated diverticulitis, no prior abdominal surgeries, occasional PRN tylenol here with c/o upper abdominal pain radiating to the back and some nausea - pain worse with eating now over the past couple of days pain radiates to L shoulder. No fevers. MD elicited complaint: abdominal pain Pertinent past history: diverticulitis Onset (ago): month(s) (1) Pain Consistency: intermittent Location: epigastric Severity: moderate Quality: cramping and aching Radiation: back and other (L shoulder) Migration to: no migration Exacerbating factors: eating Relieving factors: nothing Associated symptoms: nausea and constipation Related Data Home Medications Medication Instructions Recorded Confirmed acetaminophen 500 mg tablet 500 mg PO Q6H PRN Pain, Moderate 05/18/21 10/11/23 Previous Rx's Medication Instructions Recorded methocarbamol 500 mg tablet 500 mg PO TID PRN cramping #14 tabs 10/11/23 cefuroxime axetil 250 mg tablet 250 mg PO BID #14 tabs 10/23/23 sucralfate 100 mg/mL oral 10 ml PO BID 14 days #280 mL 12/05/23 suspension (Carafate) Allergies Allergy/AdvReac Type Severity Reaction Status Date / Time No Known Allergies Allergy Verified 12/05/23 08:40 [No Known Allergies*] Review of Systems Review of Systems Constitutional : No Weight loss, No Fever, No Chills ENT/Mouth : No sore throat, No Rhinorrhea Eyes: No Swelling, No Redness Cardiovascular : No Chest Pain, No SOB, NoEdema Respiratory : No Cough, No Sputum, No Wheezing Gastrointestinal : Positive Nausea, no Vomiting, no Diarrhea, positive abdominal Pain, No Hematochezia, No Melena Genitourinary : No Dysuria, No Urinary Frequency, No Hematuria, No Urgency Musculoskeletal : No joint pain, No Myalgias, No Joint Swelling Skin : No Skin Lesions, No rash Neuro : No Weakness, No Numbness, No Dizziness, No Headache Psych : No Anxiety/Panic, No Depression All other systems reviewed and are negative. [facility] Past Medical History Attestation statement: The following information was validated with the patient. Source: old records reviewed Onset Date is defined in the Problem List Problems that require an onset date and time if occurred within 24 hrs of arrival to the ED Aortic Dissection and Rupture; Neurologic impairment; Cardiopulmonary Arrest; Endotracheal Intubation; Insertion or Replacement of Mechanical Circulatory Assist Device Medical History URI (upper respiratory infection) Proteinuria Hematuria Left flank pain Excessive cerumen in right ear canal Infection of right ear Irritation of right eye Bleeding per rectum Blurring of vision Rash Postmenopausal bleeding Encounter to discuss test results COVID-19 virus infection Nasal congestion Headache Myalgia Abdominal cramping Underweight due to inadequate caloric intake Gastric inflammation Pain in right wrist Dysphagia Nausea Dysphagia Altered bowel habits Acid reflux Hard stool Abdominal pain Encounter for general adult medical examination with abnormal findings Postmenopausal vaginal bleeding Well woman exam with routine gynecological exam Ingrown toenail of left foot Toe infection Paronychia of great toe of left foot Paronychia of great toe of right foot Paronychia due to ingrown nail Paronychia History of COVID-19 Endocervical polyp GERD (gastroesophageal reflux disease) Arthritis of right wrist Scoliosis Hx of migraines History of iron deficiency anemia Surgical History Hx of esophagogastroduodenoscopy Hx of colonoscopy History of tonsillectomy Family History Family History Father Diabetes mellitus Stomach cancer Mother HTN (hypertension) Afib Heart failure Maternal Grandfather CVD (cardiovascular disease) Maternal Grandmother Leukemia Paternal Grandfather Cancer Paternal Grandmother No problems noted. Brother No problems noted. Brother No problems noted. Brother No problems noted. Brother No problems noted. Brother No problems noted. Sister No problems noted. Sister No problems noted. Sister No problems noted. Social History Social History Household Members: None Housing: Condominium Alcohol intake: former Patient Tobacco Use Status: Never used Tobacco Smoked in Last 30 Days: No e-Cigarette/Vaping Use: Never Used Use of substances other than those prescribed or required for medical reasons: No Advance Directives: No Advance Directives Information Provided: Yes Current occupational status: unemployed Sexual orientation: Straight/Heterosexual Gender identity: Female Cognitive needs: No Hearing needs: No Vision needs: No Physical Exam ED Vital Signs: Vital Signs - 24 hr 12/05/23 08:40 12/05/23 09:08 12/05/23 10:00 Temperature 98 F 98.1 F Pulse Rate 96 78 Respiratory Rate 15 18 18 Blood Pressure 133/91 H 135/86 Pulse Oximetry 98 98 99 Oxygen Delivery Method Room Air Room Air Room Air BMI result Body Mass Index 19.4 Appearance: Alert. Oriented X3. No acute distress. Eyes: Pupils equal, round and reactive to light. ENT: Pharynx normal. Neck: Normal inspection. Neck supple. CVS: Normal heart rate and rhythm. Pulses normal. Respiratory: No respiratory distress. Breath sounds normal. Abdomen: Soft and moderate epigastric ttp no rebound Skin: Skin warm and dry. Normal skin color. Normal skin turgor. Extremities: No lower extremity edema. No calf ttp Neuro: Oriented X 3. No motor deficit. No sensory deficit. Medical Decision Making Medical Decision Making [facility] Narrative: 63 yo female with PMH of GERD, diverticulitis no prior abdominal surgeries here with 1 month of worsening abdominal pain radiating to the back now to L shoulder at this time she denies weight loss - she will need labs, CT scan for biliary colic, pancreatitis, mass, pseudocyst. EKG for ACS. IVF ordered, she declines pain medications. She denies NSAID use at home so PUD seems less likely. Differential Diagnosis Differential Diagnoses: The differential diagnosis associated with the presentation includes biliary colic, pancreatitis, mass, pseudocyst. gastritis, PUD, ACS Admission/Observation Consideration of admission/observation: Escalation of care including admission/observation considered negative workup stable for DC Lab Data [facility] Lab Attestation statement: I reviewed the patient's lab results. 12/05/23 10:01 12/05/23 10:01 Labs: Lab Results 12/05/23 12/05/23 Range/Units 10:00 10:01 WBC 6.4 (4.8-10.8) X10*3/uL RBC 4.32 (4.20-5.50) X10*6/uL Hgb 13.0 (12.0-16.0) g/dl Hct 39.3 (37.0-47.0) % MCV 91.0 (80.0-98.0) fL MCH 30.1 (27.0-33.0) pg MCHC 33.1 (31.0-35.0) g/dl RDW 12.1 (11.0-16.0) % Plt Count 288 (160-400) X10*3/uL MPV 9.0 L (9.4-12.3) fL Immature Gran % (Auto) 0.2 (0.0-0.4) % Neut % (Auto) 71.2 (45-73) % Lymph % (Auto) 20.3 (20-40) % [place] % (Auto) 7.5 (2-11) % Eos % (Auto) 0.3 (0-4) % Baso % (Auto) 0.5 (0-2) % Lymph # (Auto) 1.3 (1.2-4.9) X10*3/uL [place] # (Auto) 0.5 (0.1-1.2) X10*3/uL Eos # (Auto) 0.0 (0.0-0.4) X10*3/uL Baso # (Auto) 0.0 (0.0-0.2) X10*3/uL Abs Immat Gran (auto) 0.01 (0.00-0.03) X10*3/uL Absolute Neuts (auto) 4.6 (2.0-8.3) x10*3/uL Absolute Nucleated RBC 0.000 (0.0-0.012) X10*3/uL Nucleated RBC % (auto) 0.0 (0.0-0.2) /100WBC Sodium 141 (135-145) mmol/L Potassium 3.9 (3.3-5.1) mmol/L Chloride 105 (96-108) mmol/L Carbon Dioxide 30 H (22-29) mmol/L Anion Gap 10 L (12-20) BUN 16 (9-16) mg/dL Creatinine 0.79 (0.5-1.4) mg/dL Estim Creat Clear Calc 64.2 Estimated GFR > 60 Random Glucose 92 (60-115) mg/dL Calcium 10.3 H (8.4-10.2) mg/dL Magnesium 2.0 (1.6-2.6) mg/dL Total Bilirubin 0.6 (0.0-1.0) mg/dL Direct Bilirubin 0.2 (0.0-0.5) mg/dL AST 19 (5-31) U/L ALT 22 (0-31) U/L Alkaline Phosphatase 90 (39-117) U/L Troponin I High Sens < 2.7 (<3.5-17.0) ng/L C-Reactive Protein < 0.10 (< or = 0.50) mg/dL Total Protein 7.5 (6.5-8.0) g/dL Albumin 4.5 (3.5-5.0) g/dL Lipase 21 (8-78) U/L Urine Color Yellow Urine Appearance Clear Urine pH 8.0 (5.0-9.0) Ur Specific [place] 1.015 (1.005-1.025) Urine Protein Negative (Neg-Trace) mg/dL Urine Glucose (UA) Negative (Negative) mg/dL Urine Ketones Negative (Negative) mg/dL Urine Blood Negative (Negative) Urine Nitrite Negative (Negative) Ur Leukocyte Esterase Negative (Negative) Independent Interpretation I performed an independent interpretation of an: EKG and CT Scan Interpretation: Rate: 70 Rhythm: NSR [place]: left Normal P waves. Normal CHETNA. Normal QRS complex. ST T wave : no ARAM, inverted t wave III qTC: normal prior studies: no acute ischemia The study has been interpreted contemporaneously by me. . Radiology Impression Discussion of test interpretation with radiology: I have reviewed the radiologist's reading. Prescription Management I considered prescription management with: Other Medications Administered Discontinued Medications Generic Name Dose Route Start Last Admin Trade Name Chris PRN Reason Stop Dose Admin Sodium Chloride 1,000 mls @ 999 mls/hr 12/05/23 09:30 12/05/23 11:50 Ns IV 12/05/23 10:30 Infused .Q1H1M RC Infusion Iohexol 85 ml 12/05/23 10:46 12/05/23 10:46 Iohexol 350 Mg/Ml 100 Ml Infus..Btl IV 12/05/23 10:47 85 ml ONCE ONE Administration Discharge Plan Discharge Clinical Impression: Abdominal pain Qualifiers: Abdominal location: epigastric Qualified Code(s): R10.13 - Epigastric pain Patient Disposition: Home, Self-Care Instructions: Abdominal Pain (ED) Additional Instructions: labs reassuring, CT scan no acute findings on CT scan at this time make sure you are taking your pantoprazole. please follow up with Dr. Mathias. Return for worsening symptoms, vomiting, inability to eat or drink or any other concerns. tylenol is okay but avoid motrin ibuprofen aleve Prescriptions: New sucralfate [Carafate] 100 mg/mL suspension 10 ml PO BID 14 Days Qty: 280 0RF No Action acetaminophen 500 mg Tablet 500 mg PO Q6H PRN (Reason: Pain, Moderate) cefuroxime axetil 250 mg tablet 250 mg PO BID Qty: 14 0RF methocarbamol 500 mg tablet 500 mg PO TID PRN (Reason: cramping) Qty: 14 0RF
[2023-12-05 10:00] VITALS: RESP 18; O2SAT 99
[2023-12-05] MEDS: 0.9 % Sodium Chloride 1,000 ML 999 ML IV (10:02)
[2023-12-05 10:08] LABS: MANUAL DIFF FLAG NO
[2023-12-05 10:13] LABS: Appearance Urine Clear; Color Urine Yellow; Glucose Urine UA Negative (Negative); Leukocyte Esterase Urine Negative (Negative); Nitrite Urine Negative (Negative); Specific Gravity - Urine 1.015 (1.005-1.025); Urine Blood Negative (Negative); Urine Ketones Negative (Negative); Urine Protein Negative (Neg-Trace)
[2023-12-05 10:13] LABS: Basophils Percent Auto 0.5 % (0-2); Eosinophils Percent Auto 0.3 % (0-4); Hematocrit 39.3 % (37.0-47.0); Imm Gran Abs Auto 0.01 X10*3/uL (0.00-0.03); Imm Gran Pct Auto 0.2 % (0.0-0.4); Lymphocytes Absolute Auto 1.3 X10*3/uL (1.2-4.9); Lymphocytes Percent Auto 20.3 % (20-40); Mean Corpuscular HGB Conc 33.1 g/dl (31.0-35.0); Mean Corpuscular Hemoglobin 30.1 pg (27.0-33.0); Monocytes Absolute Auto 0.5 X10*3/uL (0.1-1.2); Monocytes Percent Auto 7.5 % (2-11); Neutrophils Absolute Auto 4.6 x10*3/uL (2.0-8.3); Neutrophils Percent Auto 71.2 % (45-73); Platelet Count 288 X10*3/uL (160-400); Red Blood Count 4.32 X10*6/uL (4.20-5.50); Red Cell Distribution Width 12.1 % (11.0-16.0); White Blood Count 6.4 X10*3/uL (4.8-10.8)
[2023-12-05 10:28] LABS: Alanine Aminotransferase 22 U/L (0-31); Albumin Level 4.5 g/dL (3.5-5.0); Alkaline Phosphatase 90 U/L (39-117); Anion Gap 10 (12-20); Aspartate Amino Transferase 19 U/L (5-31); Bilirubin Direct 0.2 mg/dL (0.0-0.5); Bilirubin Total 0.6 mg/dL (0.0-1.0); Blood Urea Nitrogen 16 mg/dL (9-16); C Reactive Protein < 0.10 mg/dL (< or = 0.50); Calcium 10.3 mg/dL (8.4-10.2); Carbon Dioxide 30 mmol/L (22-29); Chloride 105 mmol/L (96-108); Creatinine Clr Calc Pharmacy 64.2; Estimated Glomerular Filt Rate > 60; Glucose Random 92 mg/dL (60-115); Lipase 21 U/L (8-78); Potassium 3.9 mmol/L (3.3-5.1); Sodium 141 mmol/L (135-145); Total Protein 7.5 g/dL (6.5-8.0)
[2023-12-05 10:37] LABS: Troponin-I High Sensitivity < 2.7 ng/L (<3.5-17.0)
[2023-12-05] MEDS: iohexoL 350 MG/ML 100 ML INFUS..BTL 85 ML IV (10:46)
== END 2023-12-05 13:05 | disposition home or self-care (01) ==
PROVIDERS: Emergency Provider Emergency Medicine; PCP Internal Medicine
DX: R10.10 Upper abdominal pain, unspecified (principal); M54.50 Low back pain, unspecified; R11.2 Nausea with vomiting, unspecified; K59.00 Constipation, unspecified; M25.512 Pain in left shoulder; R07.89 Other chest pain; R10.13 Epigastric pain; Z79.899 Other long term (current) drug therapy
CPT/HCPCS: 36415; 74177; 80048; 80076; 81003; 83690; 83735; 84484; 85025; 86140; 93005; 96360; 96361; 99284; 99285; Q9967

== ENCOUNTER → 2023-12-05 09:26 | Outpatient (BNV) | payer OTHER, SELFPAY | PROVIDERS: Emergency Provider Emergency Medicine; PCP Internal Medicine; Visit Provider Internal Medicine | DX: I44.4 Left anterior fascicular block (principal) | CPT/HCPCS: 93010 ==

== ENCOUNTER 2023-12-11 09:25 | Outpatient (AMB) | payer OTHER, SELFPAY ==
[2023-12-11 09:38] VITALS: BP 130/88; PULSE 80; O2SAT 96; BMI 20.1
--- NOTE | 2023-12-11 09:38 | MHC.PC.OV ---
Vital Signs 12/11/23 09:38 Height 5 ft 6 in Weight 124 lb 8 oz BMI 20.1 BP 130/88 Blood Pressure Location Lt brachial Position Sitting Pulse 80 Pulse Source Pulse Oximeter Pulse Oximetry (%) 96 Oxygen Delivery Method Room Air Intake Visit Reasons: Follow up Walk-in AB pain/Cramping Allergies No Known Allergies [No Known Allergies*] Allergy (Verified 12/11/23 09:42) Medication List - Last Reconciled 12/11/23 by Rosio Chandler MD acetaminophen 500 mg PO Q6H PRN cefuroxime axetil 250 mg PO BID docusate sodium (Colace) 100 mg PO BID methocarbamol 500 mg PO TID PRN pantoprazole 40 mg PO DAILY polyethylene glycol 3350 (Miralax) 17 grams PO BID sucralfate (Carafate) 10 mL PO BID 14 days Tobacco use date assessed: 12/11/23 Dental Screening Dental Screen Date: 12/11/23 Did you have a dental visit in the last 12 months?: No Did you have a dental problem in the last 6 months where you did not have access to dental care?: No Was dental information given to patient?: Patient has dentist HPI Follow up Walk-in AB pain/Cramping HPI Details Patient is 63-year-old female who presented to emergency room [facility] 12/05/2023 with a chief complaint of upper abdomen pain 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 She has appointment coming up with the gastroenterology next month. Patient was reassured CT scan findings were reviewed with her again patient was given time to ask questions. She is tolerating solid food and is keeping fluids down On exam today she has just mild discomfort with pressure over epigastric area [facility] Medical History URI (upper respiratory infection) Proteinuria Hematuria Left flank pain Excessive cerumen in right ear canal Infection of right ear Irritation of right eye Bleeding per rectum Blurring of vision Rash Postmenopausal bleeding Encounter to discuss test results COVID-19 virus infection Nasal congestion Headache Myalgia Abdominal cramping Underweight due to inadequate caloric intake Gastric inflammation Pain in right wrist Dysphagia Nausea Dysphagia Altered bowel habits Acid reflux Hard stool Abdominal pain Encounter for general adult medical examination with abnormal findings Postmenopausal vaginal bleeding Well woman exam with routine gynecological exam Ingrown toenail of left foot Toe infection Paronychia of great toe of left foot Paronychia of great toe of right foot Paronychia due to ingrown nail Paronychia History of COVID-19 Endocervical polyp GERD (gastroesophageal reflux disease) Arthritis of right wrist Scoliosis Hx of migraines History of iron deficiency anemia Surgical History Hx of esophagogastroduodenoscopy Hx of colonoscopy History of tonsillectomy Family History Father Diabetes mellitus Stomach cancer Mother HTN (hypertension) Afib Heart failure Maternal Grandfather CVD (cardiovascular disease) Maternal Grandmother Leukemia Paternal Grandfather Cancer Paternal Grandmother No problems noted. Brother No problems noted. Brother No problems noted. Brother No problems noted. Brother No problems noted. Brother No problems noted. Sister No problems noted. Sister No problems noted. Sister No problems noted. Social History Household Members: None Housing: Condominium Alcohol intake: former Patient Tobacco Use Status: Never used Tobacco e-Cigarette/Vaping Use: Never Used Current occupational status: unemployed Sexual orientation: Straight/Heterosexual Gender identity: Female Cognitive needs: No Hearing needs: No Vision needs: No Questionnaire Thrive Questionnaire Date Thrive assessed: 12/25/22 AUDIT C Alcohol Use Questionnaire (AUDIT-C) 1. How often do you have a drink containing alcohol?: Never 3. How often do you have six or more drinks on one occasion?: Never Total Score: 0 Score Reviewed/Action Taken: Yes XOCHITL-7 AMB Questionnaire XOCHITL-7 Date XOCHITL - 7 assessed: 12/25/22 Source: Developed by Drs. Bassem Yousif, Bekah Delacruz, Curly Lim and colleagues, with an educational tiffany from [employer]. Review of Systems Const Denies chills and Denies fever(s) ENT Denies epistaxis and Denies nasal discharge Card Denies chest pain Resp Denies chest congestion, Denies cough and Denies hemoptysis GI Denies diarrhea and Denies nausea Skin/Breast Denies rash Neuro Reports no additional complaints Psych Reports no additional complaints Endo Reports no additional complaints Physical exam (Primary Care) Vital Signs: Last Vital Signs Pulse 80 12/11/23 09:38 BP 130/88 12/11/23 09:38 Pulse Ox 96 12/11/23 09:38 Oxygen Delivery Method Room Air 12/11/23 09:38 BMI result Body Mass Index 20.1 Tobacco/Smoking Status: Tobacco use Status Tobacco use date assessed 12/11/23 12/11/23 09:42 Patient Tobacco Use Status Never used Tobacco 12/11/23 09:42 e-Cigarette/Vaping Use Never Used 12/11/23 09:42 Thrive Assessment: Date of Thrive Assessment Date Thrive assessed 12/25/22 12/11/23 09:42 Const General: cooperative, comfortable and no acute distress Orientation/consciousness: patient oriented x3 HENSD Head: Yes normocephalic Eyes General: appearance normal, both eyes and all related structures Neck Neck: Yes supple Resp Effort & Inspection: normal respiratory effort, no cough and no stridor Cardio Rhythm: regular rhythm Heart sounds: S1 normal heart sound present and S2 normal heart sound present GI Abdomen image: 1. 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 She has appointment coming up with the gastroenterology next month. Patient was reassured CT scan findings were reviewed with her again patient was given time to ask questions. She is tolerating solid food and is keeping fluids down On exam today she has just mild discomfort with pressure over epigastric area Coding Level of Care Code Est Pt Level 4 (24790) Diagnoses Acute epigastric pain R10.13
== END 2023-12-11 16:27 | disposition home or self-care (01) ==
PROVIDERS: PCP Internal Medicine; Visit Provider Internal Medicine
DX: R10.13 Epigastric pain (principal)
CPT/HCPCS: 99214

== ENCOUNTER 2023-12-23 12:25 | Outpatient (REF) | payer OTHER, SELFPAY | END 2023-12-23 12:26 | disposition home or self-care (01) | LOC: HO.MAMMO 12:25 | PROVIDERS: PCP Internal Medicine; Visit Provider Internal Medicine | DX: Z12.31 Encounter for screening mammogram for malignant neoplasm of breast (principal) | CPT/HCPCS: 77063; 77067 ==

== ENCOUNTER → 2023-12-23 13:00 | Outpatient (BNV) | payer OTHER, SELFPAY | PROVIDERS: PCP Internal Medicine; Visit Provider Radiology Diagnostic Radiology | DX: Z12.31 Encounter for screening mammogram for malignant neoplasm of breast (principal) | CPT/HCPCS: 77063; 77067 ==

== ENCOUNTER 2024-01-13 10:47 | Outpatient (AMB) | payer OTHER, SELFPAY ==
[2024-01-13 10:48] VITALS: BP 140/81; PULSE 84; BMI 19.4
--- NOTE | 2024-01-13 10:48 | MHC.OFFVIS ---
Intake Vital Signs 01/13/24 10:48 Height 5 ft 6 in Weight 120 lb BMI 19.4 BP 140/81 H Blood Pressure Location Lt brachial Position Sitting Pulse 84 Intake Visit Reasons: follow up from urgent care Intake Note: Tammi presents in the office as a follow up from urgent care. CC: She states that she is having pains from the middle of her epigastric region, it goes to her back and up to her shoulder and it feels like she is beig strangled. She takes OTC laxatives when needed because she is dealing with constipation. Allergies No Known Allergies [No Known Allergies*] Allergy (Verified 01/13/24 11:35) HPI follow up from urgent care HPI Details 63 yr old f being seen for f/u RECAP: Initial visit: She had been having 2 yrs hx of mild to mdoerate persistent lower abdominal cramps, when seen before can be relieved with passing gas or stool, blood in stool as well describes tenesmus and incomplete evacuation, urgency with stool she denied diarrhea, occ constipation with bloating likes dairy thomas yoghurt occ feels solids getting stick in throat and has to cough back up she had stress and anxiety but mild, has good sleep TESTS: Pelvic US 11/2020---no masses, small cervical polyp colonoscopy 2018--excellent prep, wide mouthed divertculosis, polyps removed--hyperplastic, hemorrhoids, grade II EGD/colonoscopy: 05/18/21--balloon dilation as well Endoscopy Findings: gastritis Colonoscopy Findings: internal hemorrhoids diverticular disease BX: moderate chronic inflammation at GEJ, and gastritis Repeat EGD/colonoscopy: 04/2023 Endoscopy Findings: esophagitis gastritis balloon dilation was also done Colonoscopy Findings: internal hemorrhoids diverticular disease INTERIM: she has been having crampy mid and upper abdo pain taking laxatives, when passes gas and stool it reduces the pain no nausea or vomiting she has been taking senna going to the toilet 3/day and spends a long time pushing, stool is hard CT in ED-- scolisois, 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 VITAL SIGNS:see workflow HEENT: Nonicteric sclerae, PERRLA, EOMI. Oropharynx clear. Moist mucous membranes. Conjunctivae appear well perfused. No thyroid mass. CHEST: Chest wall is nontender. HEART: Regular rate and rhythm without murmurs. LUNGS: Clear to auscultation bilaterally. ABDOMEN: Soft, positive bowel sounds, tender both lower quadrants, no organomegaly.no flank tenderness SKIN: No rash, no excessive bruising, petechiae, or purpura. NEUROLOGIC: Cranial nerves II-XII intact without motor/sensory deficit. psych--nml MS: scoliosis A/P: 1/ Abdominal cramping and constipation maybe worse due to scoliosis and diverticulosis, neg CT and UA< labs from recent visit to ED PLAN: 1/ Reviewed high fiber diet again, and fluid requirement s--add miralax and colace, metamucil, bentyl prn 2/ KUB today 3/ if ongoing sx then colonoscopy for further evaluation COUNTS INCLUDE 234 BEDS AT THE [facility] Medical History URI (upper respiratory infection) Proteinuria Hematuria Left flank pain Excessive cerumen in right ear canal Infection of right ear Irritation of right eye Bleeding per rectum Blurring of vision Rash Postmenopausal bleeding Encounter to discuss test results COVID-19 virus infection Nasal congestion Headache Myalgia Abdominal cramping Underweight due to inadequate caloric intake Gastric inflammation Pain in right wrist Dysphagia Nausea Dysphagia Altered bowel habits Acid reflux Hard stool Abdominal pain Encounter for general adult medical examination with abnormal findings Postmenopausal vaginal bleeding Well woman exam with routine gynecological exam Ingrown toenail of left foot Toe infection Paronychia of great toe of left foot Paronychia of great toe of right foot Paronychia due to ingrown nail Paronychia History of COVID-19 Endocervical polyp GERD (gastroesophageal reflux disease) Arthritis of right wrist Scoliosis Hx of migraines History of iron deficiency anemia Surgical History Hx of esophagogastroduodenoscopy Hx of colonoscopy History of tonsillectomy Family History Father Diabetes mellitus Stomach cancer Mother HTN (hypertension) Afib Heart failure Maternal Grandfather CVD (cardiovascular disease) Maternal Grandmother Leukemia Paternal Grandfather Cancer Paternal Grandmother No problems noted. Brother No problems noted. Brother No problems noted. Brother No problems noted. Brother No problems noted. Brother No problems noted. Sister No problems noted. Sister No problems noted. Sister No problems noted. Social History Household Members: None Housing: Condominium Alcohol intake: former Patient Tobacco Use Status: Never used Tobacco e-Cigarette/Vaping Use: Never Used Current occupational status: unemployed Sexual orientation: Straight/Heterosexual Gender identity: Female Cognitive needs: No Hearing needs: No Vision needs: No Physical Exam Vital Signs: Last Vital Signs Pulse 84 01/13/24 10:48 BP 140/81 H 01/13/24 10:48 BMI result Body Mass Index 19.4 Assessment & Plan Assessment & Plan (1) Diverticulosis: Code(s): K57.90 - Diverticulosis of intestine, part unspecified, without perforation or abscess without bleeding Plan: PLAN: 1/ Reviewed high fiber diet again, and fluid requirement s--add miralax and colace, metamucil, bentyl prn 2/ KUB today 3/ if ongoing sx then colonoscopy for further evaluation Orders: Orders XR KUB Today Medications: New polyethylene glycol 3350 (Miralax) 17 grams PO DAILY 100 ea 1RF docusate sodium (Colace) 100 mg PO BID 90 caps 2RF psyllium husk (with sugar) 3 gram/7 gram (Metamucil (with sugar)) 1 tbsp PO DAILY 822 grams 2RF Coding Level of Care Code Est Pt Level 4 (49398) Diagnoses Diverticulosis K57.90
== END 2024-01-13 12:06 | disposition home or self-care (01) ==
PROVIDERS: PCP Internal Medicine; Visit Provider Internal Medicine Gastroenterology
DX: K57.90 Diverticulosis of intestine, part unspecified, without perforation or abscess without bleeding (principal)
CPT/HCPCS: 99214

== ENCOUNTER 2024-01-13 10:47 | Outpatient (REF) | payer OTHER, SELFPAY ==
--- NOTE | ~2024-01-13 | XR_ITS ---
EXAMINATION: XR ABDOMEN KUB CLINICAL INDICATION: Constipation. COMPARISON: CT abdomen and pelvis of 12/05/2023. TECHNIQUE: 2 views of the abdomen. FINDINGS: S-shaped thoracolumbar scoliosis with multilevel degenerative changes. Degenerative changes in the bilateral hips and sacroiliac joints. Large amount of stool in the colon. Gas scattered throughout the colon. XR/XR KUB IMPRESSION: Large amount of stool in the colon.
== END 2024-01-13 10:48 | disposition home or self-care (01) ==
LOC: HO.XRAY 10:47
PROVIDERS: PCP Internal Medicine; Visit Provider Internal Medicine Gastroenterology
DX: K59.00 Constipation, unspecified (principal)
CPT/HCPCS: 74018; 99212

== ENCOUNTER 2024-01-21 08:02 | Outpatient (AMB) | payer OTHER, SELFPAY ==
--- NOTE | 2024-01-21 08:04 | AM.OFFWIN_ITS ---
Intake Vital Signs 01/21/24 08:06 Height 5 ft 6 in Weight 120 lb BMI 19.4 BP 130/80 Blood Pressure Location Lt brachial Position Sitting Pulse 78 Pulse Source Pulse Oximeter Temp 97.9 F Temp Source Oral Pulse Oximetry (%) 98 Intake Visit Reasons: EST/right shoulder pain (lobby) Intake Note: pt s here for right shoulder pain, denies injury Patient Tobacco Use Status: Never used Tobacco Allergies No Known Allergies [No Known Allergies*] Allergy (Verified 01/21/24 08:15) Medication List - Last Reconciled 01/21/24 by Bishop Crespo MD acetaminophen 500 mg PO Q6H PRN cetirizine 10 mg PO DAILY docusate sodium (Colace) 100 mg PO BID hyoscyamine sulfate 0.125 mg PO BID-QID PRN pantoprazole 40 mg PO DAILY polyethylene glycol 3350 (Miralax) 17 grams PO DAILY psyllium husk (with sugar) 3 gram/7 gram (Metamucil (with sugar)) 1 tbsp PO DAILY sucralfate (Carafate) 10 mL PO BID 14 days Do you need a note to return to daycare/school/sports/work: No HPI EST/right shoulder pain (lobby) HPI Details 63-year-old female presents to the [facility] for a sick visit. Patient is reporting right shoulder pain for the past 3 days. Does not recall any fall or injury. Pain is intermittent and associated with movement of the arm. [facility] Medical History URI (upper respiratory infection) Proteinuria Hematuria Left flank pain Excessive cerumen in right ear canal Infection of right ear Irritation of right eye Bleeding per rectum Blurring of vision Rash Postmenopausal bleeding Encounter to discuss test results COVID-19 virus infection Nasal congestion Headache Myalgia Abdominal cramping Underweight due to inadequate caloric intake Gastric inflammation Pain in right wrist Dysphagia Nausea Dysphagia Altered bowel habits Acid reflux Hard stool Abdominal pain Encounter for general adult medical examination with abnormal findings Postmenopausal vaginal bleeding Well woman exam with routine gynecological exam Ingrown toenail of left foot Toe infection Paronychia of great toe of left foot Paronychia of great toe of right foot Paronychia due to ingrown nail Paronychia History of COVID-19 Endocervical polyp GERD (gastroesophageal reflux disease) Arthritis of right wrist Scoliosis Hx of migraines History of iron deficiency anemia Surgical History Hx of esophagogastroduodenoscopy Hx of colonoscopy History of tonsillectomy Family History Father Diabetes mellitus Stomach cancer Mother HTN (hypertension) Afib Heart failure Maternal Grandfather CVD (cardiovascular disease) Maternal Grandmother Leukemia Paternal Grandfather Cancer Paternal Grandmother No problems noted. Brother No problems noted. Brother No problems noted. Brother No problems noted. Brother No problems noted. Brother No problems noted. Sister No problems noted. Sister No problems noted. Sister No problems noted. Social History Household Members: None Housing: Condominium Alcohol intake: former Patient Tobacco Use Status: Never used Tobacco e-Cigarette/Vaping Use: Never Used Current occupational status: unemployed Sexual orientation: Straight/Heterosexual Gender identity: Female Cognitive needs: No Hearing needs: No Vision needs: No Physical Exam Vital Signs: Last Vital Signs Temp 97.9 F 01/21/24 08:06 Pulse 78 01/21/24 08:06 BP 130/80 01/21/24 08:06 Pulse Ox 98 01/21/24 08:06 BMI result Body Mass Index 19.4 Extrem Other: Right shoulder: No AC joint tenderness. No visible bruising or swelling. Full range of motion including flexion, extension, adduction and abduction Assessment & Plan Assessment & Plan (1) Sprain of right shoulder: Code(s): S43.401A - Unspecified sprain of right shoulder joint, initial encounter Plan: Meloxicam called in. Apply a heating pad. If symptoms do not improve to follow-up here. Coding Level of Care Code Est Pt Level 3 (65769) Diagnoses Sprain of right shoulder S43.401A
[2024-01-21 08:06] VITALS: BP 130/80; PULSE 78; TEMP 36.6; O2SAT 98; BMI 19.4
== END 2024-01-21 08:28 | disposition home or self-care (01) ==
PROVIDERS: PCP Internal Medicine; Visit Provider Internal Medicine
DX: S43.401A Unspecified sprain of right shoulder joint, initial encounter (principal)
CPT/HCPCS: 99213

== ENCOUNTER 2024-01-25 09:16 | Outpatient (AMB) | payer OTHER, SELFPAY ==
[2024-01-25 10:28] VITALS: BP 128/78; PULSE 79; O2SAT 99; BMI 20.3
--- NOTE | 2024-01-25 10:28 | AM.OFFWIN_ITS ---
Intake Vital Signs 01/25/24 10:28 Height 5 ft 6 in Weight 126 lb BMI 20.3 BP 128/78 Blood Pressure Location Lt brachial Position Sitting Pulse 79 Pulse Source Pulse Oximeter Pulse Oximetry (%) 99 Oxygen Delivery Method Room Air Intake Visit Reasons: EP fragments in eyes (dentist visit yesterday) Intake Note: Patient went to dentist and thinks she got fragments in her eyes, she has an eye dr. appointment on Saturday, doesn't think she can wait that long. Patient Tobacco Use Status: Never used Tobacco Allergies No Known Allergies [No Known Allergies*] Allergy (Verified 01/25/24 11:04) Medication List - Last Reconciled 01/25/24 by Violet Peraza CNP acetaminophen 500 mg PO Q6H PRN cetirizine 10 mg PO DAILY docusate sodium (Colace) 100 mg PO BID hyoscyamine sulfate 0.125 mg PO BID-QID PRN meloxicam 15 mg PO DAILY pantoprazole 40 mg PO DAILY polyethylene glycol 3350 (Miralax) 17 grams PO DAILY psyllium husk (with sugar) 3 gram/7 gram (Metamucil (with sugar)) 1 tbsp PO DAILY sucralfate (Carafate) 10 mL PO BID 14 days Do you need a note to return to daycare/school/sports/work: No HPI HPI Comments History of Present Illness Details 63 year-old female presents to walk in [facility] for pain, discomfort, and gritty feeling of bilateral eyes after going to the Dentist this past Saturday. She thinks she got fragments in her eyes when she was at the dentists office on Saturday. She reports painful burning sensation of both eyes, with increased tearing. She denies blurry or changed vision, bleeding or discharge either eye, swelling of eyelids, or seeing any foreign object in either eye. She also denies fever, chills, CP, SOB, abdominal pain, nausea, vomiting, changes in bowels or bladder. [facility] Medical History URI (upper respiratory infection) Proteinuria Hematuria Left flank pain Excessive cerumen in right ear canal Infection of right ear Irritation of right eye Bleeding per rectum Blurring of vision Rash Postmenopausal bleeding Encounter to discuss test results COVID-19 virus infection Nasal congestion Headache Myalgia Abdominal cramping Underweight due to inadequate caloric intake Gastric inflammation Pain in right wrist Dysphagia Nausea Dysphagia Altered bowel habits Acid reflux Hard stool Abdominal pain Encounter for general adult medical examination with abnormal findings Postmenopausal vaginal bleeding Well woman exam with routine gynecological exam Ingrown toenail of left foot Toe infection Paronychia of great toe of left foot Paronychia of great toe of right foot Paronychia due to ingrown nail Paronychia History of COVID-19 Endocervical polyp GERD (gastroesophageal reflux disease) Arthritis of right wrist Scoliosis Hx of migraines History of iron deficiency anemia Surgical History Hx of esophagogastroduodenoscopy Hx of colonoscopy History of tonsillectomy Family History Father Diabetes mellitus Stomach cancer Mother HTN (hypertension) Afib Heart failure Maternal Grandfather CVD (cardiovascular disease) Maternal Grandmother Leukemia Paternal Grandfather Cancer Paternal Grandmother No problems noted. Brother No problems noted. Brother No problems noted. Brother No problems noted. Brother No problems noted. Brother No problems noted. Sister No problems noted. Sister No problems noted. Sister No problems noted. Social History Household Members: None Housing: Condominium Alcohol intake: former Patient Tobacco Use Status: Never used Tobacco e-Cigarette/Vaping Use: Never Used Current occupational status: unemployed Sexual orientation: Straight/Heterosexual Gender identity: Female Cognitive needs: No Hearing needs: No Vision needs: No Review of Systems Const All systems reviewed & are unremarkable except as noted in HPI and below Physical Exam Vital Signs: Last Vital Signs Pulse 79 01/25/24 10:28 BP 128/78 01/25/24 10:28 Pulse Ox 99 01/25/24 10:28 Oxygen Delivery Method Room Air 01/25/24 10:28 BMI result Body Mass Index 20.3 Const Other: General: cooperative, comfortable and no acute distress Orientation/consciousness: patient oriented x3 Eyes General: appearance normal, both eyes and all related structures Visual Atkinson: normal visual atkinson by confrontation Alignment and Position: alignment normal Periorbital: periorbital findings normal Eyelids: Yes eyelids normal Conjunctivae: conjunctivae normal Sclerae: scleral abnormal (Abrasion noted) Corneas: corneas abnormal on the right and left fluorescein used, abrasion diffuse and at the following clock position (10-11) and fluorescein used Pupils: Equal, round and reactive pupils present EOM: EOMs intact bilaterally Resp Effort & Inspection: normal respiratory effort Auscultation: clear to auscultation bilaterally Cardio Rate: regular rate Rhythm: regular rhythm Heart sounds: S1 normal heart sound present and S2 normal heart sound present Neuro General: patient oriented x3 Cranial nerves: Yes Equal, round and reactive pupils present Assessment & Plan Assessment & Plan (1) Corneal abrasion of both eyes: Code(s): S05.01XA - Injury of conjunctiva and corneal abrasion without foreign body, right eye, initial encounter; S05.02XA - Injury of conjunctiva and corneal abrasion without foreign body, left eye, initial encounter Qualifiers: Encounter type: initial encounter Qualified Code(s): S05.01XA - Injury of conjunctiva and corneal abrasion without foreign body, right eye, initial encounter; S05.02XA - Injury of conjunctiva and corneal abrasion without foreign body, left eye, initial encounter Plan: 63-year-old female seen today in office for bilateral eye irritation after going to the dentist on Saturday. She believes she may have gotten fragments in both eyes while having a tooth drilled at the dentist office on Saturday. I do not see any fragments in either eye even with use of Fluorescein. However noted with Fluorescein, bilateral diffuse corneal abrasions at the following clock position (10-11). Will treat with erythromycin 0.5 inch ophthalmic to eyelid bid Continue to f/u with eye doctors appointment on Saturday as scheduled. Return to office for worsening or unresolved pain and discomfort. Medications: New erythromycin 0.5 inches ophthalmic (eye) BID 5 days 3.5 grams 0RF S05.01XA - Injury of conjunctiva and corneal abrasion without foreign body, right eye, initial encounter, S05.02XA - Injury of conjunctiva and corneal abrasion without foreign body, left eye, initial encounter Coding Level of Care Code Est Pt Level 3 (82845) Diagnoses Bilateral corneal abrasions, initial encounter S05.01XA; S05.02XA Encounter type: initial encounter
== END 2024-01-25 11:16 | disposition home or self-care (01) ==
PROVIDERS: PCP Internal Medicine; Visit Provider Nurse Practitioner Acute Care
DX: S05.01XA Injury of conjunctiva and corneal abrasion without foreign body, right eye, initial encounter (principal); S05.02XA Injury of conjunctiva and corneal abrasion without foreign body, left eye, initial encounter
CPT/HCPCS: 99051; 99213

== ENCOUNTER 2024-01-28 13:45 | Outpatient (AMB) | payer OTHER, SELFPAY ==
[2024-01-28 13:49] VITALS: BP 122/72; PULSE 71; O2SAT 98; BMI 20.7
--- NOTE | 2024-01-28 13:49 | MHC.PC.OV ---
Vital Signs 01/28/24 13:49 Height 5 ft 6 in Weight 128 lb 2 oz BMI 20.7 BP 122/72 Blood Pressure Location Rt brachial Position Sitting Pulse 71 Pulse Source Pulse Oximeter Pulse Oximetry (%) 98 Oxygen Delivery Method Room Air Intake Visit Reasons: Annual PE~ Allergies No Known Allergies [No Known Allergies*] Allergy (Verified 01/28/24 13:49) Medication List - Last Reconciled 01/28/24 by Rosio Chandler MD acetaminophen 500 mg PO Q6H PRN cetirizine 10 mg PO DAILY hyoscyamine sulfate 0.125 mg PO BID-QID PRN meloxicam 15 mg PO DAILY pantoprazole 40 mg PO DAILY polyethylene glycol 3350 (Miralax) 17 grams PO DAILY Tobacco use date assessed: 01/28/24 Dental Screening Dental Screen Date: 01/28/24 Did you have a dental visit in the last 12 months?: Yes Did you have a dental problem in the last 6 months where you did not have access to dental care?: No Was dental information given to patient?: Patient has dentist HPI Annual PE~ HPI Details Patient is 63-year-old female came in today for physical examination Mammogram is up-to-date Colonoscopy was last year She is due for bone density, patient have osteopenia I would recommend weight-bearing exercises She continued to complain of lumbar pain I have ordered physical therapy for the patient, she may use back brace [id number] x-ray lumbar spine ordered Allergies are stable Patient is also on pantoprazole 40 mg for chronic GERD She is taking meloxicam only as needed Constipation is better with MiraLax Follow-up 4 months [facility] Medical History (Updated 01/28/24 @ 15:05 by Rosio Chandler MD) Encounter for general adult medical examination with abnormal findings URI (upper respiratory infection) Proteinuria Hematuria Left flank pain Excessive cerumen in right ear canal Infection of right ear Irritation of right eye Bleeding per rectum Blurring of vision Rash Postmenopausal bleeding Encounter to discuss test results COVID-19 virus infection Nasal congestion Headache Myalgia Abdominal cramping Underweight due to inadequate caloric intake Gastric inflammation Pain in right wrist Dysphagia Nausea Dysphagia Altered bowel habits Acid reflux Hard stool Abdominal pain Postmenopausal vaginal bleeding Well woman exam with routine gynecological exam Ingrown toenail of left foot Toe infection Paronychia of great toe of left foot Paronychia of great toe of right foot Paronychia due to ingrown nail Paronychia History of COVID-19 Endocervical polyp GERD (gastroesophageal reflux disease) Arthritis of right wrist Scoliosis Hx of migraines History of iron deficiency anemia Surgical History Hx of esophagogastroduodenoscopy Hx of colonoscopy History of tonsillectomy Family History Father Diabetes mellitus Stomach cancer Mother HTN (hypertension) Afib Heart failure Maternal Grandfather CVD (cardiovascular disease) Maternal Grandmother Leukemia Paternal Grandfather Cancer Paternal Grandmother No problems noted. Brother No problems noted. Brother No problems noted. Brother No problems noted. Brother No problems noted. Brother No problems noted. Sister No problems noted. Sister No problems noted. Sister No problems noted. Social History Household Members: None Housing: Condominium Alcohol intake: former Patient Tobacco Use Status: Never used Tobacco e-Cigarette/Vaping Use: Never Used Current occupational status: unemployed Sexual orientation: Straight/Heterosexual Gender identity: Female Cognitive needs: No Hearing needs: No Vision needs: No Questionnaire Thrive Questionnaire Date Thrive assessed: 12/25/22 AUDIT C Alcohol Use Questionnaire (AUDIT-C) 1. How often do you have a drink containing alcohol?: Never 3. How often do you have six or more drinks on one occasion?: Never Total Score: 0 Score Reviewed/Action Taken: Yes XOCHITL-7 AMB Questionnaire XOCHITL-7 Date XOCHITL - 7 assessed: 12/25/22 Source: Developed by Drs. Bassem Yousif, Bekah Delacruz, Curly Lim and colleagues, with an educational tiffany from [employer]. Review of Systems Const Denies chills, Denies fever(s) and Denies headache(s) Eyes Denies blurry vision ENT Denies headache(s), Denies nasal discharge, Denies nasal obstruction, Denies odynophagia and Denies sinus pain Card Denies chest pain at rest and Denies chest pain with activity Resp Denies cough and Denies hemoptysis GI Denies diarrhea, Denies odynophagia, Denies vomiting and Denies hematemesis Reports as per HPI Musc Denies abnormal gait Skin/Breast Reports as per HPI Neuro Denies Neuro-related abnormal movements, Denies Abnormal speech present, Denies abnormal gait, Denies headache(s) and Denies Sensory deficit (Neuro) Psych Denies mood swings and Denies paranoia Endo Reports as per HPI Jose M/Lymph Reports as per HPI Aller/Immun Reports as per HPI Physical exam (Primary Care) Vital Signs: Last Vital Signs Pulse 71 01/28/24 13:49 BP 122/72 01/28/24 13:49 Pulse Ox 98 01/28/24 13:49 Oxygen Delivery Method Room Air 01/28/24 13:49 BMI result Body Mass Index 20.7 Tobacco/Smoking Status: Tobacco use Status Tobacco use date assessed 01/28/24 01/28/24 13:57 Patient Tobacco Use Status Never used Tobacco 01/28/24 13:57 e-Cigarette/Vaping Use Never Used 01/28/24 13:57 Thrive Assessment: Date of Thrive Assessment Date Thrive assessed 12/25/22 01/28/24 13:57 Const General: cooperative, comfortable and no acute distress Orientation/consciousness: patient oriented x3 HENMT Head: Yes normocephalic and Yes atraumatic Eyes General: appearance normal, both eyes and all related structures Pupils: Equal, round and reactive pupils present EOM: EOMs intact bilaterally Neck Neck: Yes supple and No lymphadenopathy Thyroid: Thyroid normal Lymphatic: no lymphadenopathy noted Chest Breast/axilla palpation: normal palpation of the breasts Resp Effort & Inspection: normal respiratory effort and able to speak in complete sentences Auscultation: clear to auscultation bilaterally Cardio Heart sounds: S1 normal heart sound present and S2 normal heart sound present GI Palpation (GI): Soft to palpation and nontender Auscultation: normal bowel sounds General: Yes no CVA tenderness Back/Spine/Pelvis Back: no CVA tenderness Back/spine/pelvis image: 1. Pain located lumbar area, no pain with percussion, range of motion, straight leg negative both sides Skin General skin exam: elasticity normal and turgor normal Neuro General: patient oriented x3 and gait normal Cranial nerves: Yes Equal, round and reactive pupils present Speech: No Abnormal speech present Sensory Exam: No Sensory deficit (Neuro) Coordination: tandem gait normal and Romberg test negative Extrem General: Yes normal exam except as noted and No edema Assessment and Plan Assessment & Plan (1) Encounter for general adult medical examination with abnormal findings: Code(s): Z00.01 - Encounter for general adult medical examination with abnormal findings (2) Osteopenia: Code(s): M85.80 - Other specified disorders of bone density and structure, unspecified site Qualifiers: Osteopenia location: unspecified Qualified Code(s): M85.80 - Other specified disorders of bone density and structure, unspecified site (3) Lumbar pain: Code(s): M54.50 - Low back pain, unspecified (4) Constipation: Code(s): K59.00 - Constipation, unspecified Qualifiers: Constipation type: slow transit constipation Qualified Code(s): K59.01 - Slow transit constipation (5) Diverticulosis: Code(s): K57.90 - Diverticulosis of intestine, part unspecified, without perforation or abscess without bleeding (6) Chronic GERD: Code(s): K21.9 - Gastro-esophageal reflux disease without esophagitis Plan Patient is 63-year-old female came in today for physical examination Mammogram is up-to-date Colonoscopy was last year She is due for bone density, patient have osteopenia I would recommend weight-bearing exercises She continued to complain of lumbar pain I have ordered physical therapy for the patient, she may use back brace [id number] x-ray lumbar spine ordered Allergies are stable Patient is also on pantoprazole 40 mg for chronic GERD She is taking meloxicam only as needed Constipation is better with MiraLax Follow-up 4 months Orders: Orders PT Evaluation and Treatment Today M54.50 - Low back pain, unspecified XR DEXA axial skeleton Today M85.80 - Other specified disorders of bone density and structure, unspecified site XR lumbar spine 2-3V Today M54.50 - Low back pain, unspecified Coding Level of Care Code Est Pt Prev Care 40-64y(92470) Diagnoses Encounter for general adult medical examination with abnormal findings Z00.01 Osteopenia, unspecified location M85.80 Osteopenia location: unspecified Lumbar pain M54.50 Slow transit constipation K59.01 Constipation type: slow transit constipation Diverticulosis K57.90 Chronic GERD K21.9
== END 2024-01-28 14:19 | disposition home or self-care (01) ==
PROVIDERS: PCP Internal Medicine; Visit Provider Internal Medicine
DX: Z00.01 Encounter for general adult medical examination with abnormal findings (principal); M85.80 Other specified disorders of bone density and structure, unspecified site; M54.50 Low back pain, unspecified; K59.01 Slow transit constipation; K57.90 Diverticulosis of intestine, part unspecified, without perforation or abscess without bleeding; K21.9 Gastro-esophageal reflux disease without esophagitis
CPT/HCPCS: 99213; 99396

== ENCOUNTER 2024-01-28 14:22 | Outpatient (REF) | payer OTHER, SELFPAY ==
--- NOTE | ~2024-01-28 | XR_ITS ---
EXAMINATION: XR LUMBOSACRAL SPINE CLINICAL INFORMATION: Low back pain, unspecified COMPARISON: Lumbar spine 05/22/2017 TECHNIQUE: Three views of the lumbosacral spine. FINDINGS: Left convex lumbar scoliosis is again noted there 5 nonrib-bearing lumbar-type vertebral bodies. The height of the vertebral bodies is well-maintained. There is marked disc space narrowing with vacuum phenomenon, endplate sclerosis and marginal osteophytes are seen at L2-L3. There is also disc space narrowing at L4-L5. There is multilevel degenerative facet joint disease most notable at L4-L5 and L5-S1. There is mild retrolisthesis of L1 respect to L2. There is mild retrolisthesis of L3 with respect to L4. XR/XR lumbar spine 2-3V IMPRESSION: 1. Multilevel degenerative disc disease and degenerative facet joint disease, unchanged. 2. Multilevel spondylolisthesis, as described above. 3. Left convex lumbar scoliosis.
== END 2024-01-28 14:23 | disposition home or self-care (01) ==
LOC: HO.HMGCX 14:22
PROVIDERS: PCP Internal Medicine; Visit Provider Internal Medicine
DX: M54.50 Low back pain, unspecified (principal)
CPT/HCPCS: 72100

== ENCOUNTER 2024-02-11 11:47 | Outpatient (AMB) | payer OTHER, SELFPAY ==
[2024-02-11 11:48] VITALS: BP 130/80; PULSE 90; TEMP 36.3; O2SAT 97; BMI 20.8
--- NOTE | 2024-02-11 11:48 | AM.OFFWIN_ITS ---
Intake Vital Signs 02/11/24 11:48 Height 5 ft 6 in Weight 129 lb BMI 20.8 BP 130/80 Blood Pressure Location Lt brachial Position Sitting Pulse 90 Pulse Source Pulse Oximeter Temp 97.4 F Temp Source Temporal Artery Scan Pulse Oximetry (%) 97 Oxygen Delivery Method Room Air Intake Visit Reasons: EP Cow Bite Intake Note: pt is here today for cow bite started today Patient Tobacco Use Status: Never used Tobacco Allergies No Known Allergies [No Known Allergies*] Allergy (Verified 02/11/24 12:05) Medication List - Last Reconciled 02/11/24 by CALIN Robins acetaminophen 500 mg PO Q6H PRN cetirizine 10 mg PO DAILY hyoscyamine sulfate 0.125 mg PO BID-QID PRN polyethylene glycol 3350 (Miralax) 17 grams PO DAILY Do you need a note to return to daycare/school/sports/work: No HPI HPI Comments History of Present Illness Details Patient is a 63-year-old female in today for sick visit. The patient states that she was feeding a cow at a local farm and the cow he bit the tip of her finger. Patient believes that the bite was accidental because she was feeding a carrot and it looked like her finger. Patient has small scrape on the tip of her middle finger right hand. Not actively bleeding. Scrape is roughly 1/8 inch. Patient does not know when her last tetanus booster was, will give in office today. Will clean scrape, apply bacitracin ointment and bandage. Patient will be given prophylactic Augmentin [facility] Medical History Encounter for general adult medical examination with abnormal findings URI (upper respiratory infection) Proteinuria Hematuria Left flank pain Excessive cerumen in right ear canal Infection of right ear Irritation of right eye Bleeding per rectum Blurring of vision Rash Postmenopausal bleeding Encounter to discuss test results COVID-19 virus infection Nasal congestion Headache Myalgia Abdominal cramping Underweight due to inadequate caloric intake Gastric inflammation Pain in right wrist Dysphagia Nausea Dysphagia Altered bowel habits Acid reflux Hard stool Abdominal pain Postmenopausal vaginal bleeding Well woman exam with routine gynecological exam Ingrown toenail of left foot Toe infection Paronychia of great toe of left foot Paronychia of great toe of right foot Paronychia due to ingrown nail Paronychia History of COVID-19 Endocervical polyp GERD (gastroesophageal reflux disease) Arthritis of right wrist Scoliosis Hx of migraines History of iron deficiency anemia Surgical History Hx of esophagogastroduodenoscopy Hx of colonoscopy History of tonsillectomy Family History Father Diabetes mellitus Stomach cancer Mother HTN (hypertension) Afib Heart failure Maternal Grandfather CVD (cardiovascular disease) Maternal Grandmother Leukemia Paternal Grandfather Cancer Paternal Grandmother No problems noted. Brother No problems noted. Brother No problems noted. Brother No problems noted. Brother No problems noted. Brother No problems noted. Sister No problems noted. Sister No problems noted. Sister No problems noted. Social History Household Members: None Housing: Condominium Alcohol intake: former Patient Tobacco Use Status: Never used Tobacco e-Cigarette/Vaping Use: Never Used Current occupational status: unemployed Sexual orientation: Straight/Heterosexual Gender identity: Female Cognitive needs: No Hearing needs: No Vision needs: No Review of Systems Const Details: Constitutional : No Weight loss, No Fever, No Chills, No Fatigue, No Malaise ENT/Mouth : No sore throat, No Rhinorrhea Eyes: No Eye Pain, No Swelling, No Redness Cardiovascular : No Chest Pain, No SOB, No Dyspnea on Exertion, No Orthopnea, No Edema, No Palpitations Respiratory : No Cough, No Sputum, No Wheezing Gastrointestinal : No Nausea, No Vomiting, No Diarrhea, No Constipation, No abdominal Pain, No Hematochezia, No Melena Genitourinary : No Dysuria, No Urinary Frequency, No Hematuria, Musculoskeletal : No joint pain, No Myalgias, No Joint Swelling Skin : Admits small scrap on tip of middle finger right hand. Neuro : No Weakness, No Numbness, No Dizziness, No Headache Psych : No Anxiety/Panic, No Depression Heme/Lymph: No Bruising, No Bleeding,No Lymphadenopathy Endocrine : No Polyuria, No Polydipsia All other systems reviewed and are negative Physical Exam Vital Signs: Last Vital Signs Temp 97.4 F 02/11/24 11:48 Pulse 90 03/26/24 11:48 BP 130/80 02/11/24 11:48 Pulse Ox 97 02/11/24 11:48 Oxygen Delivery Method Room Air 02/11/24 11:48 BMI result Body Mass Index 20.8 Vital signs reviewed stable Assessment & Plan Assessment & Plan (1) Animal bite of finger: Comment: Patient had scraped clean, bacitracin ointment applied with bandage. Patient given Tdap booster in office today. Patient given Augmentin for prophylaxis treatment. Patient educated on signs of worsening symptoms when to report back to the walk-in or when to present to the ED Code(s): S61.259A - Open bite of unspecified finger without damage to nail, initial encounter Qualifiers: Encounter type: initial encounter Qualified Code(s): S61.259A - Open bite of unspecified finger without damage to nail, initial encounter Plan: Take your medications as prescribed. If you were prescribed antibiotics today, it is important that you take your medication to their entirety, do not skip any doses, do not finish them early. Follow-up with your primary care provider this week. Return to the emergency department with new or worsening symptoms. Such as fevers, chills, chest pain, shortness of breath, nausea, vomiting, dizziness, headache, vision changes, lethargy In case of emergency call 911 Plan Follow-up PCP Orders: Orders TDaP Immunization Today Z23 - Encounter for immunization Medications: New amoxicillin-pot clavulanate 875-125 mg 1 tab PO Q12H 6 tabs 0RF Coding Level of Care Code Est Pt Level 3 (70788) Diagnoses Animal bite of finger, initial encounter S61.259A Encounter type: initial encounter Time Spent (min) 23
== END 2024-02-11 15:01 | disposition home or self-care (01) ==
PROVIDERS: PCP Internal Medicine; Visit Provider Nurse Practitioner Primary Care
DX: S61.252A Open bite of right middle finger without damage to nail, initial encounter (principal)
CPT/HCPCS: 90471; 90715; 99213

== ENCOUNTER 2024-02-26 08:29 | Outpatient (REF) | payer OTHER, SELFPAY ==
--- NOTE | ~2024-02-26 | MM_ITS ---
EXAMINATION: BONE DENSITOMETRY CLINICAL INDICATION: Other specified disorders of bone density and structure, unspecified. COMPARISON: Baseline BD dated 04/07/2021. TECHNIQUE: Using a [employer] DXA System (software version: 13.1) manufactured by [employer], dual-energy x-ray absorptiometry was performed of the lumbar spine and left hip. The images are of good technical quality. Summary results are attached. FINDINGS: LEFT FEMUR, NECK: Current: BMD 0.733 g/cm2, Z-score -0.6, T-score -2.2, osteopenia. Baseline: BMD 0.720 g/cm2. LEFT FEMUR, TOTAL: Current: BMD 0.771 g/cm2, Z-score -0.6, T-score -1.9, osteopenia, 0.8% increase from baseline (<5% change is not significant). Baseline: BMD 0.765 g/cm2. AP SPINE L1-L4: Current: BMD 1.020 g/cm2, Z-score 0.4, T-score -1.3, osteopenia, 0.2% increase from baseline (<5% change is not significant). Baseline: BMD 1.022 g/cm2. IDENTIFIED RISK FACTORS: Menopause. HISTORY OF FRACTURE: None listed. MEDICATIONS: None listed. MM/XR DEXA axial skeleton IMPRESSION: 1. DIAGNOSIS: Osteopenia based on the lowest T-score value of -2.2 in the femoral neck applying World Health Organization criteria. 2. 10-YEAR FRACTURE RISK PREDICTION, FRAX: Major osteoporotic fracture (clinical spine, forearm, hip or shoulder) 9.9%. Hip fracture 1.7%. 3. Treatment Recommendations: NOF guidelines recommend consideration for treatment in postmenopausal women and men age 50 and older presenting with the following: -A hip or vertebral (clinical or morphometric) fracture. -T-score less than or equal to -2.5 at the femoral neck or spine after appropriate evaluation to exclude secondary causes. -Low bone mass at the hip or spine and a 10-year fracture probability by FRAX of greater than or equal to 3% for hip fracture or greater than or equal to 20% for major osteoporotic fracture based on the [place] adapted WHO algorithm. 4. Other Recommendations: All treatment decisions require clinical judgment and consideration of individual patient factors, including patient preferences, comorbidities, previous drug use, risk factors not captured in the FRAX model (e.g. frailty, falls, vitamin D deficiency, increased bone turnover, interval significant decline in bone density) and possible under or overestimation of fracture risk by FRAX. Additional medical evaluation for secondary cause of low bone mineral density may be appropriate. FUTURE SCAN RECOMMENDATION: People with diagnosed cases of osteoporosis or at high risk for fracture should have regular bone mineral density tests. For patients eligible for Medicare, routine testing is allowed once every 2 years. The testing frequency can be increased to one year for patients who have rapidly progressing disease, those who are receiving or discontinuing medical therapy to restore bone mass, or have additional risk factors.
== END 2024-02-26 08:30 | disposition home or self-care (01) ==
LOC: HO.MAMMO 08:29
PROVIDERS: PCP Internal Medicine; Visit Provider Internal Medicine
DX: Z13.820 Encounter for screening for osteoporosis (principal); Z78.0 Asymptomatic menopausal state; M85.80 Other specified disorders of bone density and structure, unspecified site
CPT/HCPCS: 77080

== ENCOUNTER 2024-03-10 12:20 | Outpatient (AMB) | payer OTHER, SELFPAY ==
[2024-03-10 12:25] VITALS: BP 128/70; PULSE 79; TEMP 36.3; O2SAT 96; BMI 20.7
--- NOTE | 2024-03-10 12:25 | AM.OFFWIN_ITS ---
Intake Vital Signs 03/10/24 12:25 Height 5 ft 6 in Weight 128 lb BMI 20.7 BP 128/70 Blood Pressure Location Lt brachial Position Sitting Pulse 79 Pulse Source Pulse Oximeter Temp 97.3 F Temp Source Temporal Artery Scan Pulse Oximetry (%) 96 Oxygen Delivery Method Room Air Intake Visit Reasons: EP dirt in rt eye Intake Note: pt is here today for dirt in rt eye started today Patient Tobacco Use Status: Never used Tobacco Allergies No Known Allergies [No Known Allergies*] Allergy (Verified 03/10/24 12:41) Do you need a note to return to daycare/school/sports/work: No HPI HPI Comments History of Present Illness Details 64-year-old female presents today compla ining of in her right eye after getting it splashed up while gardening. She had no change in her vision just irritated [facility] Medical History Encounter for general adult medical examination with abnormal findings URI (upper respiratory infection) Proteinuria Hematuria Left flank pain Excessive cerumen in right ear canal Infection of right ear Irritation of right eye Bleeding per rectum Blurring of vision Rash Postmenopausal bleeding Encounter to discuss test results COVID-19 virus infection Nasal congestion Headache Myalgia Abdominal cramping Underweight due to inadequate caloric intake Gastric inflammation Pain in right wrist Dysphagia Nausea Dysphagia Altered bowel habits Acid reflux Hard stool Abdominal pain Postmenopausal vaginal bleeding Well woman exam with routine gynecological exam Ingrown toenail of left foot Toe infection Paronychia of great toe of left foot Paronychia of great toe of right foot Paronychia due to ingrown nail Paronychia History of COVID-19 Endocervical polyp GERD (gastroesophageal reflux disease) Arthritis of right wrist Scoliosis Hx of migraines History of iron deficiency anemia Surgical History Hx of esophagogastroduodenoscopy Hx of colonoscopy History of tonsillectomy Family History Father Diabetes mellitus Stomach cancer Mother HTN (hypertension) Afib Heart failure Maternal Grandfather CVD (cardiovascular disease) Maternal Grandmother Leukemia Paternal Grandfather Cancer Paternal Grandmother No problems noted. Brother No problems noted. Brother No problems noted. Brother No problems noted. Brother No problems noted. Brother No problems noted. Sister No problems noted. Sister No problems noted. Sister No problems noted. Social History Household Members: None Housing: Condominium Alcohol intake: former Patient Tobacco Use Status: Never used Tobacco e-Cigarette/Vaping Use: Never Used Current occupational status: unemployed Sexual orientation: Straight/Heterosexual Gender identity: Female Cognitive needs: No Hearing needs: No Vision needs: No Review of Systems Const All systems reviewed & are unremarkable except as noted in HPI and below Eyes Reports no additional complaints Physical Exam Vital Signs: Last Vital Signs Temp 97.3 F 03/10/24 12:25 Pulse 79 03/10/24 12:25 BP 128/70 03/10/24 12:25 Pulse Ox 96 03/10/24 12:25 Oxygen Delivery Method Room Air 03/10/24 12:25 BMI result Body Mass Index 20.7 Const General: healthy appearing HEENT Head: Yes normal to inspection, Yes normocephalic and Yes atraumatic Ears: hearing grossly normal bilaterally General nose exam: Normal external nose present Face and sinus: Yes normal facial exam Eyes Visual Atkinson: normal visual atkinson by confrontation Alignment and Position: alignment normal Periorbital: periorbital findings normal Eyelids: Yes eyelids normal Conjunctivae: conjunctival abnormal (Injected) right Sclerae: sclerae normal Corneas: corneas normal Pupils: Equal, round and reactive pupils present EOM: EOMs intact bilaterally Direct Ophthalmoscopy: normal light reflex Neuro Cranial nerves: Yes Equal, round and reactive pupils present Assessment & Plan Assessment & Plan (1) Foreign body in eye: Code(s): T15.90XA - Foreign body on external eye, part unspecified, unspecified eye, initial encounter Plan: opthalmic ointment ordered. f/u with optho if needed Plan see plan Medications: New erythromycin 1 appl ophthalmic (eye) TID 3.5 grams 0RF Coding Level of Care Code Est Pt Level 3 (94920) Diagnoses Foreign body in eye T15.90XA
== END 2024-03-10 14:02 | disposition home or self-care (01) ==
PROVIDERS: PCP Internal Medicine; Visit Provider Physician Assistant Medical
DX: T15.90XA Foreign body on external eye, part unspecified, unspecified eye, initial encounter (principal)
CPT/HCPCS: 99213

== ENCOUNTER 2024-03-12 10:00 | Outpatient (RCR) | payer OTHER, SELFPAY ==
--- NOTE | 2024-02-03 11:50 | MHC.PT.EP ---
[facility] [place] [facility] [place] [facility] [place] [facility] [address] Leandra Grady [address] [phone] F: [phone] F: [phone] F: [phone] F: [phone] Physical Therapy Plan of Care Date of Evaluation: 02/03/24 Date of Surgery: Diagnosis: LBP Assessment: 63 y/o female referred to PT with LBP resulting in pain and difficulty with lifting, walking > 10 min, gardening, and sitting prolonged periods secondary to decreased lumbar AROM, scoliosis, decreased core/ hip strength, impaired gait pattern, and pain. Recommend PT 2x/week for 4 weeks to address impairments, implement HEP, and optimize functional mobility. Frequency and Duration: The patient will be seen 2x/week for 4 weeks Short Term Goals: 3 weeks I with HEP Prison Goals: 5 weeks I with HEP and self management of sx Pt will demonstrate 4/5 hip strength to faciliate gardening tasks Pt will be able to ambulate > 15min with pain < 3/10 Treatment Plan: Modalities to reduce pain, spasms and effusion. Manual therapy to restore motion and function. Therapeutic exercise to improve strength and flexibility. Neuromuscular re-education for posture and balance. Therapeutic activities to return to functional activities of daily living. Electronically signed by: Inez Murcia PT Please sign and return to therapist. Thank you for your referral.
--- NOTE | 2024-04-10 09:31 | MHC.PT.DC ---
[facility] [place] Office [place] Office [place] Office [address] Leandra Grady [address] [phone] F: [phone] F: [phone] F: [phone] F: [phone] Physical Therapy Discharge Report Diagnosis: LBP Date of Surgery: Date of Evaluation: 02/03/24 Date of Discharge: 04/10/24 Treatments to Date: 11 Cancellations to Date: 0 No Shows to Date: 0 Discharge Status: Improved Function Independent with HEP Discharge Summary: Pt is I with HEP and appropriate for d/c. Reviewed importance of checking pre-exercise position when doing HEP to facilitate form independently. Pt reports able to ambulate 15-20 minutes now. No further questions at this time. Electronically signed by: Inez Murcia PT Please sign and return to therapist. Thank you for your referral.
== END 2024-04-10 09:32 | disposition home or self-care (01) ==
LOC: HO.PTCHIC 10:00
PROVIDERS: PCP Internal Medicine; Visit Provider Internal Medicine
DX: M54.50 Low back pain, unspecified (principal)
CPT/HCPCS: 97110; 97140; 97162

== ENCOUNTER 2024-03-17 08:33 | Outpatient (AMB) | payer OTHER, SELFPAY ==
--- NOTE | 2024-03-17 08:34 | MHC.OFFVIS ---
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 The patient is complaining of an episode of spotting last week Last Pap/HPV was negative in 02/06 Last Mammogram was BI-RADS 1 in 01/11 Last Colonoscopy was done in 05/10, the recommendation was to repeat in 10 years [facility] Medical History (Updated 03/17/24 @ 08:54 by Baljit Sawyer MD) Encounter for general adult medical examination with abnormal findings URI (upper respiratory infection) Proteinuria Hematuria Left flank pain Excessive cerumen in right ear canal Infection of right ear Irritation of right eye Bleeding per rectum Blurring of vision Rash Postmenopausal bleeding Encounter to discuss test results COVID-19 virus infection Nasal congestion Headache Myalgia Abdominal cramping Underweight due to inadequate caloric intake Gastric inflammation Pain in right wrist Dysphagia Nausea Dysphagia Altered bowel habits Acid reflux Hard stool Abdominal pain Postmenopausal vaginal bleeding Well woman exam with routine gynecological exam Ingrown toenail of left foot Toe infection Paronychia of great toe of left foot Paronychia of great toe of right foot Paronychia due to ingrown nail Paronychia History of COVID-19 Endocervical polyp GERD (gastroesophageal reflux disease) Arthritis of right wrist Scoliosis Hx of migraines History of iron deficiency anemia Surgical History Hx of esophagogastroduodenoscopy Hx of colonoscopy History of tonsillectomy Family History Father Diabetes mellitus Stomach cancer Mother HTN (hypertension) Afib Heart failure Maternal Grandfather CVD (cardiovascular disease) Maternal Grandmother Leukemia Paternal Grandfather Cancer Paternal Grandmother No problems noted. Brother No problems noted. Brother No problems noted. Brother No problems noted. Brother No problems noted. Brother No problems noted. Sister No problems noted. Sister No problems noted. Sister No problems noted. Social History Household Members: None Housing: Condominium Alcohol intake: former Patient Tobacco Use Status: Never used Tobacco e-Cigarette/Vaping Use: Never Used Current occupational status: unemployed Sexual orientation: Straight/Heterosexual Gender identity: Female Cognitive needs: No Hearing needs: No Vision needs: No Female Reproductive History Menstrual Total pregnancies: 0 Date of last pap smear: 02/08/22 Date of Mammogram: 12/23/23 Date of last Bone Density Screenin02/26/24 Review of Systems Const All systems reviewed & are unremarkable except as noted in HPI and below Card Reports as per HPI Resp Reports as per HPI GI Reports as per HPI and Reports no additional complaints Reports as per HPI Physical Exam Vital Signs: BMI result Body Mass Index 20.6 Const General: cooperative, healthy appearing and comfortable Chest Chest palpation & inspection: normal inspection of the chest and normal palpation of entire chest wall Breast/axilla inspection: normal inspection of the breasts and normal inspection of the axillae Breast/axilla palpation: normal palpation of the breasts, normal palpation of the axillae and no axillary lymphadenopathy Resp Effort & Inspection: normal respiratory effort Auscultation: clear to auscultation bilaterally Percussion: percussion normal Cardio Palpation: normal PMI Rate: regular rate Rhythm: regular rhythm Heart sounds: no murmurs and no rubs Peripheral pulses: Peripheral pulses 2+ throughout GI Inspection: Yes normal to inspection Palpation (GI): Soft to palpation, nontender, no guarding, not rigid and No hepatosplenomegaly present Percussion: Yes normal to percussion Auscultation: normal bowel sounds Rectal Exam - Female: deferred General: Yes bladder normal to palpation External Female Exam: No lesion Speculum Exam - Vagina: normal appearance of the vagina, normal palpation, normal vaginal discharge and not erythematous Speculum Exam - Cervix: normal appearance of the cervix and normal palpation Bimanual exam- vagina & uterus: normal bimanual exam, normal palpation, uterine size normal, bladder normal to palpation, consistency normal and normal palpation Bimanual Exam- Adnexa, other: normal adnexae, no masses and no tenderness Assessment & Plan Assessment & Plan (1) Well woman exam: Code(s): Z01.419 - Encounter for gynecological examination (general) (routine) without abnormal findings Category: Medical Plan: Co testing not indicated this year. Counseled the patient about the recommended dietary allowance of 1200 mg of Calcium & 600 IU of vitamin D. Instructions given to patient to schedule next screening Mammogram in 01/12. The patient was instructed to perform monthly self-breast exams and schedule annual exam in a year. All questions answered and the patient verbalized understanding. (2) Postmenopausal bleeding: Code(s): N95.0 - Postmenopausal bleeding Category: Medical Plan: Discussed with the patient the differential diagnosis of post menopausal bleeding with normal pelvic exam including but not limited to, endometrial hyperplasia, cancer, polyps and other causes; recommended ultrasound to measure the endometrial stripe; discussed with the patient that if the endometrial thickness is 4 mm or less the negative predictive value of endometrial pathology is 99%, otherwise If endometrial thickness is more than 4 mm will proceed with endometrial sampling versus hysteroscopy D&C polypectomy depending on the ultrasound findings. Instructed the patient to schedule an ultrasound follow-up appointment in 2 weeks. All questions answered, the patient verbalized understanding and agreed with the plan. Orders: Orders US pelvic and transvaginal Today N95.0 - Postmenopausal bleeding Coding Level of Care Code Est Pt Prev Care 40-64y(50815) Diagnoses Well woman exam Z01.419 Postmenopausal bleeding N95.0
[2024-03-17 08:36] VITALS: BMI 20.6
== END 2024-03-17 09:05 | disposition home or self-care (01) ==
LOC: HO.HWS 08:33
PROVIDERS: PCP Internal Medicine; Visit Provider Obstetrics & Gynecology
DX: Z01.419 Encounter for gynecological examination (general) (routine) without abnormal findings (principal); N95.0 Postmenopausal bleeding
CPT/HCPCS: 99396

== ENCOUNTER → 2024-03-17 08:33 | Outpatient (BNVA) | payer OTHER, SELFPAY | PROVIDERS: PCP Internal Medicine; Visit Provider Obstetrics & Gynecology | DX: Z01.419 Encounter for gynecological examination (general) (routine) without abnormal findings (principal); N95.0 Postmenopausal bleeding | CPT/HCPCS: 99396 ==

== ENCOUNTER 2024-03-24 13:39 | Outpatient (REF) | payer OTHER, SELFPAY ==
--- NOTE | ~2024-03-24 | US_ITS ---
EXAMINATION: US PELVIS CLINICAL INFORMATION: Postmenopausal bleeding. COMPARISON: CT abdomen and pelvis 10/23/2023. Pelvic ultrasound 03/02/2022. TECHNIQUE: Ultrasound of the pelvis is performed using both transabdominal and transvaginal transducers along with Doppler. Transvaginal imaging is performed due to inadequate visualization transabdominally. FINDINGS: The uterus is retroverted, with left-sided tilt and measures 6.1 x 3.0 x 4.2 cm. Endometrial thickness is 3 mm. Severely limited visualization on transabdominal and transvaginal ultrasound images due to uterine retropositioning and left-sided tilt as well as hyperperistalsing bowel. Right ovary measures 2.5 x 1.3 x 1.0 cm, volume 1.6 mL, and was seen only on limited transabdominal ultrasound images. Left ovary measures 1.9 x 0.9 x 1.3 cm, volume 1.6 mL. Limited visualization of the left ovary. No significant free fluid in the pelvis. US/US pelvic and transvaginal IMPRESSION: Severely limited visualization on transabdominal and transvaginal ultrasound images due to uterine retropositioning and left-sided tilt as well as hyperperistalsing bowel. Visualized segment of endometrium with thickness of 3 mm. Bilateral grossly unremarkable adnexa on limited images.
== END 2024-03-24 13:40 | disposition home or self-care (01) ==
LOC: HO.HMGCX 13:39
PROVIDERS: PCP Internal Medicine; Visit Provider Obstetrics & Gynecology
DX: N95.0 Postmenopausal bleeding (principal)
CPT/HCPCS: 76830; 76856

== ENCOUNTER 2024-05-19 09:35 | Outpatient (AMB) | payer OTHER, SELFPAY ==
[2024-05-19 09:41] VITALS: BP 120/80; PULSE 72; O2SAT 97; BMI 20.3
--- NOTE | 2024-05-19 09:41 | MHC.PC.OV ---
Vital Signs 05/19/24 09:41 Height 5 ft 6 in Weight 125 lb 8 oz BMI 20.3 BP 120/80 Blood Pressure Location Rt brachial Position Sitting Pulse 72 Pulse Source Pulse Oximeter Pulse Oximetry (%) 97 Oxygen Delivery Method Room Air Intake Visit Reasons: 4M F/U PT/Back Allergies No Known Allergies [No Known Allergies*] Allergy (Verified 05/19/24 09:42) Medication List - Last Reconciled 05/19/24 by Rosio Chandler MD No Known Home Meds Tobacco use date assessed: 05/19/24 Dental Screening Dental Screen Date: 05/19/24 Did you have a dental visit in the last 12 months?: No Did you have a dental problem in the last 6 months where you did not have access to dental care?: No Was dental information given to patient?: Patient has dentist HPI 4M F/U PT/Back HPI Details Patient is 64-year-old female came in today for regular follow-up Patient had bone density done February of this year which shows osteopenia We talked about weight-bearing exercises and eating calcium rich foods She has appointment coming up with the gastroenterology for follow-up Patient offer no new complaints Vital signs are stable She has appointment for physical exam scheduled for January of next year. [facility] Medical History Encounter for general adult medical examination with abnormal findings URI (upper respiratory infection) Proteinuria Hematuria Left flank pain Excessive cerumen in right ear canal Infection of right ear Irritation of right eye Bleeding per rectum Blurring of vision Rash Postmenopausal bleeding Encounter to discuss test results COVID-19 virus infection Nasal congestion Headache Myalgia Abdominal cramping Underweight due to inadequate caloric intake Gastric inflammation Pain in right wrist Dysphagia Nausea Dysphagia Altered bowel habits Acid reflux Hard stool Abdominal pain Postmenopausal vaginal bleeding Well woman exam with routine gynecological exam Ingrown toenail of left foot Toe infection Paronychia of great toe of left foot Paronychia of great toe of right foot Paronychia due to ingrown nail Paronychia History of COVID-19 Endocervical polyp GERD (gastroesophageal reflux disease) Arthritis of right wrist Scoliosis Hx of migraines History of iron deficiency anemia Surgical History Hx of esophagogastroduodenoscopy Hx of colonoscopy History of tonsillectomy Family History Father Diabetes mellitus Stomach cancer Mother HTN (hypertension) Afib Heart failure Maternal Grandfather CVD (cardiovascular disease) Maternal Grandmother Leukemia Paternal Grandfather Cancer Paternal Grandmother No problems noted. Brother No problems noted. Brother No problems noted. Brother No problems noted. Brother No problems noted. Brother No problems noted. Sister No problems noted. Sister No problems noted. Sister No problems noted. Social History Household Members: None Housing: Condominium Alcohol intake: former Patient Tobacco Use Status: Never used Tobacco e-Cigarette/Vaping Use: Never Used Current occupational status: unemployed Sexual orientation: Straight/Heterosexual Gender identity: Female Cognitive needs: No Hearing needs: No Vision needs: No Questionnaire PHQ-9 Over the last 2 weeks, how often have you been bothered by any of the following problems? 1. Little interest or pleasure in doing things: not at all 2. Feeling down, depressed, or hopeless: not at all 3. Trouble falling or staying asleep, or sleeping too much: not at all 4. Feeling tired or having little energy: not at all 5. Poor appetite or overeating: not at all 6. Feeling bad about yourself - or that you are a failure or have let yourself or your family down: not at all 7. Trouble concentrating on things, such as reading the newspaper or watching television: not at all 8. Moving or speaking so slowly that other people could have noticed. Or the opposite - being so fidgety or restless that you have been moving around a lot more than usual: not at all 9. Thoughts that you would be better off or of hurting yourself in some way: not at all Total score: 0 Depression Screening Interpretation: Negative Depression Screening Done: Yes 01023 - PHQ-9 Billing: Yes Source: Developed by Drs. Bassem Yousif, Bekah Delacruz, Curly Lim and colleagues, with an educational tiffany from [employer]. Thrive Questionnaire Date Thrive assessed: 05/19/24 I am a: Patient What is your living situation today?: I have a steady place to live Within the past 12 months, did the food you bought not last and you didn't have the money to get more?: Never true Within the past 12 months, did you worry whether your food would run out before you got money to buy more?: Never true Do you have trouble paying for medicines?: No Do you have trouble getting transportation to medical appointments?: No Do you have trouble paying your heating and electricity bill?: No Do you have trouble taking care of your child, family member or friend?: No Do you have trouble with day-to-day activities such as bathing, preparing meals, shopping, managing finances, etc.?: No Are you currently unemployed and looking for a job?: No Are you interested in more education?: No Please select the resources that you would like help with: None Currently or been in a relationship where the following occur: No concerns reported THRIVE Score: 0 AUDIT C Alcohol Use Questionnaire (AUDIT-C) 1. How often do you have a drink containing alcohol?: Never 3. How often do you have six or more drinks on one occasion?: Never Total Score: 0 Score Reviewed/Action Taken: Yes XOCHITL-7 AMB Questionnaire XOCHITL-7 Date XOCHITL - 7 assessed: 05/19/24 Feeling nervous, anxious, or on edge: 0 = Not at all Not being able to stop or control worryin = Not at all Worrying too much about different things: 0 = Not at all Trouble relaxin = Not at all Being so restless that it is hard to sit still: 0 = Not at all Becoming easily annoyed or irritable: 0 = Not at all Feeling afraid as if something awful might happen: 0 = Not at all Total XOCHITL-7 score (0-4 normal; 5-9 mild; 10-14 moderate; 15-21 severe): 0 Source: Developed by Drs. Bassem Yousif, Bekah Delacruz, Curly Lim and colleagues, with an educational tiffany from [employer]. XOCHITL-7 Assessment Billing XOCHITL-7 Assessment Tool: XOCHITL-7 Assessment 56978 Review of Systems Const Denies chills and Denies fever(s) ENT Denies epistaxis and Denies nasal discharge Card Denies chest pain Resp Denies chest congestion, Denies cough and Denies hemoptysis GI Denies diarrhea and Denies nausea Skin/Breast Denies rash Neuro Reports no additional complaints Psych Reports no additional complaints Endo Reports no additional complaints Physical exam (Primary Care) Vital Signs: Last Vital Signs Pulse 72 05/19/24 09:41 BP 120/80 05/19/24 09:41 Pulse Ox 97 05/19/24 09:41 Oxygen Delivery Method Room Air 05/19/24 09:41 BMI result Body Mass Index 20.3 Tobacco/Smoking Status: Tobacco use Status Tobacco use date assessed 05/19/24 05/19/24 09:44 Patient Tobacco Use Status Never used Tobacco 05/19/24 09:44 e-Cigarette/Vaping Use Never Used 05/19/24 09:44 Depression Screening Interpretation: Negative Thrive Assessment: Date of Thrive Assessment Date Thrive assessed 12/25/22 05/19/24 09:44 Currently or been in a relationship where the following occur: No concerns reported Const General: cooperative, comfortable and no acute distress Orientation/consciousness: patient oriented x3 HENMT Head: Yes normocephalic Eyes General: appearance normal, both eyes and all related structures Neck Neck: Yes supple Resp Effort & Inspection: normal respiratory effort, no cough and no stridor Cardio Rhythm: regular rhythm Heart sounds: S1 normal heart sound present and S2 normal heart sound present Skin General skin exam: turgor normal Neuro General: patient oriented x3, tone normal and moves all extremities Extrem Right lower extremity: no edema Left lower extremity: no edema Assessment and Plan Assessment & Plan (1) Osteopenia: Code(s): M85.80 - Other specified disorders of bone density and structure, unspecified site Qualifiers: Osteopenia location: unspecified Qualified Code(s): M85.80 - Other specified disorders of bone density and structure, unspecified site Plan Patient is 64-year-old female came in today for regular follow-up Patient had bone density done February of this year which shows osteopenia We talked about weight-bearing exercises and eating calcium rich foods She has appointment coming up with the gastroenterology for follow-up Patient offer no new complaints Vital signs are stable She has appointment for physical exam scheduled for January of next year Coding Level of Care Code Est Pt Level 3 (58874) Diagnoses Osteopenia, unspecified location M85.80 Osteopenia location: unspecified Additional Codes XOCHITL-7 Assessment Billing - XOCHITL-7 Assessment Tool: XOCHITL-7 Assessment [id number] ([id number])
== END 2024-05-19 10:44 | disposition home or self-care (01) ==
PROVIDERS: PCP Internal Medicine; Visit Provider Internal Medicine
DX: M85.80 Other specified disorders of bone density and structure, unspecified site (principal)
CPT/HCPCS: 99213

== ENCOUNTER 2024-05-25 09:16 | Outpatient (AMB) | payer OTHER, SELFPAY ==
--- NOTE | 2024-05-25 09:27 | A.OFFVIS_ITS ---
Vital Signs 05/25/24 09:32 Height 5 ft 6 in Weight 124 lb 12.506 oz BMI 20.1 BP 129/78 Blood Pressure Location Lt brachial Position Sitting Pulse 73 Intake Visit Reasons: 1 yr follow up Intake Note: Tammi presents in the office as a follow up CC: States she is trying to get more fiber in her diet - she states she has been eating better. She has constipation that she will take a laxative for and it helps her. She states she only takes it when she needs it - not often. Allergies No Known Allergies [No Known Allergies*] Allergy (Verified 05/25/24 09:32) HPI HPI 1 yr follow up: Details: 63 yr old f being seen for f/u RECAP: Initial visit: She had been having 2 yrs hx of mild to mdoerate persistent lower abdominal cramps, when seen before can be relieved with passing gas or stool, blood in stool as well describes tenesmus and incomplete evacuation, urgency with stool she denied diarrhea, occ constipation with bloating likes dairy thomas yoghurt occ feels solids getting stick in throat and has to cough back up she had stress and anxiety but mild, has good sleep TESTS: Pelvic US 11/2020---no masses, small cervical polyp colonoscopy 2018--excellent prep, wide mouthed divertculosis, polyps removed--hyperplastic, hemorrhoids, grade II EGD/colonoscopy: 05/18/21--balloon dilation as well Endoscopy Findings: gastritis Colonoscopy Findings: internal hemorrhoids diverticular disease BX: moderate chronic inflammation at GEJ, and gastritis Repeat EGD/colonoscopy: 04/2023 Endoscopy Findings: esophagitis gastritis balloon dilation was also done Colonoscopy Findings: internal hemorrhoids diverticular disease CT in ED-- scolisois, 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 VITAL SIGNS:see workflow HEENT: Nonicteric sclerae, PERRLA, EOMI. Oropharynx clear. Moist mucous membranes. Conjunctivae appear well perfused. No thyroid mass. CHEST: Chest wall is nontender. HEART: Regular rate and rhythm without murmurs. LUNGS: Clear to auscultation bilaterally. ABDOMEN: Soft, positive bowel sounds, tender both lower quadrants, no organomegaly.no flank tenderness SKIN: No rash, no excessive bruising, petechiae, or purpura. NEUROLOGIC: Cranial nerves II-XII intact without motor/sensory deficit. psych--nml MS: scoliosis A/P: 1/ Constipation, much better with fiber and miralax, increased fluids as well PLAN: 1/ Cont with high fiber diet, fluids, and miralax, if any worsening call office f/u `[facility] Medical History Encounter for general adult medical examination with abnormal findings URI (upper respiratory infection) Proteinuria Hematuria Left flank pain Excessive cerumen in right ear canal Infection of right ear Irritation of right eye Bleeding per rectum Blurring of vision Rash Postmenopausal bleeding Encounter to discuss test results COVID-19 virus infection Nasal congestion Headache Myalgia Abdominal cramping Underweight due to inadequate caloric intake Gastric inflammation Pain in right wrist Dysphagia Nausea Dysphagia Altered bowel habits Acid reflux Hard stool Abdominal pain Postmenopausal vaginal bleeding Well woman exam with routine gynecological exam Ingrown toenail of left foot Toe infection Paronychia of great toe of left foot Paronychia of great toe of right foot Paronychia due to ingrown nail Paronychia History of COVID-19 Endocervical polyp GERD (gastroesophageal reflux disease) Arthritis of right wrist Scoliosis Hx of migraines History of iron deficiency anemia Surgical History Hx of esophagogastroduodenoscopy Hx of colonoscopy History of tonsillectomy Family History Father Diabetes mellitus Stomach cancer Mother HTN (hypertension) Afib Heart failure Maternal Grandfather CVD (cardiovascular disease) Maternal Grandmother Leukemia Paternal Grandfather Cancer Paternal Grandmother No problems noted. Brother No problems noted. Brother No problems noted. Brother No problems noted. Brother No problems noted. Brother No problems noted. Sister No problems noted. Sister No problems noted. Sister No problems noted. Social History Household Members: None Housing: Condominium Alcohol intake: former Patient Tobacco Use Status: Never used Tobacco e-Cigarette/Vaping Use: Never Used Current occupational status: unemployed Sexual orientation: Straight/Heterosexual Gender identity: Female Cognitive needs: No Hearing needs: No Vision needs: No Physical Exam Vital Signs: Last Vital Signs Pulse 73 05/25/24 09:32 BP 129/78 05/25/24 09:32 BMI result Body Mass Index 20.1 Assessment & Plan Assessment & Plan (1) Constipation by delayed colonic transit: Code(s): K59.01 - Slow transit constipation Category: Medical Plan: see above Coding Level of Care Code Est Pt Level 3 (33346) Diagnoses Constipation by delayed colonic transit K59.01
[2024-05-25 09:32] VITALS: BP 129/78; PULSE 73; BMI 20.1
== END 2024-05-25 10:33 | disposition home or self-care (01) ==
PROVIDERS: PCP Internal Medicine; Visit Provider Internal Medicine Gastroenterology
DX: K59.01 Slow transit constipation (principal)
CPT/HCPCS: 99213

== ENCOUNTER → 2024-05-25 09:16 | Outpatient (BNVA) | payer OTHER, SELFPAY | PROVIDERS: PCP Internal Medicine; Visit Provider Internal Medicine Gastroenterology | DX: K59.01 Slow transit constipation (principal) | CPT/HCPCS: 99212 ==

== ENCOUNTER 2024-07-27 08:05 | Outpatient (AMB) | payer OTHER, SELFPAY ==
--- NOTE | 2024-07-27 08:06 | MHC.OFFWIV ---
Intake Vital Signs 07/27/24 08:07 Height 5 ft 6 in Weight 130 lb BMI 21.0 BP 116/78 Blood Pressure Location Rt brachial Position Sitting Pulse 78 Pulse Source Pulse Oximeter Temp 98.6 F Temp Source Oral Pulse Oximetry (%) 98 Oxygen Delivery Method Room Air Intake Visit Reasons: EP-Headaches Intake Note: pt c/o headaches. Started . Also feeling fatigued. Patient Tobacco Use Status: Never used Tobacco Allergies No Known Allergies [No Known Allergies*] Allergy (Verified 07/27/24 08:06) Do you need a note to return to daycare/school/sports/work: No HPI HPI Comments History of Present Illness Details Patient is a 64-year-old female complaining of 4 days of a headache that does not seem to go away. She states she has been taking 500 mg of Tylenol in the morning and 500 mg of Tylenol in the evening with minimal improvement in her headache. She also states she has some right ear fullness, fatigue and chills. She states she has tried using some [id number] medication for her wax in her ear but she has been unsuccessful in getting it out, she can tell it is still in there because it is uncomfortable, not painful, she denies any change in her hearing. [facility] Medical History (Updated 07/27/24 @ 08:28 by Milena Ambrocio PA-C) Headache Encounter for general adult medical examination with abnormal findings URI (upper respiratory infection) Proteinuria Hematuria Left flank pain Excessive cerumen in right ear canal Infection of right ear Irritation of right eye Bleeding per rectum Blurring of vision Rash Postmenopausal bleeding Encounter to discuss test results COVID-19 virus infection Nasal congestion Myalgia Abdominal cramping Underweight due to inadequate caloric intake Gastric inflammation Pain in right wrist Dysphagia Nausea Dysphagia Altered bowel habits Acid reflux Hard stool Abdominal pain Postmenopausal vaginal bleeding Well woman exam with routine gynecological exam Ingrown toenail of left foot Toe infection Paronychia of great toe of left foot Paronychia of great toe of right foot Paronychia due to ingrown nail Paronychia History of COVID-19 Endocervical polyp GERD (gastroesophageal reflux disease) Arthritis of right wrist Scoliosis Hx of migraines History of iron deficiency anemia Surgical History Hx of esophagogastroduodenoscopy Hx of colonoscopy History of tonsillectomy Family History Father Diabetes mellitus Stomach cancer Mother HTN (hypertension) Afib Heart failure Maternal Grandfather CVD (cardiovascular disease) Maternal Grandmother Leukemia Paternal Grandfather Cancer Paternal Grandmother No problems noted. Brother No problems noted. Brother No problems noted. Brother No problems noted. Brother No problems noted. Brother No problems noted. Sister No problems noted. Sister No problems noted. Sister No problems noted. Social History Household Members: None Housing: Condominium Alcohol intake: former Patient Tobacco Use Status: Never used Tobacco e-Cigarette/Vaping Use: Never Used Current occupational status: unemployed Sexual orientation: Straight/Heterosexual Gender identity: Female Cognitive needs: No Hearing needs: No Vision needs: No Review of Systems Const All systems reviewed & are unremarkable except as noted in HPI and below Physical Exam Vital Signs: Last Vital Signs Temp 98.6 F 07/27/24 08:07 Pulse 78 07/27/24 08:07 BP 116/78 07/27/24 08:07 Pulse Ox 98 07/27/24 08:07 Oxygen Delivery Method Room Air 07/27/24 08:07 BMI result Body Mass Index 21.0 Const General: cooperative, healthy appearing, comfortable and no acute distress Orientation/consciousness: patient oriented x3 Limitations: no limitations HEENT Head: Yes normal to inspection Ears: hearing grossly normal bilaterally, external ears normal and unable to visualize TM (Cerumen impaction) bilaterally General nose exam: Normal external nose present, Normal nares present and No nasal discharge present Face and sinus: Yes normal facial exam and Yes sinuses nontender Mouth: Normal oral and palatal mucosa present and moist mucous membranes Throat: Yes tonsils normal, Yes uvula midline and Yes posterior oropharynx abnormal (Erythema) Eyes General: appearance normal, both eyes and all related structures Neck Neck: Yes normal visual inspection Resp Effort & Inspection: normal respiratory effort, able to speak in complete sentences, no respiratory distress, not tachypneic, no tripod positioning and no use of accessory muscles Skin General skin exam: no rashes or lesions noted Neuro General: patient oriented x3 Extrem General: Yes normal to inspection and Yes no clubbing, cyanosis or edema Office Procedures Cerumen Removal From which ear canal was the cerumen removed: bilateral Removal: irrigation Notes: patient tolerated procedure well, no complications and ear canal clear [id number] Irrigation/Lavage Assessment & Plan Assessment & Plan (1) Cerumen impaction: Code(s): H61.20 - Impacted cerumen, unspecified ear Qualifiers: Laterality: bilateral Qualified Code(s): H61.23 - Impacted cerumen, bilateral Plan: Ear canals clear, recommended patient start using Debrox drops once every 2-3 weeks (2) Headache: Code(s): R51.9 - Headache, unspecified Qualifiers: Headache chronicity pattern: acute headache Headache type: unspecified Intractability: not intractable Qualified Code(s): R51.9 - Headache, unspecified Plan: Recommended patient take 1000 mg of Tylenol every 8 hours and if her headache does not go away, she should seek care at the emergency department. Also tested for COVID, flu and RSV. Also recommended starting daily allergy pill Orders: Orders SARS-CoV2/FLU/RSV Today J06.9 - Acute upper respiratory infection, unspecified Coding Level of Care Code Est Pt Level 4 (40056) Diagnoses Bilateral impacted cerumen H61.23 Laterality: bilateral Acute nonintractable headache, unspecified headache type R51.9 Headache chronicity pattern: acute headache Headache type: unspecified Intractability: not intractable CPT Codes Office Procedure - CPT: 04338-Ghc Irrigation/Lavage ([id number])
[2024-07-27 08:07] VITALS: BP 116/78; PULSE 78; TEMP 37; O2SAT 98; BMI 21.0
== END 2024-07-27 08:57 | disposition home or self-care (01) ==
PROVIDERS: PCP Internal Medicine; Visit Provider Physician Assistant
DX: R51.9 Headache, unspecified (principal); H61.23 Impacted cerumen, bilateral
CPT/HCPCS: 69209; 99214

== ENCOUNTER 2024-07-27 08:24 | Outpatient (REF) | payer OTHER, SELFPAY ==
[2024-07-27 11:33] LABS: Influenza A PCR NEGATIVE (Negative); Influenza B PCR NEGATIVE (Negative); Resp Syncy Virus RNA Qual PCR NEGATIVE (Negative); SARS COV2 PCR INHOUSE NEGATIVE (Negative)
== END 2024-07-27 08:25 | disposition home or self-care (01) ==
LOC: HO.LNP 08:24
PROVIDERS: Visit Provider Physician Assistant
DX: J06.9 Acute upper respiratory infection, unspecified (principal)
CPT/HCPCS: 0241U

== ENCOUNTER 2024-08-19 08:37 | Outpatient (AMB) | payer OTHER, SELFPAY ==
[2024-08-19 08:38] VITALS: BP 110/62; BMI 20.6
--- NOTE | 2024-08-19 08:38 | A.OFFVIS_ITS ---
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 Ultrasound done in 04/10 showed the following: The uterus is retroverted, with left-sided tilt and measures 6.1 x 3.0 x 4.2 cm. Endometrial thickness is 3 mm. Severely limited visualization on transabdominal and transvaginal ultrasound images due to uterine retropositioning and left-sided tilt as well as hyperperistalsing bowel. Right ovary measures 2.5 x 1.3 x 1.0 cm, volume 1.6 mL, and was seen only on limited transabdominal ultrasound images. Left ovary measures 1.9 x 0.9 x 1.3 cm, volume 1.6 mL. Limited visualization of the left ovary. No significant free fluid in the pelvis. Last co testing in 02/06 was negative Since then the patient had another episode of vaginal spotting/bleeding [facility] Medical History Headache Encounter for general adult medical examination with abnormal findings URI (upper respiratory infection) Proteinuria Hematuria Left flank pain Excessive cerumen in right ear canal Infection of right ear Irritation of right eye Bleeding per rectum Blurring of vision Rash Postmenopausal bleeding Encounter to discuss test results COVID-19 virus infection Nasal congestion Myalgia Abdominal cramping Underweight due to inadequate caloric intake Gastric inflammation Pain in right wrist Dysphagia Nausea Dysphagia Altered bowel habits Acid reflux Hard stool Abdominal pain Postmenopausal vaginal bleeding Well woman exam with routine gynecological exam Ingrown toenail of left foot Toe infection Paronychia of great toe of left foot Paronychia of great toe of right foot Paronychia due to ingrown nail Paronychia History of COVID-19 Endocervical polyp GERD (gastroesophageal reflux disease) Arthritis of right wrist Scoliosis Hx of migraines History of iron deficiency anemia Surgical History Hx of esophagogastroduodenoscopy Hx of colonoscopy History of tonsillectomy Family History Father Diabetes mellitus Stomach cancer Mother HTN (hypertension) Afib Heart failure Maternal Grandfather CVD (cardiovascular disease) Maternal Grandmother Leukemia Paternal Grandfather Cancer Paternal Grandmother No problems noted. Brother No problems noted. Brother No problems noted. Brother No problems noted. Brother No problems noted. Brother No problems noted. Sister No problems noted. Sister No problems noted. Sister No problems noted. Social History Household Members: None Housing: Condominium Alcohol intake: former Patient Tobacco Use Status: Never used Tobacco e-Cigarette/Vaping Use: Never Used Current occupational status: unemployed Sexual orientation: Straight/Heterosexual Gender identity: Female Cognitive needs: No Hearing needs: No Vision needs: No Office Procedures Endometrial Biopsy Details: The patient was counseled regarding the indication and benefits of endometrial sampling to rule out endometrial pathology including not limited to endometrial hyperplasia or endometrial cancer and others; The alternatives (Either do nothing vs. hysteroscopy D&C) & the risks were discussed with the patient including but not limited: pain, uterine perforation, bleeding, infection, possible injury to bladder, bowel, ureter, possible need for blood transfusion with all its possible risks. The patient verbalized understanding all questions answered and signed consent. The patient was placed into the dorsal lithotomy position; a speculum was inserted in the vagina. Using aseptic technique for the procedure, the cervix was cleansed with Betadine. The anterior lip of the cervix was grasped with a single tooth tenaculum. The uterus was sounded to 7 cm with a 4 mm Pipelle was used. Tissues samples were obtained and placed in formalin, in a patient labeled container and sent to the pathology department. At the end of the procedure, there was minimal bleeding noted The patient tolerated the procedure well and was discharged in good condition with the following instructions: Nothing in the vagina until the bleeding stops. No sex until the bleeding stops, to call if any of the following occurs: fever (>100.4), flu-like symptoms, abdominal pain, heavy bleeding, four smelling vaginal discharge. The patient was instructed to schedule a Follow up appointment in 2 weeks to discuss pathology results of the biopsy and treatment options. This note was generated with a voice recognition program. Some errors may have been overlooked during the review of this note. Sometimes these errors may affect the content or meaning of a given sentence. [id number] Biopsy Assessment & Plan Assessment & Plan (1) Postmenopausal vaginal bleeding: Code(s): N95.0 - Postmenopausal bleeding Category: Medical Plan: Discussed with the patient the pelvic ultrasound findings, the endometrial stripe thickenss measured by ultrasound was less than 4mm. The negative predictive value, positive predictive value, Sensitivity, specificity of using ultrasound measurement of endometrial stripe to detecting endometrial pathology including hyperplasia , polyp or cancer were discussed with the patient. Since the patient had a recurrent episode of vaginal bleeding, Recommended to the patient that the next step is an endometrial sampling via hysteroscopy D&C possible polypectomy versus endometrial biopsy to r/o endometrial pathology including hyperplasia or cancer. All the pros and cons risks and benefits of each approach were discussed with the patient, endometrial biopsy being less invasive, office procedure with less sensitivity and inability diagnose a polyp and removal versus hysteroscopy done under anesthesia more invasive more sensitive to endometrial cancer and possibility of diagnosing and endometrial polyp with the possibility of polypectomy. All questions were answered pt verbalized understanding and decided to proceed with endometrial biopsy. EMB done, see procedure note Orders: Orders AMB Endometrial Biopsy Today N95.0 - Postmenopausal bleeding Coding Level of Care Code Procedure Only Diagnoses Postmenopausal vaginal bleeding N95.0 CPT Codes Endometrial Biopsy - CPT: 54030-[id number] Biopsy ([id number])
== END 2024-08-19 09:11 | disposition home or self-care (01) ==
PROVIDERS: PCP Internal Medicine; Visit Provider Obstetrics & Gynecology
DX: N95.0 Postmenopausal bleeding (principal)
CPT/HCPCS: 58100

== ENCOUNTER 2024-08-19 08:37 | Outpatient (REF) | payer OTHER, SELFPAY | END 2024-08-19 08:38 | disposition home or self-care (01) | LOC: HO.LNP 08:37 | PROVIDERS: PCP Internal Medicine; Visit Provider Obstetrics & Gynecology | DX: N95.0 Postmenopausal bleeding (principal) | CPT/HCPCS: 58100; 88305 ==

== ENCOUNTER 2024-09-07 15:01 | Outpatient (AMB) | payer OTHER, SELFPAY ==
--- NOTE | 2024-09-07 15:08 | MHC.OFFVIS ---
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 The patient has no complaints, no vaginal bleeding, no feverishness chills or abdominal pain. The endometrial biopsy pathology report showed the following: Endometrium, biopsy: Scant benign atrophic endometrium and scant benign endocervical glandular and squamous epithelium; no atypia or carcinoma. Comment: The tissue is very scant may not be procurement representative [facility] Medical History Headache Encounter for general adult medical examination with abnormal findings URI (upper respiratory infection) Proteinuria Hematuria Left flank pain Excessive cerumen in right ear canal Infection of right ear Irritation of right eye Bleeding per rectum Blurring of vision Rash Postmenopausal bleeding Encounter to discuss test results COVID-19 virus infection Nasal congestion Myalgia Abdominal cramping Underweight due to inadequate caloric intake Gastric inflammation Pain in right wrist Dysphagia Nausea Dysphagia Altered bowel habits Acid reflux Hard stool Abdominal pain Postmenopausal vaginal bleeding Well woman exam with routine gynecological exam Ingrown toenail of left foot Toe infection Paronychia of great toe of left foot Paronychia of great toe of right foot Paronychia due to ingrown nail Paronychia History of COVID-19 Endocervical polyp GERD (gastroesophageal reflux disease) Arthritis of right wrist Scoliosis Hx of migraines History of iron deficiency anemia Surgical History Hx of esophagogastroduodenoscopy Hx of colonoscopy History of tonsillectomy Family History Father Diabetes mellitus Stomach cancer Mother HTN (hypertension) Afib Heart failure Maternal Grandfather CVD (cardiovascular disease) Maternal Grandmother Leukemia Paternal Grandfather Cancer Paternal Grandmother No problems noted. Brother No problems noted. Brother No problems noted. Brother No problems noted. Brother No problems noted. Brother No problems noted. Sister No problems noted. Sister No problems noted. Sister No problems noted. Social History Household Members: None Housing: Condominium Alcohol intake: former Patient Tobacco Use Status: Never used Tobacco e-Cigarette/Vaping Use: Never Used Current occupational status: unemployed Sexual orientation: Straight/Heterosexual Gender identity: Female Cognitive needs: No Hearing needs: No Vision needs: No Female Reproductive History Menstrual Date of last menstrual period: 09/15/20 Total pregnancies: 2 Full term: 2 Review of Systems Card Reports as per HPI and Reports no additional complaints Resp Reports as per HPI and Reports no additional complaints GI Reports as per HPI and Reports no additional complaints Reports as per HPI Physical Exam Vital Signs: BMI result Body Mass Index 20.6 Const General: cooperative, healthy appearing and comfortable Resp Effort & Inspection: normal respiratory effort Auscultation: clear to auscultation bilaterally Percussion: percussion normal Cardio Palpation: normal PMI Rate: regular rate Rhythm: regular rhythm Heart sounds: no murmurs and no rubs Peripheral pulses: Peripheral pulses 2+ throughout GI Inspection: Yes normal to inspection Palpation (GI): Soft to palpation, nontender, no guarding, not rigid and No hepatosplenomegaly present Percussion: Yes normal to percussion Auscultation: normal bowel sounds Rectal Exam - Female: deferred Assessment & Plan Assessment & Plan (1) Postmenopausal vaginal bleeding: Code(s): N95.0 - Postmenopausal bleeding Category: Medical Plan: Discussed with the patient the results of the endometrial biopsy, may not be procurement representative, recommended hysteroscopy D&C possible polypectomy/myomectomy. Discussed with the patient the procedure , all benefits and risks including but not limited to inability to complete the procedure , insufficient endometrial tissue for a complete evaluation of the endometrial cavity , bleeding, infection, possible need for blood transfusion with all its risk ( HIV,syphilis, Hepatitis, anaphylaxis shock, others..), injury to bladder, rectum, possible need for laparoscopy/laparotomy or hysterectomy. The patient verbalized understanding and signed the consent. Instructions given the patient to stay NPO after midnight the day prior to the procedure and to take only the specific medication (s) discussed the morning of the surgical procedure and to schedule a 2 week postoperative appointment Coding Level of Care Code Est Pt Level 3 (64696) Diagnoses Postmenopausal vaginal bleeding N95.0
[2024-09-07 15:13] VITALS: BMI 20.6
== END 2024-09-07 15:30 | disposition home or self-care (01) ==
LOC: HO.HWS 15:01
PROVIDERS: PCP Internal Medicine; Visit Provider Obstetrics & Gynecology
DX: N95.0 Postmenopausal bleeding (principal)
CPT/HCPCS: 99213

== ENCOUNTER → 2024-09-07 15:01 | Outpatient (BNVA) | payer OTHER, SELFPAY | PROVIDERS: PCP Internal Medicine; Visit Provider Obstetrics & Gynecology | DX: N95.0 Postmenopausal bleeding (principal) | CPT/HCPCS: 99212 ==

== ENCOUNTER 2024-09-17 12:56 | Day surgery (SDC) | payer OTHER, SELFPAY ==
--- NOTE | 2024-09-15 13:54 | HO.ANESPROP2 ---
Documented by User: Marcy Leach NP 09/15/24 13:55 HPI - Anesthesia Eval Consult details Narrative: 64yo F for D&C Hysteroscopy possible myomectomy/ploypectomy PMFSH Active Problems Active Problems: All Active Problems Headache (Acute) Cerumen impaction (Acute) Constipation by delayed colonic transit (Acute) Well woman exam (Acute) Foreign body in eye (Acute) Animal bite of finger (Acute) Encounter for general adult medical examination with abnormal findings (Acute) Lumbar pain (Acute) Osteopenia (Acute) Corneal abrasion of both eyes (Acute) Constipation (Acute) Acute epigastric pain (Acute) COVID-19 (Acute) Diverticulosis (Acute) Trigger middle finger of right hand (Acute) Vitamin D deficiency (Acute) Menopause (Acute) Chronic GERD (Acute) Dermatitis (Acute) Endocervical polyp (Acute) Past Medical History Medical History Headache Encounter for general adult medical examination with abnormal findings URI (upper respiratory infection) Proteinuria Hematuria Left flank pain Excessive cerumen in right ear canal Infection of right ear Irritation of right eye Bleeding per rectum Blurring of vision Rash Postmenopausal bleeding Encounter to discuss test results COVID-19 virus infection Nasal congestion Myalgia Abdominal cramping Underweight due to inadequate caloric intake Gastric inflammation Pain in right wrist Dysphagia Nausea Dysphagia Altered bowel habits Acid reflux Hard stool Abdominal pain Postmenopausal vaginal bleeding Well woman exam with routine gynecological exam Ingrown toenail of left foot Toe infection Paronychia of great toe of left foot Paronychia of great toe of right foot Paronychia due to ingrown nail Paronychia History of COVID-19 Endocervical polyp GERD (gastroesophageal reflux disease) Arthritis of right wrist Scoliosis Hx of migraines History of iron deficiency anemia Family History Family History Father Diabetes mellitus Stomach cancer Mother HTN (hypertension) Afib Heart failure Maternal Grandfather CVD (cardiovascular disease) Maternal Grandmother Leukemia Paternal Grandfather Cancer Paternal Grandmother No problems noted. Brother No problems noted. Brother No problems noted. Brother No problems noted. Brother No problems noted. Brother No problems noted. Sister No problems noted. Sister No problems noted. Sister No problems noted. Family history of problems with anesthesia: No Surgical History Surgical History Hx of esophagogastroduodenoscopy Hx of colonoscopy History of tonsillectomy History of Problems with Anesthesia: No Social History Social History Household Members: None Housing: Condominium Are you a primary career technical counselor to a significant other at home: No Do you presently have visiting nurse or other home services: No Alcohol intake: former Patient Tobacco Use Status: Never used Tobacco e-Cigarette/Vaping Use: Never Used Use of substances other than those prescribed or required for medical reasons: No Have you been hit, kicked, punched, or otherwise hurt by someone within the past year? If so, by whom?: No Are you DNR?: No Advance Directives: No Advance Directives Information Provided: Yes Recently lost weight without trying: No Nutrition Risks: No Nutritional Risk Patient : No Current occupational status: unemployed Sexual orientation: Straight/Heterosexual Gender identity: Female Cognitive needs: No Hearing needs: No Vision needs: No Meds Allergies Allergy/AdvReac Type Severity Reaction Status Date / Time No Known Allergies Allergy Verified 09/17/24 13:04 [No Known Allergies*] Home Medications ?Medication ?Instructions ?Recorded ?Confirmed ?Last Taken ?Type acetaminophen 325 mg capsule 325 mg PO QID PRN Headache 05/25/24 09/17/24 09/16/24 History (Tylenol) Assessment and Plan Assessment Anesthesia Assessment: Chart Reviewed Final Anesthetic Review Family History of Problems with Anesthesia: No History of Problems with Anesthesia: No Documented by User: Robyn Zaragoza MD 09/17/24 14:17 PMFSH Past Medical History Medical History Headache Encounter for general adult medical examination with abnormal findings URI (upper respiratory infection) Proteinuria Hematuria Left flank pain Excessive cerumen in right ear canal Infection of right ear Irritation of right eye Bleeding per rectum Blurring of vision Rash Postmenopausal bleeding Encounter to discuss test results COVID-19 virus infection Nasal congestion Myalgia Abdominal cramping Underweight due to inadequate caloric intake Gastric inflammation Pain in right wrist Dysphagia Nausea Dysphagia Altered bowel habits Acid reflux Hard stool Abdominal pain Postmenopausal vaginal bleeding Well woman exam with routine gynecological exam Ingrown toenail of left foot Toe infection Paronychia of great toe of left foot Paronychia of great toe of right foot Paronychia due to ingrown nail Paronychia History of COVID-19 Endocervical polyp GERD (gastroesophageal reflux disease) Arthritis of right wrist Scoliosis Hx of migraines History of iron deficiency anemia Family History Family History Father Diabetes mellitus Stomach cancer Mother HTN (hypertension) Afib Heart failure Maternal Grandfather CVD (cardiovascular disease) Maternal Grandmother Leukemia Paternal Grandfather Cancer Paternal Grandmother No problems noted. Brother No problems noted. Brother No problems noted. Brother No problems noted. Brother No problems noted. Brother No problems noted. Sister No problems noted. Sister No problems noted. Sister No problems noted. Surgical History Surgical History Hx of esophagogastroduodenoscopy Hx of colonoscopy History of tonsillectomy Social History Social History Household Members: None Housing: Condominium Are you a primary career technical counselor to a significant other at home: No Do you presently have visiting nurse or other home services: No Alcohol intake: former Patient Tobacco Use Status: Never used Tobacco e-Cigarette/Vaping Use: Never Used Use of substances other than those prescribed or required for medical reasons: No Have you been hit, kicked, punched, or otherwise hurt by someone within the past year? If so, by whom?: No Are you DNR?: No Advance Directives: No Advance Directives Information Provided: Yes Recently lost weight without trying: No Nutrition Risks: No Nutritional Risk Patient : No Current occupational status: unemployed Sexual orientation: Straight/Heterosexual Gender identity: Female Cognitive needs: No Hearing needs: No Vision needs: No Meds Allergies Allergy/AdvReac Type Severity Reaction Status Date / Time No Known Allergies Allergy Verified 09/17/24 13:04 [No Known Allergies*] Home Medications ?Medication ?Instructions ?Recorded ?Confirmed ?Last Taken ?Type acetaminophen 325 mg capsule 325 mg PO QID PRN Headache 05/25/24 09/17/24 09/16/24 History (Tylenol) Exam Airway Mallampati Class: IV TM Dist: <=3cm Neck ROM: Full Loose/Missing/Broken Teeth: No Heart: RRR Lungs: CTA Assessment and Plan Assessment Anesthesia Assessment: Anesthesia Plan Discussed Final Anesthetic Review NPO: Yes ASA Class: II Final Preanesthetic Review: Meds/Allgs Chart Reviewed, Consent Obtained/Reviewed and Anes Risks/Benef Reviewed Patient Risk: Low Procedure Risk: Low Anesthetic Plan Anesthetic Plan: GA Disposition: Standard PACU
[2024-09-17 13:07] VITALS: BMI 20.3
[2024-09-17 13:35] VITALS: BP 111/78; PULSE 65; RESP 12; TEMP 37.2; O2SAT 96
[2024-09-17] MEDS: Lactated Ringers 1,000 ML 100 ML IVCONT (13:38)
--- NOTE | 2024-09-17 13:59 | MHC.SHP ---
Pre-Procedural Eval Section A - 24 Hr Update-Section A only Date of Service: 09/17/24 The patient is an INPATIENT: No Changes since office visit: No Cold of Flu in the past 2 weeks, No New Medical Problems, No Changes in Medication and No Patient answered all questions The patient has been examined within 24 hours of the surgical procedure. The History & Physical has been completed within 30 days and I have reviewed it.: Yes Section B - Complete if H&P > 30 days Chief Complaint: Postmenopausal bleeding Allergies: Allergies Allergy/AdvReac Type Severity Reaction Status Date / Time No Known Allergies Allergy Verified 09/17/24 13:04 [No Known Allergies*] Plan Diagnosis/Plan: Unchanged I have reviewed the history and physical and performed a pertinent physical examination on my patient. No changes have occurred unless specified. Time Spent With Patient Time: Total time managing care of this patient today ____ minutes.
--- NOTE | 2024-09-17 14:31 | PM.OP ---
Brief Operative Note Date of Service: 09/17/24 Pre-op diagnosis: Postmenopausal bleeding Post-op diagnosis: same (Normal endometrial cavity) Procedure: Hysteroscopy D&C Surgeon: Baljit Sawyer MD Anesthesia: GLMA Was an Electronic Gluer used for this Procedure?: No Estimated blood loss (mL): 0 Pathology: other (Endometrial Scrapping) Condition: stable Disposition: PACU
--- NOTE | 2024-09-17 14:31 | W.PM.OPN ---
Operative Note Operative Note Date of Service: 09/17/24 Narrative: Preop Diagnosis: Post Menopausal bleeding Operation: Diagnostic Hysteroscopy, Dilataion & Curettage Post Op Diagnosis: Normal endometrial cavity QBL: Minimal Anesthesia: GLMA Surgeon: Baljit Sawyer MD Press Tender Star Signal: None Complication: None Pathology: Endometrial Scrapings Procedure: The patient was put in the dorsal lithotomy position, scrubbed, and draped in the usual manner. A sterile speculum was inserted in the patient's vagina. The anterior lip of the cervix was grasped with a single tooth tenaculum. The cervix was dilated up to 5 mm, then the scope was inserted in the patient's uterus. Inspection revealed Normal endometrial cavity. The Myosure Reach device was used; the scope was removed from the endometrial cavity , sharp curettings was carried on with minimal to moderate amount of tissues retrieved. At the end of the procedure, all instruments were taken out of the patient uterine and vaginal cavity. The single tooth tenaculum was removed and homeostasis was assured using pressure,. The patient tolerated the procedure well and was transferred to the PACU in a stable condition.
[2024-09-17 14:43] VITALS: BP 111/66; PULSE 83; RESP 16; TEMP 36.3; O2SAT 99
[2024-09-17 14:45] VITALS: BP 110/60; PULSE 90; RESP 16; O2SAT 99
[2024-09-17 14:50] VITALS: BP 117/69; PULSE 92; RESP 16; O2SAT 98
[2024-09-17 14:55] VITALS: BP 128/78; PULSE 86; RESP 16; O2SAT 98
[2024-09-17 15:05] VITALS: BP 132/77; PULSE 82; RESP 16; TEMP 36.2; O2SAT 99
== END 2024-09-17 15:44 | disposition home or self-care (01) ==
PROVIDERS: PCP Internal Medicine; Visit Provider Obstetrics & Gynecology
PROC: 0UDB8ZZ Extraction of Endometrium, Via Natural or Artificial Opening Endoscopic (ICD-10-PCS; CPT 58558; principal; 2024-09-17 14:00)
DX: N95.0 Postmenopausal bleeding (principal); N85.8 Other specified noninflammatory disorders of uterus; M79.10 Myalgia, unspecified site; Z98.890 Other specified postprocedural states; Z56.0 Unemployment, unspecified
CPT/HCPCS: 58558; 88305; J0131; J1100; J2003; J2405; J2704; J3010

== ENCOUNTER → 2024-09-17 12:56 | Outpatient (BNV) | payer OTHER, SELFPAY | PROVIDERS: PCP Internal Medicine; Visit Provider Obstetrics & Gynecology | DX: N95.0 Postmenopausal bleeding (principal) | CPT/HCPCS: 58558 ==

== ENCOUNTER 2024-09-30 12:25 | Outpatient (AMB) | payer OTHER, SELFPAY ==
[2024-09-30 12:38] VITALS: BP 118/78; BMI 20.5
--- NOTE | 2024-09-30 12:38 | MHC.OFFVIS ---
Vital Signs 09/30/24 12:38 Height 5 ft 6 in Weight 127 lb BMI 20.5 BP 118/78 Intake Visit Reasons: post op Intake Note: Accompanied by sister Lyla Accompanied by: Sister Allergies No Known Allergies [No Known Allergies*] Allergy (Verified 09/30/24 13:14) HPI Comments Details: The patient is presenting post hysteroscopy D&C no complaints minimal vaginal bleeding no feverishness chills or abdominal pain. The pathology showed the following: Endometrium, curettage: Predominantly blood and mucus with scant benign endocervical glandular and squamous epithelium and scant benign atrophic endometrium. Comment: The specimen may not be patient service representative of the endometrium [facility] Medical History Headache Encounter for general adult medical examination with abnormal findings URI (upper respiratory infection) Proteinuria Hematuria Left flank pain Excessive cerumen in right ear canal Infection of right ear Irritation of right eye Bleeding per rectum Blurring of vision Rash Postmenopausal bleeding Encounter to discuss test results COVID-19 virus infection Nasal congestion Myalgia Abdominal cramping Underweight due to inadequate caloric intake Gastric inflammation Pain in right wrist Dysphagia Nausea Dysphagia Altered bowel habits Acid reflux Hard stool Abdominal pain Postmenopausal vaginal bleeding Well woman exam with routine gynecological exam Ingrown toenail of left foot Toe infection Paronychia of great toe of left foot Paronychia of great toe of right foot Paronychia due to ingrown nail Paronychia History of COVID-19 Endocervical polyp GERD (gastroesophageal reflux disease) Arthritis of right wrist Scoliosis Hx of migraines History of iron deficiency anemia Surgical History Hx of esophagogastroduodenoscopy Hx of colonoscopy History of tonsillectomy Family History Father Diabetes mellitus Stomach cancer Mother HTN (hypertension) Afib Heart failure Maternal Grandfather CVD (cardiovascular disease) Maternal Grandmother Leukemia Paternal Grandfather Cancer Paternal Grandmother No problems noted. Brother No problems noted. Brother No problems noted. Brother No problems noted. Brother No problems noted. Brother No problems noted. Sister No problems noted. Sister No problems noted. Sister No problems noted. Social History Household Members: None Housing: Condominium Are you a primary pet care assistant to a significant other at home: No Do you presently have visiting nurse or other home services: No Alcohol intake: former Patient Tobacco Use Status: Never used Tobacco e-Cigarette/Vaping Use: Never Used Current occupational status: unemployed Sexual orientation: Straight/Heterosexual Gender identity: Female Cognitive needs: No Hearing needs: No Vision needs: No Review of Systems Const All systems reviewed & are unremarkable except as noted in HPI and below Reports as per HPI and Reports no additional complaints GI Reports no additional complaints Reports no additional complaints Physical Exam Vital Signs: Last Vital Signs BP 118/78 09/30/24 12:38 BMI result Body Mass Index 20.5 Assessment & Plan Assessment & Plan (1) Postmenopausal vaginal bleeding: Code(s): N95.0 - Postmenopausal bleeding Category: Medical Plan: Discussed with the patient the results of D and C pathology, scant tissues and may not be patient service representative of the endometrial cavity. Explained to the patient the endometrial pathology including endometrial hyperplasia and/or malignancy has not been ruled out. Refer to [facility] for further management an additional sampling to rule out endometrial pathology. All questions answered, the patient verbalized understanding and agreed with the plan Coding Level of Care Code Est Pt Level 3 (52511) Diagnoses Postmenopausal vaginal bleeding N95.0
== END 2024-09-30 13:52 | disposition home or self-care (01) ==
LOC: HO.HWS 12:25
PROVIDERS: PCP Internal Medicine; Visit Provider Obstetrics & Gynecology
DX: N95.0 Postmenopausal bleeding (principal)
CPT/HCPCS: 99213

== ENCOUNTER → 2024-09-30 12:25 | Outpatient (BNVA) | payer OTHER, SELFPAY | PROVIDERS: PCP Internal Medicine; Visit Provider Obstetrics & Gynecology | DX: N95.0 Postmenopausal bleeding (principal) | CPT/HCPCS: 99212 ==

== ENCOUNTER 2024-12-29 07:59 | Outpatient (AMB) | payer OTHER, SELFPAY ==
--- NOTE | 2024-12-29 08:12 | MHC.OFFWIV ---
Intake Vital Signs 12/29/24 08:14 Height 5 ft 6 in Weight 127 lb BMI 20.5 BP 110/76 Blood Pressure Location Lt brachial Position Sitting Pulse 86 Pulse Source Pulse Oximeter Temp 98.1 F Temp Source Oral Pulse Oximetry (%) 98 Intake Visit Reasons: EP headaches, neck cramping Patient Tobacco Use Status: Never used Tobacco Allergies No Known Allergies [No Known Allergies*] Allergy (Verified 12/29/24 08:15) Do you need a note to return to daycare/school/sports/work: No HPI HPI Comments History of Present Illness Details This is a 64-year-old female with no stated past medical history presenting for evaluation of a frontal headache and posterior neck pain that she has had since . Patient states that she usually has headaches at least 1 time a month. Patient denies having any visual changes, photophobia, fevers, chills, lightheadedness, syncope or difficulty swallowing. Patient has taken Tylenol only twice daily without relief of her discomfort. [facility] Medical History Headache Encounter for general adult medical examination with abnormal findings URI (upper respiratory infection) Proteinuria Hematuria Left flank pain Excessive cerumen in right ear canal Infection of right ear Irritation of right eye Bleeding per rectum Blurring of vision Rash Postmenopausal bleeding Encounter to discuss test results COVID-19 virus infection Nasal congestion Myalgia Abdominal cramping Underweight due to inadequate caloric intake Gastric inflammation Pain in right wrist Dysphagia Nausea Dysphagia Altered bowel habits Acid reflux Hard stool Abdominal pain Postmenopausal vaginal bleeding Well woman exam with routine gynecological exam Ingrown toenail of left foot Toe infection Paronychia of great toe of left foot Paronychia of great toe of right foot Paronychia due to ingrown nail Paronychia History of COVID-19 Endocervical polyp GERD (gastroesophageal reflux disease) Arthritis of right wrist Scoliosis Hx of migraines History of iron deficiency anemia Surgical History Hx of esophagogastroduodenoscopy Hx of colonoscopy History of tonsillectomy Family History Father Diabetes mellitus Stomach cancer Mother HTN (hypertension) Afib Heart failure Maternal Grandfather CVD (cardiovascular disease) Maternal Grandmother Leukemia Paternal Grandfather Cancer Paternal Grandmother No problems noted. Brother No problems noted. Brother No problems noted. Brother No problems noted. Brother No problems noted. Brother No problems noted. Sister No problems noted. Sister No problems noted. Sister No problems noted. Social History Household Members: None Housing: Condominium Are you a primary rn patient care to a significant other at home: No Do you presently have visiting nurse or other home services: No Alcohol intake: former Patient Tobacco Use Status: Never used Tobacco e-Cigarette/Vaping Use: Never Used Current occupational status: unemployed Sexual orientation: Straight/Heterosexual Gender identity: Female Cognitive needs: No Hearing needs: No Vision needs: No Review of Systems Const All systems reviewed & are unremarkable except as noted in HPI and below Reports as per HPI, Denies chills, Denies difficulty sleeping, Denies fatigue, Denies fever(s) and Reports headache(s) Eyes Reports no additional complaints, Denies change in vision, Denies other visual disturbances and Denies photophobia ENT Reports no additional complaints, Reports headache(s) and Reports neck pain (posterior) Card Reports no additional complaints Resp Reports no additional complaints GI Reports no additional complaints Reports no additional complaints Musc Reports no additional complaints and Reports neck pain (posterior) Skin/Breast Reports system reviewed and no additional complaints, except as documented Neuro Reports headache(s) Psych Reports as per HPI and Denies abnormal sleep pattern Endo Reports no additional complaints and Denies fatigue Jose M/Lymph Reports no additional complaints Aller/Immun Reports no additional complaints Physical Exam Vital Signs: Last Vital Signs Temp 98.1 F 12/29/24 08:14 Pulse 86 12/29/24 08:14 BP 110/76 12/29/24 08:14 Pulse Ox 98 12/29/24 08:14 BMI result Body Mass Index 20.5 Const General: cooperative, healthy appearing, comfortable, no acute distress, well developed, alert, awake and Physically active Nutritional Appearance: well nourished Orientation/consciousness: patient oriented x3 Limitations: no limitations HEENT Head: Yes normal to inspection and Yes normocephalic Ears: hearing grossly normal bilaterally, external ears normal, TM normal on the right, left TM abnormal (cerumen impaction) and EAC's normal General nose exam: Normal external nose present Face and sinus: Yes normal facial exam and Yes sinuses nontender Mouth: Normal oral and palatal mucosa present and moist mucous membranes Throat: Yes posterior oropharynx normal Eyes General: appearance normal, both eyes and all related structures Alignment and Position: alignment normal Pupils: Equal, round and reactive pupils present Direct Ophthalmoscopy: no photophobia and No photophobia Neck Neck: Yes normal visual inspection and Yes no lymphadenopathy Resp Effort & Inspection: normal respiratory effort and able to speak in complete sentences Auscultation: clear to auscultation bilaterally Cardio Rate: regular rate Rhythm: regular rhythm Back/Spine/Pelvis Cervical Spine: normal cervical lordosis, cervical muscular tenderness (bilaterally), No cervical spasm and No Cervical spine tenderness Skin General skin exam: no rashes or lesions noted Neuro General: patient oriented x3 and CN's II-XI intact bilaterally Cranial nerves: Yes Equal, round and reactive pupils present Cognition (Neuro): normal cognition Psych Appearance: grossly normal Mental Status: mental status grossly normal Insight: Good insight present (Psych) Judgement: Good judgement present (Psych) Assessment & Plan Assessment & Plan (1) Cervical strain, acute: Comment: There is no nuchal rigidity upon examination. Patient will be discharged home with methocarbamol to take in conjunction with Naprosyn. Code(s): S16.1XXA - Strain of muscle, fascia and tendon at neck level, initial encounter Qualifiers: Encounter type: initial encounter Qualified Code(s): S16.1XXA - Strain of muscle, fascia and tendon at neck level, initial encounter Plan: Methocarbamol q.8 hours p.r.n. cervical paraspinous tenderness. (2) Headache: Comment: Patient states she has been instructed to avoid aspirin due to ?diverticulosis?. Patient will be prescribed enteric-coated Naprosyn. Code(s): R51.9 - Headache, unspecified Qualifiers: Headache type: unspecified Headache chronicity pattern: acute headache Intractability: not intractable Qualified Code(s): R51.9 - Headache, unspecified Plan: Naprosyn q.12 hours times 5-7 days as needed for headache. Medications: New naproxen (EC-Naprosyn) 375 mg PO BID 20 tabs 0RF methocarbamol 750 mg PO Q8H 20 tabs 0RF Coding Level of Care Code Est Pt Level 3 (22377) Diagnoses Acute strain of neck muscle, initial encounter S16.1XXA Encounter type: initial encounter Acute nonintractable headache, unspecified headache type R51.9 Headache type: unspecified Headache chronicity pattern: acute headache Intractability: not intractable Time Spent (min) 25
[2024-12-29 08:14] VITALS: BP 110/76; PULSE 86; TEMP 36.7; O2SAT 98; BMI 20.5
== END 2024-12-29 08:29 | disposition home or self-care (01) ==
PROVIDERS: PCP Internal Medicine; Visit Provider Physician Assistant
DX: S16.1XXA Strain of muscle, fascia and tendon at neck level, initial encounter (principal); R51.9 Headache, unspecified

== ENCOUNTER → 2024-12-29 07:59 | Outpatient (BNVA) | payer OTHER, SELFPAY | PROVIDERS: PCP Internal Medicine | DX: S16.1XXA Strain of muscle, fascia and tendon at neck level, initial encounter (principal); R51.9 Headache, unspecified | CPT/HCPCS: 99212 ==

== ENCOUNTER 2025-01-05 08:00 | Outpatient (AMB) | payer OTHER, SELFPAY ==
--- OUTSIDE RECORDS SUMMARY | 2025-01-05 08:02 | XMS_ITS | Data Portability ---
Author Organization [facility], [address] Address [address] [place] [address] Care Team Providers Care Store Receiver Name Role Phone KRISTIN KUConstantine Primary Care Provider Assessment No assessment recorded. Plan of Treatment Reminders Order Date Submit Date Provider Last Modified By Organization Details Last Modified Time Details Appointments None recorded. Lab None recorded. Referral None recorded. Procedures None recorded. Surgeries None recorded. Imaging None recorded. Medication Orders Pataday Twice Daily Relief 0.1 % eye drops 2022 023 [facility]/Ph[facility]acy #[id number], [address] [place], [address], 3 08:36:30 ciprofloxac in 0.3 % eye drops 2022 023 [facility]/Pharmacy #[id number], [address] [place], [address], 3 08:08:23 Patient TargetsNo targets recorded. Patient Instructions Encounter Date Encounter Id Patient Instructions Last Modified By Organization Details Last Modified Time 02/08/2023 [id number] Based on your presentation and exam - you are being diagnosed with a Stye vs scratch in the lower eyelid. A Stye is a clogged gland in the eyelid. This will resolve over time. If it is a scratch this will heal as well over time. The following are my recommendations to help with your symptoms and this diagnosis: 1. Do not rub your eyes this can cause it to spread or damage the cornea of your eye. 2. Do not wear contacts for at least 1 week if you have contacts. 4. No makeup 5. You can take Ibuprofen or Tylenol for discomfort if you are not allergic to them. 6. If you get lubricating eye drops and put them in the refrigerator - this can help with itching and discomfort. 7. Get an old sock and fill it with a cup of rice - put it in the microwave for a few second and apply it to the eyelid. Do this as frequently as possible - but make sure you don't make it too hot because it could cause a burn if it is too hot - you want it to just be warm. You should be seen again if you develop any of the following symptoms 1. Eye pain or pressure behind the eye. 2. Redness or significant swelling of the eyelid or around the eye 3. Headache 4. Fever > 100.5 5. No improvement in current symptoms in the next 1 week. 6. Increased swelling of the eye lid that lasts longer than 2 weeks. 7. Rash around your face. Thank you for using [facility] today, please feel free to contact us with any questions or concerns. [email or web address] Not available 02/08/2023 08:27:16 03/05/2023 [id number] allergic conjunctivitis in teens: care instructions [email or web address] Not available 03/05/2023 08:39:28 It is possible s ome of your symptoms could be related to seasonal allergies. Your exam revealed mild irritation of your eye but no visible foreign body or corneal lesion. Use the eye drops as instructed. Continue to use your over the counter eye lubricating drops per package instructions. See printed instructions. Seek Emergency Medical evaluation for any worsening symptoms. If no improvement in one week follow-up with Dr. Hilliard your eye doctor. [email or web address] Not available 03/05/2023 08:39:28 Reason for Referral None Reported. Problems No Known Problems Procedures Surgical History Date Name Laterality Status Provider Name and Address Organization Details Recorded Time tonsillectomy completed JALEESA MANN - [facility] 02/08/2023 08:09:40 Imaging Results None recorded. Procedure Notes None recorded. Medical Equipment None Reported. Allergies No known drug allergies Medications Name Sig Start Date Stop Date Status Note LastModified by Organization Details LastModified Time ciprofloxac in 0.3 % eye drops Instill 1 drop every 4 hours by ophthalmi c route for 7 days. 03/05 completed Not Available Not Available Not Available Pataday Twice Daily Relief 0.1 % eye drops INSTILL 1 DROP INTO AFFECTED EYE(S) BY OPHTHALMI C ROUTE 2 TIMES PER DAY AT AN INTERVAL OF 6 TO 8 HOURS 2022 active Not Available Not Available Not Avai lable Vitals Date Recorded Body height Body mass index (BMI) Body weight Pain severity - 0-10 verbal numeric rating [Score] - Reported Respiratory rate Oxygen saturation Oxygen saturation in Arterial blood by Pulse oximetry Heart rate Body temperature Systolic blood pressure Diastolic blood pressure Provider Name and Address Organization Details Last Updated DateTime 3 167.64 cm 19.4 kg/m2 77930.0 8 g 7 18 /min 99 % 99 % 78 /min 98.3 [degF] 133 mm[Hg] 90 mm[Hg] JALEESA GOVEA [place] - [facility] 3 08:10:52 Date Recorded Body height Body mass index (BMI) Body weight Pain severity - 0-10 verbal numeric rating [Score] - Reported Body temperature Respiratory rate Oxygen saturation Oxygen saturation in Arterial blood by Pulse oximetry Heart rate Systolic blood pressure Diastolic blood pressure Provider Name and Address Organization Details Last Updated DateTime 3 167.64 cm 19.4 kg/m2 43276.0 8 g 7 97.3 [degF] 18 /min 100 % 100 % 68 /min 123 mm[Hg] 81 mm[Hg] Marisel MANN - [facility] 3 08:10:06 Social History Question Answer Notes LastModified by Organizat ion Details LastModified Time Tobacco Smoking Status Never Smoker JALEESA hoffman PA - [facility] 02/08/2023 08:09:53 What Is Your Level Of Alcohol Consumption? None [email or web address] Information not available 02/08/2023 Do You Use Any Illicit Or Recreational Drugs? No Information not available 02/08/2023 Have You Recently Traveled Abroad? No Information not available 02/08/2023 Do You Or Have You Ever Used Any Other Forms Of Tobacco Or Nicotine? No [email or web address] Information not available 02/08/2023 Sex: Unknown Functional Status None recorded. Mental Status None recorded. Family History Relationship Description Onset Age of this Age Resolved Age Notes LastModified by Organization Details LastModified Time Father No current problems or disability Not available 02/08 08:09:41 Mother No current problems or disability [email or web address] Not available 02/08 08:09:41 Medical History No medical history recorded. Gynecological HistoryNo gynecological history recorded. Obstetrics History GPAL:G 0 P 0 0 0 0 Immunizations Vaccine Type Date Status Note Provider Nam e and Address Organization Details Recorded Time COVID-19, mRNA, LNP-S, PF, 30 mcg/0.3 mL dose, jeane-sucrose 12/26/2021 completed JOHNATHAN Cruz - [facility] 03/05/2023 08:08:00 Past Encounters Encounter ID Performer Location Encounter Start Date Encounter Closed Date Diagnosis/Indication Diagnosis SNOMED-CT Code Diagnosis ICD10 Code Diagnosis Note [id number] [address] [place] [address] 01/28/2021 15:13:50 01/28/2021 16:03:26 [id number] [address] [place] [address] 09/22/2018 08:02:35 09/22/2018 09:19:06 [id number] [address] [place] [address] 0 02/15/2019 08:04:43 02/15/2019 08:21:25 [id number] [address] [place] [address] 08/07/2019 08:08:23 08/07/2019 08:44:46 [id number] [address] [place] [address] 04/26/2017 09:28:49 04/26/2017 10:16:13 [id number] [address] [place] [address] 07/10/2018 07:55:53 07/10/2018 09:09:51 [id number] [address] [place] [address] 09/23/2019 18:34:26 09/23/2019 18:50:22 [id number] [address] [facility] [place] [place] [address] 02/03/2017 13:05:31 02/03/2017 13:56:03 [id number] [address] [facility] [place] [address] 09/24/2018 07:51:47 09/24/2018 08:24:12 [id number] [address] [facility] [place] [address] 12/27/2018 12:24:45 12/27/2018 12:47:59 [id number] [address] [facility] [place] [address] 07/16/2020 15:29:23 07/16/2020 17:14:41 [id number] [address] [facility] [place] [address] 11/26/2018 08:06:47 11/26/2018 08:35:35 [id number] [address] [facility] [place] [address] 01/27/2021 08:25:50 01/27/2021 09:21:26 [id number] JOHNATHAN PATRICK [address] [facility] [place] [address] 02/08/2023 08:03:39 02/08/2023 08:34:37 Hordeolum externum of lower eyelid of left eye [id number] 26999 H00.015 Differenti al - was a FB that has scratched the left lower lateral eyelid. Does not appear to be vesicular. No involvment in surroundin g skin or cornea. Would advise Eye doctor in 5 days if not relief. Elevated blood-pressure reading without diagnosis of hypertension [id number] R03.0 You blood pressure was elevated during your visit with us and you do not have a history of Hypertensi on or taking blood pressure medication s currently. This is important to monitor and address with your PCP. Undiagnose d hypertensi on that remains untreated can lead to:1. Kidney Failure2. Stroke3. Congestive Heart Failure. Please get a blood pressure cuff and keep a journal of your daily blood pressure. Once in the AM and Once in a PM. Please schedule an appointmen t with your Primary Care Doctor to discuss the results of your journal. [id number] Vashti Isabel MD [address] [place] [address] 03/05/2023 08:03:48 03/05/2023 08:40:59 Acute atopic conjunctivitis of left eye [id number] 79482 H10.12 Health Concerns Section Related Observation LastModified by Organization Detai ls LastModified Time None Recorded Concern Status LastModified by Organization Details LastModified Time None Recorded Advance Directives Directive None Recorded Payers Encounter Date Sequence Insurance Name Policy Number Policy Monk Covered Member ID Monk Member ID Guarantor Name 07/16/2020 1 [facility] (MEDICAID REPLACEMENT - HMO) BOSTARTHURO Tammi S Christopher [id number] Tammi S Christopher 01/27/2021 1 [facility] (MEDICAID REPLACEMENT - HMO) BOSTNACO Tammi S Christopher [id number] Tammi S Christopher 01/28/2021 1 [facility] (MEDICAID REPLACEMENT - HMO) BOSTARTHURO Tammi S Christopher [id number] Tammi S Christopher 02/08/2023 1 [facility] (MEDICAID REPLACEMENT - HMO) BOSTNACO Tammi S Christopher [id number] Tammi S Christopher 03/05/2023 1 [facility] (MEDICAID REPLACEMENT - HMO) [place]OSTNACO Tammi S Christopher [id number] Tammi S Christopher Notes Date Note Type Note Provider Name and Address Organization Details Recorded Time 3 text/html Eye problemsReported bypatient.source of patient informationInformation obtained from patient; Patient arrived at Urgent Care ambulatory Location:left Eye Symptoms:no sensitivity to light;redness;foreign body sensation;discharge;watery; itching Severity:mild Onset/Timindays Modifying Factors:OTC medicationNotes:The patient reports had dental work done on Saturday. She states after that she felt like she had something in her eye. She states that it is now watering and feels like mucous in the eye that is causing her vision to be hazy She states in the left lower portion of the eyelid is the pain and irritation. She states she has been using OTC medication without any improvement. She denies any history of viral keratitis or shingles. JOHNATHAN PATRICK [address] [place], [address], [facility] 02/08/2023 08:31:52 3 text/html Eye problemsReported bypatient.source of patient informationInformation obtained from patient; Patient arrived at Urgent Care ambulatory Location:left Eye Symptoms:redness;foreign body sensation;watery;itching; Irritated. Minor light sensitivity. Occasional tearing. No eye trauma or contact lens use. Severity:mild Onset/Timinweeks Context:Mild nasal congestion. Modifying Factors:nothing gives relief; new glassesNotes:63 year old female presenting for evaluation of left eye redness and irritation with occasional tearing and a slight foreign body sensation with some itching for the past 2 weeks. She was seen here 02/08/23 and prescribed cipro opthalmic drops for a stye. She saw her eye doctor, Dr. Hilliard who thought she might have dry eyes and recommended OTC eye lubricating drops. No report of any glaucoma issues. She was also given new reading glasses. She reports that her vision in the eye is occasionally blurry due to the watery drainage. No hx trauma to the eye or contact lens use. No chemical exposure. She has some mild nasal congestion. No fever, chills, headache or other systemic symptoms. Vashti Isabel MD [address] [place], [address], [facility] 03/05/2023 08:48:00 OBGyn Episode No OBEpisode recorded.
[2025-01-05 08:04] VITALS: BP 130/82; PULSE 77; TEMP 36.8; O2SAT 99
--- NOTE | 2025-01-05 08:04 | AM.OFFWIN_ITS ---
Intake Vital Signs 01/05/25 08:04 Weight 139 lb BP 130/82 Blood Pressure Location Rt brachial Position Sitting Pulse 77 Pulse Source Pulse Oximeter Temp 98.3 F Temp Source Oral Pulse Oximetry (%) 99 Oxygen Delivery Method Room Air Intake Visit Reasons: EP-headaches, lt ear pain Intake Note: Patient here for headaches and left ear pain that started yesterday Patient Tobacco Use Status: Never used Tobacco Allergies No Known Allergies [No Known Allergies*] Allergy (Verified 01/05/25 08:06) Do you need a note to return to daycare/school/sports/work: No HPI HPI Comments History of Present Illness Details History of Present Illness - The patient is a 64-year-old female pr esenting with concern of a foreign object in the ear canal. - She reports potentially leaving a piec e of cotton in her left ear after cleaning a few days prior. - Tried using ear drops without successf ully removing the foreign body. - The ear is slightly sore but she has n o changes in hearing. - Past ear interventions include wax rem oval last year. Physical Exam General: Cooperative, healthy appearing, comfortable, no acute distress and well developed Orientation: Patient oriented x3 Limitations: No limitations Head: Normal to inspection Ears: Left ear canal with erythema, small white object in canal, hearing grossly normal bilaterally Nose: Normal external nose present Face and sinus: Normal facial exam Eyes: Appearance normal, both eyes and all related structures Neck: Normal visual inspection and Yes full ROM Respiratory: Normal respiratory effort and able to speak in complete sentences. Skin: No rashes or lesions noted Neuro: Patient oriented x3 Extremities: Normal to inspection [facility] Medical History Headache Encounter for general adult medical examination with abnormal findings URI (upper respiratory infection) Proteinuria Hematuria Left flank pain Excessive cerumen in right ear canal Infection of right ear Irritation of right eye Bleeding per rectum Blurring of vision Rash Postmenopausal bleeding Encounter to discuss test results COVID-19 virus infection Nasal congestion Myalgia Abdominal cramping Underweight due to inadequate caloric intake Gastric inflammation Pain in right wrist Dysphagia Nausea Dysphagia Altered bowel habits Acid reflux Hard stool Abdominal pain Postmenopausal vaginal bleeding Well woman exam with routine gynecological exam Ingrown toenail of left foot Toe infection Paronychia of great toe of left foot Paronychia of great toe of right foot Paronychia due to ingrown nail Paronychia History of COVID-19 Endocervical polyp GERD (gastroesophageal reflux disease) Arthritis of right wrist Scoliosis Hx of migraines History of iron deficiency anemia Surgical History Hx of esophagogastroduodenoscopy Hx of colonoscopy History of tonsillectomy Family History Father Diabetes mellitus Stomach cancer Mother HTN (hypertension) Afib Heart failure Maternal Grandfather CVD (cardiovascular disease) Maternal Grandmother Leukemia Paternal Grandfather Cancer Paternal Grandmother No problems noted. Brother No problems noted. Brother No problems noted. Brother No problems noted. Brother No problems noted. Brother No problems noted. Sister No problems noted. Sister No problems noted. Sister No problems noted. Social History Household Members: None Housing: Condominium Are you a primary emergency care tech to a significant other at home: No Do you presently have visiting nurse or other home services: No Alcohol intake: former Patient Tobacco Use Status: Never used Tobacco e-Cigarette/Vaping Use: Never Used Current occupational status: unemployed Sexual orientation: Straight/Heterosexual Gender identity: Female Cognitive needs: No Hearing needs: No Vision needs: No Review of Systems Const All systems reviewed & are unremarkable except as noted in HPI and below Physical Exam Vital Signs: Last Vital Signs Temp 98.3 F 01/05/25 08:04 Pulse 77 01/05/25 08:04 BP 130/82 01/05/25 08:04 Pulse Ox 99 01/05/25 08:04 Oxygen Delivery Method Room Air 01/05/25 08:04 Office Procedures Cerumen Removal Details: FB removal (cotton) From which ear canal was the cerumen removed: left Removal: irrigation Notes: patient tolerated procedure well, no complications and ear canal clear [id number] Irrigation/Lavage Assessment & Plan Assessment & Plan (1) Foreign body of ear, left: Code(s): T16.2XXA - Foreign body in left ear, initial encounter Qualifiers: Encounter type: initial encounter Qualified Code(s): T16.2XXA - Foreign body in left ear, initial encounter Plan: For the primary concern regarding a foreign body in the left ear canal, an examination and irrigation procedure was conducted, resulting in the removal of a small cotton piece. Although there is lingering mild soreness, no subsequent significant obstruction or infection was visible. The recommendation is to monitor for any adverse signs or pain, with advice to follow up with a primary care physician if needed, while acknowledging that any remaining fragments may exit naturally through routine ear hygiene practices. Patient was informed and verbally consented to the use of an ambient scribe for clinic note documentation during this visit. Coding Level of Care Code Est Pt Level 4 (23954) Diagnoses Foreign body of left ear, initial encounter T16.2XXA Encounter type: initial encounter CPT Codes Office Procedure - CPT: 29054-Gjk Irrigation/Lavage ([id number])
== END 2025-01-05 08:42 | disposition home or self-care (01) ==
PROVIDERS: PCP Internal Medicine; Visit Provider Physician Assistant
DX: T16.2XXA Foreign body in left ear, initial encounter (principal)

== ENCOUNTER → 2025-01-05 08:00 | Outpatient (BNVA) | payer OTHER, SELFPAY | PROVIDERS: PCP Internal Medicine | DX: T16.2XXA Foreign body in left ear, initial encounter (principal) | CPT/HCPCS: 99212 ==

== ENCOUNTER 2025-02-02 11:03 | Outpatient (AMB) | payer OTHER, SELFPAY ==
[2025-02-02 11:14] VITALS: BP 128/80; PULSE 74; RESP 16; TEMP 36.8; O2SAT 97; BMI 22.9
--- NOTE | 2025-02-02 11:14 | A.OFFPC_ITS ---
Vital Signs 02/02/25 11:14 Height 5 ft 6 in Weight 142 lb BMI 22.9 BP 128/80 Blood Pressure Location Rt brachial Position Sitting Respiration 16 Pulse 74 Pulse Source Pulse Oximeter Temp 98.2 F Temp Source Oral Pulse Oximetry (%) 97 Oxygen Delivery Method Room Air Intake Visit Reasons: Annual PE Allergies No Known Allergies [No Known Allergies*] Allergy (Verified 02/02/25 11:15) Medication List - Last Reconciled 02/02/25 by Rosio Chandler MD acetaminophen (Tylenol) 325 mg PO QID PRN Tobacco use date assessed: 02/02/25 Dental Screening Dental Screen Date: 02/02/25 Did you have a dental visit in the last 12 months?: No Did you have a dental problem in the last 6 months where you did not have access to dental care?: No Was dental information given to patient?: Patient has dentist HPI Annual PE HPI Details History of Present Illness - The patient is a 64-year-old female pr esenting for a physical exam appointment. - Osteopenia is documented, with a previ ous T-score of -2.3 improving to -2.2, as per the last recorded bone density test. - No current management for allergic rhi nitis, though symptoms include occasiona l itchy eyes. - Gastroesophageal reflux disease was pr eviously managed with pantoprazole; the patient has ceased medication with symptom improvement. - Constipation reported as resolved curr ently. - Tylenol is used as needed for episodic pain relief. Health Maintenance - Annual mammogram due; last conducted i n December of the previous year. - Colonoscopy was most recently performe d in 2022. - Annual OBGYN visit noted from the prev ious year with the next visit anticipated. - Bone density screening demonstrates os teopenia, with a slightly improved T- score from -2.3 in 2020 to -2.2. Medications - Tylenol as needed - Discontinued pantoprazole Diagnostic results - Bone density test: T-score improved to -2.2 - Labs from November of the previous year : Normal CBC, kidney function tests, and liver enzymes Patient Instructions - Schedule a mammogram as soon as possib le. - Consider antihistamine dtdl-ffm-gubumb r medication if allergy symptoms develop. - Fasting labs in the morning, avoiding food for 10 hours before the test. - Continue with calcium-rich diet and we ight-bearing exercises as previously advised. Review of Systems - General: No fever no chills - Neurological: No headaches no dizzin ess - Ear nose throat: No sore throat no hearing difficulty no ear pain - Cardiovascular: No syncope, no chest pain, no palpitations - Gastrointestinal: No nausea vomiting or diarrhea - Endocrine: No polyuria polydipsia no heat intolerance - Genitourinary: No dysuria - Skin: No new complaints Physical Exam General: Cooperative, healthy appearing, comfortable, no acute distress Head: Normal to inspection Ears: Within normal limit visually Nose: Normal external nose present Face and sinus: Normal facial exam Eyes: Appearance normal, extraocular movement intact pupils reactive Neck: Normal visual inspection and supple Respiratory: Normal respiratory effort and able to speak in complete sentences. Clear to auscultation, no stridor Cardiovascular: S1 and S2 Breast exam through OBGYN GI: Normal to inspection. Soft to palpation and nontender Skin: Turgor normal, no acute findings, no rash or moles needing to be checked Neuro: Patient oriented x3, motor sensory intact, balance intact, tandem pass Extremities: Normal to inspection, slight difficulty walking in a straight line due to boots [facility] Medical History Headache Encounter for general adult medical examination with abnormal findings URI (upper respiratory infection) Proteinuria Hematuria Left flank pain Excessive cerumen in right ear canal Infection of right ear Irritation of right eye Bleeding per rectum Blurring of vision Rash Postmenopausal bleeding Encounter to discuss test results COVID-19 virus infection Nasal congestion Myalgia Abdominal cramping Underweight due to inadequate caloric intake Gastric inflammation Pain in right wrist Dysphagia Nausea Dysphagia Altered bowel habits Acid reflux Hard stool Abdominal pain Postmenopausal vaginal bleeding Well woman exam with routine gynecological exam Ingrown toenail of left foot Toe infection Paronychia of great toe of left foot Paronychia of great toe of right foot Paronychia due to ingrown nail Paronychia History of COVID-19 Endocervical polyp GERD (gastroesophageal reflux disease) Arthritis of right wrist Scoliosis Hx of migraines History of iron deficiency anemia Surgical History Hx of esophagogastroduodenoscopy Hx of colonoscopy History of tonsillectomy Family History Father Diabetes mellitus Stomach cancer Mother HTN (hypertension) Afib Heart failure Maternal Grandfather CVD (cardiovascular disease) Maternal Grandmother Leukemia Paternal Grandfather Cancer Paternal Grandmother No problems noted. Brother No problems noted. Brother No problems noted. Brother No problems noted. Brother No problems noted. Brother No problems noted. Sister No problems noted. Sister No problems noted. Sister No problems noted. Social History Household Members: None Housing: Condominium Are you a primary healthcare advisory services manager to a significant other at home: No Do you presently have visiting nurse or other home services: No Alcohol intake: former Patient Tobacco Use Status: Never used Tobacco e-Cigarette/Vaping Use: Never Used Current occupational status: unemployed Sexual orientation: Straight/Heterosexual Gender identity: Female Cognitive needs: No Hearing needs: No Vision needs: No Questionnaire PHQ-9 Over the last 2 weeks, how often have you been bothered by any of the following problems? 1. Little interest or pleasure in doing things: not at all 2. Feeling down, depressed, or hopeless: not at all 3. Trouble falling or staying asleep, or sleeping too much: not at all 4. Feeling tired or having little energy: not at all 5. Poor appetite or overeating: not at all 6. Feeling bad about yourself - or that you are a failure or have let yourself or your family down: not at all 7. Trouble concentrating on things, such as reading the newspaper or watching television: not at all 8. Moving or speaking so slowly that other people could have noticed. Or the opposite - being so fidgety or restless that you have been moving around a lot more than usual: not at all 9. Thoughts that you would be better off or of hurting yourself in some way: not at all Total score: 0 Depression Screening Interpretation: Negative Depression Screening Done: Yes 91133 - PHQ-9 Billing: Yes Source: Developed by Drs. Bassem Yousif, Bekah Delacruz, Curly Lim and colleagues, with an educational tiffany from [employer]. Thrive Questionnaire Date Thrive assessed: 02/02/25 I am a: Patient What is your living situation today?: I have a steady place to live Within the past 12 months, did the food you bought not last and you didn't have the money to get more?: Never true Within the past 12 months, did you worry whether your food would run out before you got money to buy more?: Never true Do you have trouble paying for medicines?: No Do you have trouble getting transportation to medical appointments?: No Do you have trouble paying your heating and electricity bill?: No Do you have trouble taking care of your child, family member or friend?: No Do you have trouble with day-to-day activities such as bathing, preparing meals, shopping, managing finances, etc.?: No Are you currently unemployed and looking for a job?: No Are you interested in more education?: No Please select the resources that you would like help with: None Currently or been in a relationship where the following occur: No concerns reported THRIVE Score: 0 AUDIT C Alcohol Use Questionnaire (AUDIT-C) 1. How often do you have a drink containing alcohol?: Never 3. How often do you have six or more drinks on one occasion?: Never Total Score: 0 Score Reviewed/Action Taken: Yes XOCHITL-7 AMB Questionnaire XOCHITL-7 Date XOCHITL - 7 assessed: 02/02/25 Feeling nervous, anxious, or on edge: 0 = Not at all Not being able to stop or control worryin = Not at all Worrying too much about different things: 0 = Not at all Trouble relaxin = Not at all Being so restless that it is hard to sit still: 0 = Not at all Becoming easily annoyed or irritable: 0 = Not at all Feeling afraid as if something awful might happen: 0 = Not at all Total XOCHITL-7 score (0-4 normal; 5-9 mild; 10-14 moderate; 15-21 severe): 0 Source: Developed by Drs. Bassem Yousif, Bekah Delacruz, Curly Lim and colleagues, with an educational tiffany from [employer]. XOCHITL-7 Assessment Billing XOCHITL-7 Assessment Tool: XOCHITL-7 Assessment 79841 Physical exam (Primary Care) Vital Signs: Last Vital Signs Temp 98.2 F 02/02/25 11:14 Pulse 74 02/02/25 11:14 Resp 16 02/02/25 11:14 BP 128/80 02/02/25 11:14 Pulse Ox 97 02/02/25 11:14 Oxygen Delivery Method Room Air 02/02/25 11:14 BMI result Body Mass Index 22.9 Tobacco/Smoking Status: Tobacco use Status Tobacco use date assessed 02/02/25 02/02/25 11:16 Patient Tobacco Use Status Never used Tobacco 02/02/25 11:16 e-Cigarette/Vaping Use Never Used 02/02/25 11:16 PHQ-9: PHQ-9 Score PHQ-9: Total score 0 02/02/25 11:22 Depression Screening Interpretation: Negative Thrive Assessment: Date of Thrive Assessment Date Thrive assessed 02/02/25 02/02/25 11:16 Currently or been in a relationship where the following occur: No concerns reported Coding Level of Care Code Est Pt Level 3 (17245) Est Pt Prev Care 40-64y(61104) Diagnoses Encounter for general adult medical examination with abnormal findings Z00.01 Sneezing with watery eyes R06.7; H04.209 Vitamin D deficiency E55.9 Chronic GERD K21.9 Osteopenia, unspecified location M85.80 Osteopenia location: unspecified Lumbar pain M54.50 Constipation by delayed colonic transit K59.01 Additional Codes XOCHITL-7 Assessment Billing - XOCHITL-7 Assessment Tool: XOCHITL-7 Assessment 79133 ([id number]) PHQ-9 - 87627 - PHQ-9 Billing: Yes ([id number]) Assessment & Plan Assessment & Plan (1) Encounter for general adult medical examination with abnormal findings: Code(s): Z00.01 - Encounter for general adult medical examination with abnormal findings Category: Medical (2) Sneezing with watery eyes: Code(s): R06.7 - Sneezing; H04.209 - Unspecified epiphora, unspecified side Category: Medical (3) Vitamin D deficiency: Code(s): E55.9 - Vitamin D deficiency, unspecified Category: Medical (4) Chronic GERD: Code(s): K21.9 - Gastro-esophageal reflux disease without esophagitis Category: Medical (5) Osteopenia: Code(s): M85.80 - Other specified disorders of bone density and structure, unspecified site Category: Medical Qualifiers: Osteopenia location: unspecified Qualified Code(s): M85.80 - Other specified disorders of bone density and structure, unspecified site (6) Lumbar pain: Code(s): M54.50 - Low back pain, unspecified Category: Medical (7) Constipation by delayed colonic transit: Code(s): K59.01 - Slow transit constipation Category: Medical Plan History of Present Illness - The patient is a 64-year-old female presenting for a physical exam appointment. - Osteopenia is documented, with a previous T-score of -2.3 improving to -2.2, as per the last recorded bone density test. - No current management for allergic rhinitis, though symptoms include occasional itchy eyes. - Gastroesophageal reflux disease was previously managed with pantoprazole; the patient has ceased medication with symptom improvement. - Constipation reported as resolved currently. - Tylenol is used as needed for episodic pain relief. Health Maintenance - Annual mammogram due; last conducted in December of the previous year. - Colonoscopy was most recently performed in 2022. - Annual OBGYN visit noted from the previous year with the next visit anticipated. - Bone density screening demonstrates osteopenia, with a slightly improved T- score from -2.3 in 2020 to -2.2. Medications - Tylenol as needed - Discontinued pantoprazole Diagnostic results - Bone density test: T-score improved to -2.2 - Labs from November of the previous year: Normal CBC, kidney function tests, and liver enzymes Patient Instructions - Schedule a mammogram as soon as possible. - Consider antihistamine [id number] medication if allergy symptoms develop. - Fasting labs in the morning, avoiding food for 10 hours before the test. - Continue with calcium-rich diet and weight-bearing exercises as previously advised. Orders: Orders Complete Blood Count Auto Diff Today E55.9 - Vitamin D deficiency, unspecified, K21.9 - Gastro-esophageal reflux disease without esophagitis, K59.01 - Slow transit constipation, M54.50 - Low back pain, unspecified, M85.80 - Other specified disorders of bone density and structure, unspecified site, Z00.01 - Encounter for general adult medical examination with abnormal findings Comprehensive [place]. Panel Fast Today E55.9 - Vitamin D deficiency, unspecified, K21.9 - Gastro-esophageal reflux disease without esophagitis, K59.01 - Slow transit constipation, M54.50 - Low back pain, unspecified, M85.80 - Other specified disorders of bone density and structure, unspecified site, Z00.01 - Encounter for general adult medical examination with abnormal findings Lipid Panel Today E55.9 - Vitamin D deficiency, unspecified, K21.9 - Gastro- esophageal reflux disease without esophagitis, K59.01 - Slow transit constipation, M54.50 - Low back pain, unspecified, M85.80 - Other specified disorders of bone density and structure, unspecified site, Z00.01 - Encounter for general adult medical examination with abnormal findings Vitamin D 25-OH (D2 and D3) Today E55.9 - Vitamin D deficiency, unspecified, K21.9 - Gastro-esophageal reflux disease without esophagitis, K59.01 - Slow transit constipation, M54.50 - Low back pain, unspecified, M85.80 - Other specified disorders of bone density and structure, unspecified site, Z00.01 - Encounter for general adult medical examination with abnormal findings TSH reflex Free T4 Today E55.9 - Vitamin D deficiency, unspecified, K21.9 - Gastro-esophageal reflux disease without esophagitis, K59.01 - Slow transit constipation, M54.50 - Low back pain, unspecified, M85.80 - Other specified disorders of bone density and structure, unspecified site, Z00.01 - Encounter for general adult medical examination with abnormal findings
== END 2025-02-02 11:33 | disposition home or self-care (01) ==
LOC: HO.HMCC 11:04
PROVIDERS: PCP Internal Medicine; Visit Provider Internal Medicine
DX: Z00.00 Encounter for general adult medical examination without abnormal findings (principal); R06.7 Sneezing; H04.203 Unspecified epiphora, bilateral; E55.9 Vitamin D deficiency, unspecified; K21.9 Gastro-esophageal reflux disease without esophagitis; M85.80 Other specified disorders of bone density and structure, unspecified site; M54.50 Low back pain, unspecified; K59.01 Slow transit constipation

== ENCOUNTER → 2025-02-02 11:03 | Outpatient (BNVA) | payer OTHER, SELFPAY | PROVIDERS: PCP Internal Medicine; Visit Provider Internal Medicine | DX: Z00.01 Encounter for general adult medical examination with abnormal findings (principal); R06.7 Sneezing; H04.209 Unspecified epiphora, unspecified side; E55.9 Vitamin D deficiency, unspecified; K21.9 Gastro-esophageal reflux disease without esophagitis; M85.80 Other specified disorders of bone density and structure, unspecified site; M54.50 Low back pain, unspecified; K59.01 Slow transit constipation | CPT/HCPCS: 96127; 99212; 99396 ==

== ENCOUNTER 2025-02-03 07:00 | Outpatient (REF) | payer OTHER, SELFPAY ==
[2025-02-03 10:21] LABS: MANUAL DIFF FLAG NO
[2025-02-03 10:37] LABS: Basophils Percent Auto 0.7 % (0-2); Eosinophils Absolute Auto 0.1 X10*3/uL (0.0-0.4); Eosinophils Percent Auto 1.1 % (0-4); Hematocrit 39.6 % (37.0-47.0); Hemoglobin 12.8 g/dl (12.0-16.0); Imm Gran Abs Auto 0.02 X10*3/uL (0.00-0.03); Imm Gran Pct Auto 0.4 % (0.0-0.4); Lymphocytes Absolute Auto 1.6 X10*3/uL (1.2-4.9); Mean Corpuscular HGB Conc 32.3 g/dl (31.0-35.0); Mean Corpuscular Hemoglobin 30.7 pg (27.0-33.0); Mean Platelet Volume 9.9 fL (9.4-12.3); Monocytes Absolute Auto 0.5 X10*3/uL (0.1-1.2); Monocytes Percent Auto 8.6 % (2-11); Neutrophils Absolute Auto 3.2 x10*3/uL (2.0-8.3); Neutrophils Percent Auto 59.2 % (45-73); Platelet Count 297 X10*3/uL (160-400); Red Blood Count 4.17 X10*6/uL (4.20-5.50); Red Cell Distribution Width 13.1 % (11.0-16.0); White Blood Count 5.4 X10*3/uL (4.8-10.8)
[2025-02-03 10:57] LABS: Alanine Aminotransferase 30 U/L (0-31); Albumin Level 4.4 g/dL (3.5-5.0); Anion Gap 12 (12-20); Aspartate Amino Transferase 24 U/L (5-31); Bilirubin Total 0.3 mg/dL (0.0-1.0); Blood Urea Nitrogen 23 mg/dL (9-16); Calcium 9.4 mg/dL (8.4-10.2); Carbon Dioxide 26 mmol/L (22-29); Chloride 107 mmol/L (96-108); Cholesterol 235 mg/dL (<200); Estimated Glomerular Filt Rate > 60; Glucose Fasting 88 mg/dL (60-99); HDL Cholesterol 99 mg/dL (>40); LDL Cholesterol Calculated 122 mg/dL (<100); Potassium 3.9 mmol/L (3.3-5.1); Sodium 141 mmol/L (135-145); Total Protein 7.6 g/dL (6.5-8.0); Triglycerides 74 mg/dL (<150)
[2025-02-03 11:11] LABS: TSH reflex Free T4 1.69 uIU/mL (0.32-4.0)
[2025-02-03 11:32] LABS: Alkaline Phosphatase 77 U/L (39-117)
[2025-02-07 14:53] LABS: Vitamin D 25-OH, D2 20 ng/mL; Vitamin D 25-OH, D3 7 ng/mL; Vitamin D 25-OH, Total 27 ng/mL (30-100)
== END 2025-02-03 07:01 | disposition home or self-care (01) ==
LOC: HO.HMGCLDS 07:00
PROVIDERS: PCP Internal Medicine; Visit Provider Internal Medicine
DX: Z00.01 Encounter for general adult medical examination with abnormal findings (principal); K21.9 Gastro-esophageal reflux disease without esophagitis; E55.9 Vitamin D deficiency, unspecified; M85.80 Other specified disorders of bone density and structure, unspecified site; M54.50 Low back pain, unspecified; K59.01 Slow transit constipation
CPT/HCPCS: 36415; 80053; 80061; 82306; 84443; 85025

== ENCOUNTER 2025-02-10 10:44 | Outpatient (REF) | payer OTHER, SELFPAY ==
--- OUTSIDE RECORDS SUMMARY | 2025-02-10 12:52 | XMS_ITS | Data Portability ---
Author Organization [facility], [address] Address [address] [place] [address] Care Team Providers Care Scallop Shucker Name Role Phone KRISTIN KUConstantine Primary Care Provider [phone] Assessment No assessment recorded. Plan of Treatment Reminders Order Date Submit Date Provider Last Modified By Organization Details Last Modified Time Details Appointments None recorded. Lab None recorded. Referral None recorded. Procedures None recorded. Surgeries None recorded. Imaging None recorded. Medication Orders Pataday Twice Daily Relief 0.1 % eye drops 2022 023 [id number], [address] [place], [address], 3 08:36:30 ciprofloxac in 0.3 % eye drops 2022 023 [id number], [address] [place], [address], 3 08:08:23 Patient TargetsNo targets recorded. Patient Instructions Encounter Date Encounter Id Patient Instructions Last Modified By Organization Details Last Modified Time 02/08/2023 [id number] Based on your presentation and exam - [...] around your face. Thank you for using [facility] today, please feel free to contact us with any questions or concerns. [email or web address] Not available 02/08/2023 08:27:16 03/05/2023 [id number] allergic conjunctivitis in teens: care instructions [email or web address] Not available 03/05/2023 08:39:28 It is possible [...] follow-up with Dr. Hilliard your eye doctor. [email or web address] Not available 03/05/2023 08:39:28 Reason for Referral None Reported. Problems No Known Problems Procedures Surgical History Date Name Laterality Status Provider Name and Address Organization Details Recorded Time tonsillectomy completed JALEESA MANN - [facility] 02/08/2023 08:09:40 Imaging Results None recorded. Procedure [...] Updated DateTime 3 167.64 cm 19.4 kg/m2 28279.0 8 g 7 18 /min 99 % 99 % 78 /min 98.3 [degF] 133 mm[Hg] 90 mm[Hg] JALEESA GOVEA [place] - [facility] 3 08:10:52 Date Recorded Body height Body mass index (BMI) Body weight Pain severity - 0-10 verbal numeric rating [Score] - Reported Body temperature Respiratory rate Oxygen saturation Oxygen saturation in Arterial blood by Pulse oximetry Heart rate Systolic blood pressure Diastolic blood pressure Provider Name and Address Organization Details Last Updated DateTime 3 167.64 cm 19.4 kg/m2 16292.0 8 g 7 97.3 [degF] 18 /min 100 % 100 % 68 /min 123 mm[Hg] 81 mm[Hg] Marisel MANN - [facility] 3 08:10:06 Social History Question Answer Notes LastModified by Organizat ion Details LastModified Time Tobacco Smoking Status Never Smoker JALEESA hoffman [place] - [facility] 02/08/2023 08:09:53 What Is Your Level Of Alcohol Consumption? None [email or web address] Information not available 02/08/2023 Do You Use Any Illicit Or Recreational Drugs? No [email or web address] Information not available 02/08/2023 Have You Recently Traveled Abroad? No [email or web address] Information not available 02/08/2023 Do You Or Have You Ever Used Any Other Forms Of Tobacco Or Nicotine? No [email or web address] Information not available 02/08/2023 Sex: Unknown Functional Status None recorded. Mental Status None recorded. Family History Relationship Description Onset Age of this Age Resolved Age Notes LastModified by Organization Details LastModified Time Father No current problems or disability [email or web address] Not available 02/08 08:09:41 Mother No current problems or disability [email or web address] Not available 02/08 08:09:41 Medical History No [...] SNOMED-CT Code Diagnosis ICD10 Code Diagnosis Note [id number] [address] [facility] [place] [address] 01/28/2021 15:13:50 01/28/2021 16:03:26 [id number] [facility] [facility] [place] [address] 09/22/2018 08:02:35 09/22/2018 09:19:06 [id number] [address] [facility] [place] [address] 0 02/15/2019 08:04:43 02/15/2019 08:21:25 [id number] [address] [place] [address] 08/07/2019 08:08:23 08/07/2019 08:44:46 [id number] [address] [place] [address] 04/26/2017 09:28:49 04/26/2017 10:16:13 [id number] [address] [place] [address] 07/10/2018 07:55:53 07/10/2018 09:09:51 [id number] [address] [place] [address] 09/23/2019 18:34:26 09/23/2019 18:50:22 [id number] [address] [facility] DHAVAL Mccauley [address] 02/03/2017 13:05:31 02/03/2017 13:56:03 [id number] [address] [facility] DHAVAL [place]ccauley [address] 09/24/2018 07:51:47 09/24/2018 08:24:12 [id number] [address] [facility] DHAVAL [place]ccauley [address] 12/27/2018 12:24:45 12/27/2018 12:47:59 [id number] [address] [facility] DHAVAL [place]ule[place] [address] 07/16/2020 15:29:23 07/16/2020 17:14:41 [id number] [address] [facility] DHAVAL [place]ccauley [address] 11/26/2018 08:06:47 11/26/2018 08:35:35 [id number] [address] [facility] DHAV[place]y [address] 01/27/2021 08:25:50 01/27/2021 09:21:26 [id number] JOHNATHAN PATRICK [address] [facility] [place] [address] 02/08/2023 08:03:39 02/08/2023 08:34:37 Hordeolum externum of lower eyelid of left eye [id number] 42590 H00.015 Differenti al - was a FB that has scratched the left lower lateral eyelid. Does not appear to be vesicular. No involvment in surroundin g skin or cornea. Would advise Eye doctor in 5 days if not relief. Elevated blood-pressure reading without diagnosis of hypertension [id number] R03.0 You blood pressure was elevated during [...] to discuss the results of your journal. [id number] Vashti Isabel MD [address] [place] [address] 03/05/2023 08:03:48 03/05/2023 08:40:59 Acute atopic conjunctivitis of left eye [id number] 53080 H10.12 Health Concerns Section Related Observation LastModified by Organization Detai ls LastModified Time None Recorded Concern Status LastModified by Organization Details LastModified Time None Recorded Advance Directives Directive None Recorded Payers Encounter Date Sequence Insurance Name Policy Number Policy Monk Covered Member ID Monk Member ID Guarantor Name 07/16/2020 1 [facility] (MEDICAID REPLACEMENT - HMO) [place] Tammi S Christopher [id number] Tammi S Christopher 01/27/2021 1 [facility] (MEDICAID REPLACEMENT - HMO) [place] Tammi S Christopher [id number] Tammi S Christopher 01/28/2021 1 [facility] (MEDICAID REPLACEMENT - HMO) [place] Tammi S Christopher [id number] Tammi S Christopher 02/08/2023 1 [facility] (MEDICAID REPLACEMENT - HMO) [place] Tammi S Christopher [id number] Tammi S Christopher 03/05/2023 1 [facility] (MEDICAID REPLACEMENT - HMO) [place] Tammi S Christopher [id number] Tammi S Christopher Notes Date Note Type [...] or shingles. JOHNATHAN PATRICK [address] [place], [address], [facility] 02/08/2023 08:31:52 3 text/html Eye problemsReported [...] Vashti Isabel MD [address] [place], [address], [facility] 03/05/2023 08:48:00 OBGyn Episode No OBEpisode recorded.
== END 2025-02-10 10:45 | disposition home or self-care (01) ==
LOC: HO.MAMMO 10:44
PROVIDERS: PCP Internal Medicine; Visit Provider Internal Medicine
DX: Z12.31 Encounter for screening mammogram for malignant neoplasm of breast (principal)
CPT/HCPCS: 77063; 77067

== ENCOUNTER → 2025-02-10 11:15 | Outpatient (BNV) | payer OTHER, SELFPAY | PROVIDERS: PCP Internal Medicine; Visit Provider Internal Medicine | DX: Z12.31 Encounter for screening mammogram for malignant neoplasm of breast (principal) | CPT/HCPCS: 77063; 77067 ==

== ENCOUNTER 2025-10-22 07:06 | Outpatient (AMB) | payer OTHER, SELFPAY ==
--- OUTSIDE RECORDS SUMMARY | 2025-10-22 07:08 | XMS_ITS | Data Portability ---
Author Organization [facility]ATHAN [facility] Address [address] [place] [address] Care Team Providers Care Die Assembler Name Role Phone LENA KU Primary Care Provider [phone] Assessment No assessment recorded. Plan of Treatment Reminders Order Date Submit Date Provider Last Modified By Organization Details Last Modified Time Details Appointments None recorded. Lab None recorded. Referral None recorded. Procedures None recorded. Surgeries None recorded. Imaging None recorded. Medication Orders Pataday Twice Daily Relief 0.1 % eye drops 2022 023 [facility] [id number], [address] [place], [address], 3 08:36:30 ciprofloxac in 0.3 % eye drops 2022 023 [facility] [id number], [address] [place], [address], 3 08:08:23 Patient TargetsNo targets recorded. Patient Instructions Encounter Date Encounter Id Patient Instructions Last Modified By Organization Details Last Modified Time 02/08/2023 [id number] Based on your presentation and exam - [...] around your face. Thank you for using [facility] today, please feel free to contact us with any questions or concerns. [email or web address] Not available 02/08/2023 08:27:16 03/05/2023 [id number] Allergic Conjunctivitis: Care Instructions [email or web address] Not available 03/05/2023 08:39:28 It is possible [...] follow-up with Dr. Hilliard your eye doctor. [email or web address] Not available 03/05/2023 08:39:28 Reason for Referral None Reported. Problems No Known Problems Procedures Surgical History Date Name Laterality Status Provider Name and Address Organization Details Recorded Time tonsillectomy completed JALEESA MANN - [facility] 02/08/2023 08:09:40 Imaging Results None recorded. Procedure [...] [Score] - Reported Respiratory rate Oxygen saturation Heart rate Body temperature Systolic And Diastolic Provider Name and Address Organization Details Last Updated DateTime 3 167.64 cm 19.4 kg/m2 18564.0 8 g 7 18 /min 99 % 78 /min 98.3 [degF] 133/90 mm[Hg] JALEESA GOVEA [place] [facility] 08:10:52 Date Recorded Body height Body mass index (BMI) Body weight Pain severity - 0-10 verbal numeric rating [Score] - Reported Body temperature Respiratory rate Oxygen saturation Heart rate Systolic And Diastolic Provider Name and Address Organization Details Last Updated DateTime 3 167.64 cm 19.4 kg/m2 58499.0 8 g 7 97.3 [degF] 18 /min 100 % 68 /min 123/81 mm[Hg] Marisel Chase [place] [facility] 3 08:10:06 Social History Question Answer Notes LastModified by [employer] Details LastModified Time Tobacco Smoking Status Never Smoker JALEESA hoffman [place] [facility] 02/08/2023 08:09:53 Have You Recently Traveled Abroad? No [email or web address] Information not available 02/08/2023 Sex: Unknown Functional Status Question Answer Note LastModified by [employer] Details LastModified Time Do you use any illicit or recreational drugs? No [email or web address] Information not available 02/08/2023 Do you or have you ever used any other forms of tobacco or nicotine? No [email or web address] Information not available 02/08/2023 What is your level of alcohol consumption? None [email or web address] Information not available 02/08/2023 Mental Status None recorded. Family History Relationship Description Onset Age of this Age Resolved Age Notes LastModified by Organization Details LastModified Time Father No current problems or disability [email or web address] Not available 02/08 08:09:41 Mother No current problems or disability [email or web address] Not available 02/08 08:09:41 Medical History No [...] Diagnosis SNOMED-CT Code Diagnosis ICD10 Code Diagnosis IMO Codes Diagnosis Note [id number] [address] [place] [address] 01/28/2021 15:13:50 01/28/2021 16:03:26 [id number] [address] [place] [address] 09/22/2018 08:02:35 09/22/2018 09:19:06 [id number] [address] [place] [address] 02/15/2019 08:04:43 02/15/2019 08:21:25 [id number] [address] [place] [address] 08/07/2019 08:08:23 08/07/2019 08:44:46 [id number] [address] [place] [address] 04/26/2017 09:28:49 04/26/2017 10:16:13 [id number] [address] [place] [address] 07/10/2018 07:55:53 07/10/2018 09:09:51 [id number] [address] [place] [address] 09/23/2019 18:34:26 09/23/2019 18:50:22 [id number] [address] [place] [address] 02/03/2017 13:05:31 02/03/2017 13:56:03 [id number] [address] [place] [address] 09/24/2018 07:51:47 09/24/2018 08:24:12 [id number] [address] [place] [address] 12/27/2018 12:24:45 12/27/2018 12:47:59 [id number] [address] [place] [address] 07/16/2020 15:29:23 07/16/2020 17:14:41 [id number] [address] [place] [address] 11/26/2018 08:06:47 11/26/2018 08:35:35 [id number] [address] [place] [address] 01/27/2021 08:25:50 01/27/2021 09:21:26 [id number] JOHNATHAN PATRICK [address] [place] [address] 02/08/2023 08:03:39 02/08/2023 08:34:37 Hordeolum externum of lower eyelid of left eye [id number] 96033 H00.015 Differenti al - was a FB that has scratched the left lower lateral eyelid. Does not appear to be vesicular. No involvment in surroundin g skin or cornea. Would advise Eye doctor in 5 days if not relief. Elevated blood-pressure reading without diagnosis of hypertension [id number] R03.0 You blood pressure was elevated during [...] to discuss the results of your journal. [id number] Vashti Isabel MD [address] [address] 03/05/2023 08:03:48 03/05/2023 08:40:59 Acute atopic conjunctivitis of left eye [id number] 34733 H10.12 Health Concerns Section Related Observation LastModified by Organization Detai ls LastModified Time None Recorded Concern Status LastModified by Organization Details LastModified Time None Recorded Advance Directives Directive None Recorded Payers Insurance Date Sequence Insurance Name Policy Number Policy Monk Covered Member ID Monk Member ID Guarantor Name 03/05/2023 1 [facility] (MEDICAID REPLACEMENT - HMO) MICKIE Malagon [id number] Tammi Malagon Notes Date Note Type Note Provider Name and Address Organization Details Recorded Time 02/08/2023 text/html Eye problemsRepo rted by PatientHPIFor eye symptoms, patient reportsredness,foreign body sensation,discharge,tomasz kathie, anditchingbut reportsno sensitivity to light. For source of patient information, patient reportsinformation obtained from patientandpatient arrived at urgent care ambulatory. For location, patient reportsleft. For severity, patient reportsmild. For onset/timing, patient [id number]. For modifying factors, patient reportsotc medication.The patient reports had dental work done on [...] viral keratitis or shingles. JOHNATHAN PATRICK [address] [place], [address], [place] - [facility] 02/08/2023 08:31:52 03/05/2023 text/html Eye problemsRepo rted by PatientHPIFor eye symptoms, patient reportsredness,foreign body sensation,watery, anditching(irritated. minor light sensitivity. occasional tearing. no eye trauma or contact lens use.). For source of patient information, patient reportsinformation obtained from patientandpatient arrived at urgent care ambulatory. For location, patient reportsleft. For severity, patient reportsmild. For onset/timing, patient [id number]. For modifying factors, patient reportsnothing gives reliefandnew glasses. For context, (mild nasal congestion.).63 year old female presenting for evaluation of [...] symptoms. Vashti Isabel MD [address] [place], [address], [employer] [facility] 03/05/2023 08:48:00 OBGyn Episode No OBEpisode recorded.
[2025-10-22 07:12] VITALS: BP 122/80; PULSE 83; TEMP 36.2; O2SAT 98; BMI 23.4
--- NOTE | 2025-10-22 07:12 | AM.OFFWIN_ITS ---
Intake Vital Signs 10/22/25 07:12 Height 5 ft 6 in Weight 145 lb BMI 23.4 BP 122/80 Blood Pressure Location Rt brachial Position Sitting Pulse 83 Pulse Source Pulse Oximeter Temp 97.2 F Temp Source Oral Pulse Oximetry (%) 98 Oxygen Delivery Method Room Air Intake Visit Reasons: EP poked lt lower leg with pen, infected? Intake Note: Patient presents c/o area on left lower leg that was poked with a pen last night. Patient Tobacco Use Status: Never used Tobacco Allergies No Known Allergies (No Known Allergies*) Allergy (Verified 10/22/25 07:14) HPI HPI Comments History of Present Illness Details 65-year-old female who presented to the walk-in clinic complaining of a small wound to her left leg. Patient states she felt a pricking sensation to her left leg last night around 8:00 p.m. while sitting on her couch. She states she saw a pin sticking out of her couch and believes that the pin might have picked her. She states she has a very small wound to the area with mild surrounding redness and some soreness. She denies any fevers or chills. She denies any purulent drainage. She denies any muscle stiffness/pain. She states she has been applying antibiotic ointment to the area and has kept the area covered with a bandage. Patient believes her Tdap is up-to-date - per chart review, she last received Tdap in January of 2024. [facility] Medical History Headache Encounter for general adult medical examination with abnormal findings URI (upper respiratory infection) Proteinuria Hematuria Left flank pain Excessive cerumen in right ear canal Infection of right ear Irritation of right eye Bleeding per rectum Blurring of vision Rash Postmenopausal bleeding Encounter to discuss test results COVID-19 virus infection Nasal congestion Myalgia Abdominal cramping Underweight due to inadequate caloric intake Gastric inflammation Pain in right wrist Dysphagia Nausea Dysphagia Altered bowel habits Acid reflux Hard stool Abdominal pain Postmenopausal vaginal bleeding Well woman exam with routine gynecological exam Ingrown toenail of left foot Toe infection Paronychia of great toe of left foot Paronychia of great toe of right foot Paronychia due to ingrown nail Paronychia History of COVID-19 Endocervical polyp GERD (gastroesophageal reflux disease) Arthritis of right wrist Scoliosis Hx of migraines History of iron deficiency anemia Surgical History Hx of esophagogastroduodenoscopy Hx of colonoscopy History of tonsillectomy Family History Father Diabetes mellitus Stomach cancer Mother HTN (hypertension) Afib Heart failure Maternal Grandfather CVD (cardiovascular disease) Maternal Grandmother Leukemia Paternal Grandfather Cancer Paternal Grandmother No problems noted. Brother No problems noted. Brother No problems noted. Brother No problems noted. Brother No problems noted. Brother No problems noted. Sister No problems noted. Sister No problems noted. Sister No problems noted. Social History Household Members: None [facility] Are you a primary customer care consultant to a significant other at home: No Do you presently have visiting nurse or other home services: No Alcohol intake: former Patient Tobacco Use Status: Never used Tobacco e-Cigarette/Vaping Use: Never Used Current occupational status: unemployed Sexual orientation: Straight/Heterosexual Gender identity: Female Cognitive needs: No Hearing needs: No Vision needs: No Review of Systems Const All systems reviewed & are unremarkable except as noted in HPI and below Reports no additional complaints Eyes Reports no additional complaints ENT Reports no additional complaints Card Reports no additional complaints Resp Reports no additional complaints GI Reports no additional complaints Reports no additional complaints Musc Reports no additional complaints Skin/Breast Reports system reviewed and no additional complaints, except as documented Neuro Reports no additional complaints Psych Reports no additional complaints Endo Reports no additional complaints Jose M/Lymph Reports no additional complaints Aller/Immun Reports no additional complaints Physical Exam Exam Exam: Vital signs reviewed. Constitutional: Non-toxic appearing. No acute distress. Well-developed and well-nourished. HEENT: Normocephalic and atraumatic. PERRL/EOMI. Skin: There is an extremely small puncture wound to the lateral aspect of the left mid calf with an approximately 1 x 1 cm area of surrounding erythema without fluctuance/induration or purulent drainage. Neck: Full and painless range of motion. Cardio: Regular rate. No lower extremity edema. No JVD. Pulmonary: No respiratory distress. No accessory muscle usage. Musculoskeletal: Normal range of motion in joints throughout the body. No deformity or other signs of injury. Neuro: Alert and oriented x4. Cranial nerves 2-12 grossly intact. No focal deficits appreciated. Psych: Normal mood and affect. Vital Signs: Last Vital Signs Temp 97.2 F 10/22/25 07:12 Pulse 83 10/22/25 07:12 BP 122/80 10/22/25 07:12 Pulse Ox 98 10/22/25 07:12 Oxygen Delivery Method Room Air 10/22/25 07:12 BMI result Body Mass Index 23.4 Assessment & Plan Assessment & Plan (1) Puncture wound of left lower leg: Code(s): S81.832A - Puncture wound without foreign body, left lower leg, initial encounter Qualifiers: Encounter type: initial encounter Qualified Code(s): S81.832A - Puncture wound without foreign body, left lower leg, initial encounter Plan 65-year-old female who presented to the walk-in clinic complaining of a small wound to her left leg from a pen prick that occurred last night around 8:00 p.m. On physical examination, there is a tiny puncture wound to the lateral aspect of the left calf with minimal surrounding erythema, which likely represents a minor inflammatory response rather than infection given the area does not appear to be cellulitic. There is no fluctance/induration or purulent drainage and there does not appear to be any retained foreign bodies. Patient is up-to-date on her tetanus vaccination. Patient was reassured that the wound looks clean and does not appear to be infected at this time. She was encouraged to keep the area clean with soap and water and apply antibiotic ontment and keep area covered with a bandage. She was instructed to return to the walk-in clinic if she were to develop worsening erythema, purulent drainage, or fevers/chills. Patient verbalized understanding and is agreeable with the plan. Coding Level of Care Code Est Pt Level 3 (43433) Diagnoses Puncture wound of left lower leg, initial encounter S81.832A Encounter type: initial encounter
== END 2025-10-22 07:54 | disposition home or self-care (01) ==
PROVIDERS: PCP Internal Medicine; Visit Provider Physician Assistant Medical
DX: S81.832A Puncture wound without foreign body, left lower leg, initial encounter (principal)

== ENCOUNTER → 2025-10-22 07:06 | Outpatient (BNVA) | payer OTHER, SELFPAY | PROVIDERS: PCP Internal Medicine; Visit Provider Physician Assistant Medical | DX: S81.832A Puncture wound without foreign body, left lower leg, initial encounter (principal) | CPT/HCPCS: 99212 ==

== ENCOUNTER 2025-10-25 07:13 | Outpatient (AMB) | payer OTHER, SELFPAY ==
[2025-10-25 07:15] VITALS: BP 110/72; PULSE 68; TEMP 36.5; O2SAT 99; BMI 23.4
--- NOTE | 2025-10-25 07:15 | AM.OFFWIN_ITS ---
Intake Vital Signs 10/25/25 07:15 Height 5 ft 6 in Weight 145 lb BMI 23.4 BP 110/72 Blood Pressure Location Rt brachial Position Sitting Pulse 68 Pulse Source Pulse Oximeter Temp 97.7 F Temp Source Oral Pulse Oximetry (%) 99 Oxygen Delivery Method Room Air Intake Visit Reasons: EP-lt leg red spot soreness Intake Note: Patient returns c/o spot on left lower leg that does not seem to be getting better - patient felt a pen prick when she was at home on evening, patient was seen on 10/22. Patient Tobacco Use Status: Never used Tobacco Allergies No Known Allergies (No Known Allergies*) Allergy (Verified 10/25/25 07:17) HPI HPI Comments History of Present Illness Details 65-year-old female presents to the walk- in clinic with concern for a small puncture wound on the left lower leg that she states is not improving. She reports feeling a ?pen-prick? sensation at home on evening. She was evaluated on 10/22 and instructed to keep the area clean and dry and to apply Bacitracin ointment twice daily. She denies fever, chills, nausea, vomiting, or pain. States the area appears more red compared to Saturday and is concerned it may not be healing properly. [facility] Medical History (Updated 10/25/25 @ 07:32 by Bita Juan NP) Puncture wound Headache Encounter for general adult medical examination with abnormal findings URI (upper respiratory infection) Proteinuria Hematuria Left flank pain Excessive cerumen in right ear canal Infection of right ear Irritation of right eye Bleeding per rectum Blurring of vision Rash Postmenopausal bleeding Encounter to discuss test results COVID-19 virus infection Nasal congestion Myalgia Abdominal cramping Underweight due to inadequate caloric intake Gastric inflammation Pain in right wrist Dysphagia Nausea Dysphagia Altered bowel habits Acid reflux Hard stool Abdominal pain Postmenopausal vaginal bleeding Well woman exam with routine gynecological exam Ingrown toenail of left foot Toe infection Paronychia of great toe of left foot Paronychia of great toe of right foot Paronychia due to ingrown nail Paronychia History of COVID-19 Endocervical polyp GERD (gastroesophageal reflux disease) Arthritis of right wrist Scoliosis Hx of migraines History of iron deficiency anemia Surgical History Hx of esophagogastroduodenoscopy Hx of colonoscopy History of tonsillectomy Family History Father Diabetes mellitus Stomach cancer Mother HTN (hypertension) Afib Heart failure Maternal Grandfather CVD (cardiovascular disease) Maternal Grandmother Leukemia Paternal Grandfather Cancer Paternal Grandmother No problems noted. Brother No problems noted. Brother No problems noted. Brother No problems noted. Brother No problems noted. Brother No problems noted. Sister No problems noted. Sister No problems noted. Sister No problems noted. Social History Household Members: None Housing: Condominium Are you a primary health care sanitary technician to a significant other at home: No Do you presently have visiting nurse or other home services: No Alcohol intake: former Patient Tobacco Use Status: Never used Tobacco e-Cigarette/Vaping Use: Never Used Current occupational status: unemployed Sexual orientation: Straight/Heterosexual Gender identity: Female Cognitive needs: No Hearing needs: No Vision needs: No Review of Systems Const All systems reviewed & are unremarkable except as noted in HPI and below Physical Exam Vital Signs: Last Vital Signs Temp 97.7 F 10/25/25 07:15 Pulse 68 10/25/25 07:15 BP 110/72 10/25/25 07:15 Pulse Ox 99 10/25/25 07:15 Oxygen Delivery Method Room Air 10/25/25 07:15 BMI result Body Mass Index 23.4 Const General: no acute distress Orientation/consciousness: patient oriented x3 Skin Other: Left lower leg: small puncture wound present; mild surrounding erythema; no drainage; no warmth; no tenderness to palpation. Neuro General: patient oriented x3 Assessment & Plan Assessment & Plan (1) Puncture wound: Code(s): T14.8XXA - Other injury of unspecified body region, initial encounter Plan: Discontinue Bacitracin. Start Mupirocin 2% ointment: apply BID to affected area. Continue to keep the area clean and dry. Educated patient on signs of infection: increased redness, swelling, warmth, purulent drainage, fevers, or increasing pain. Return to clinic or seek care sooner if symptoms worsen or do not improve over the next few days. No need for PO Abx at this time, if wound worsening will consinder Abx then. Medications: New mupirocin 2% 1 appl topical BID 15 grams 0RF T14.8XXA - Other injury of unspecified body region, initial encounter Coding Level of Care Code Est Pt Level 4 (20139) Diagnoses Puncture wound T14.8XXA Time Spent (min) 20
--- OUTSIDE RECORDS SUMMARY | 2025-10-25 07:16 | XMS_ITS | Data Portability ---
Author Organization [facility]ATH[facility] Address [address] [place] [address] Care Team Providers Care Online Content Developer Name Role Phone LENA KU Primary Care Provider Assessment No assessment recorded. Plan of Treatment Reminders Order Date Submit Date Provider Last Modified By Organization Details Last Modified Time Details Appointments None recorded. Lab None recorded. Referral None recorded. Procedures None recorded. Surgeries None recorded. Imaging None recorded. Medication Orders Pataday Twice Daily Relief 0.1 % eye drops 2022 023 [facility] #[id number], [address] [place], [address], 3 08:36:30 ciprofloxac in 0.3 % eye drops 2022 023 [facility] #[id number], [address] [place], [address], 3 08:08:23 Patient TargetsNo targets recorded. Patient Instructions Encounter Date Encounter Id Patient Instructions Last Modified By Organization Details Last Modified Time 02/08/2023 [id number] Based on your presentation and exam - [...] around your face. Thank you for using [facility] today, please feel free to contact us with any questions or concerns. [email or web address] Not available 02/08/2023 08:27:16 03/05/2023 [id number] Allergic Conjunctivitis: Care Instructions [email or web address] Not available 03/05/2023 08:39:28 It is possible [...] follow-up with Dr. Hilliard your eye doctor. [email or web address] Not available 03/05/2023 08:39:28 Reason for Referral None Reported. Problems No Known Problems Procedures Surgical History Date Name Laterality Status Provider Name and Address Organization Details Recorded Time tonsillectomy completed JALEESA MANN - [facility] 02/08/2023 08:09:40 Imaging Results None recorded. Procedure [...] Updated DateTime 3 167.64 cm 19.4 kg/m2 19398.0 8 g 7 18 /min 99 % 78 /min 98.3 [degF] 133/90 mm[Hg] JALEESA GOVEA [place] [facility] 08:10:52 Date Recorded Body height Body mass index (BMI) Body weight Pain severity - 0-10 verbal numeric rating [Score] - Reported Body temperature Respiratory rate Oxygen saturation Heart rate Systolic And Diastolic Provider Name and Address Organization Details Last Updated DateTime 3 167.64 cm 19.4 kg/m2 55045.0 8 g 7 97.3 [degF] 18 /min 100 % 68 /min 123/81 mm[Hg] Marisel Chase [place] [facility] 3 08:10:06 Social History Question Answer Notes LastModified by TiVUS Details LastModified Time Tobacco Smoking Status Never Smoker JALEESA hoffman [place] [facility] 02/08/2023 08:09:53 Have You Recently Traveled Abroad? No [email or web address] Information not available 02/08/2023 Sex: Unknown Functional Status Question Answer Note LastModified by TiVUS Details LastModified Time Do you use any illicit or recreational drugs? No Information not available 02/08/2023 Do you or have you ever used any other forms of tobacco or nicotine? No [email or web address] Information not available 02/08/2023 What is your level of alcohol consumption? None [email or web address] Information not available 02/08/2023 Mental Status None recorded. Family History Relationship Description Onset Age of this Age Resolved Age Notes LastModified by Organization Details LastModified Time Father No current problems or disability [email or web address] Not available 02/08 08:09:41 Mother No current problems or disability [email or web address] Not available 02/08 08:09:41 Medical History No [...] ICD10 Code Diagnosis IMO Codes Diagnosis Note [id number] [address] [place] [address] 01/28/2021 15:13:50 01/28/2021 16:03:26 [id number] [address] [place] [address] 09/22/2018 08:02:35 09/22/2018 09:19:06 [id number] [address] [place] [address] 02/15/2019 08:04:43 02/15/2019 08:21:25 [id number] [address] [place] [address] 08/07/2019 08:08:23 08/07/2019 08:44:46 [id number] [address] [place] [address] 04/26/2017 09:28:49 04/26/2017 10:16:13 [id number] [address] [place] [address] 07/10/2018 07:55:53 07/10/2018 09:09:51 [id number] [address] [place] [address] 09/23/2019 18:34:26 09/23/2019 18:50:22 [id number] [address] [place] [address] 02/03/2017 13:05:31 02/03/2017 13:56:03 [id number] [address] [place] [address] 09/24/2018 07:51:47 09/24/2018 08:24:12 [id number] [address] [place] [address] 12/27/2018 12:24:45 12/27/2018 12:47:59 [id number] [address] [place] [address] 07/16/2020 15:29:23 07/16/2020 17:14:41 [id number] [address] [place] [address] 11/26/2018 08:06:47 11/26/2018 08:35:35 [id number] [address] [place] [address] 01/27/2021 08:25:50 01/27/2021 09:21:26 [id number] JOHNATHAN PATRICK [address] [place] [address] 02/08/2023 08:03:39 02/08/2023 08:34:37 Hordeolum externum of lower eyelid of left eye [id number] 27883 H00.015 Differenti al - was a FB that has scratched the left lower lateral eyelid. Does not appear to be vesicular. No involvment in surroundin g skin or cornea. Would advise Eye doctor in 5 days if not relief. Elevated blood-pressure reading without diagnosis of hypertension [id number] R03.0 You blood pressure was elevated during [...] to discuss the results of your journal. [id number] Vashti Isabel MD [address] [address] 03/05/2023 08:03:48 03/05/2023 08:40:59 Acute atopic conjunctivitis of left eye [id number] 15298 H10.12 Health Concerns Section Related Observation LastModified by Organization Detai ls LastModified Time None Recorded Concern Status LastModified by Organization Details LastModified Time None Recorded Advance Directives Directive None Recorded Payers Insurance Date Sequence Insurance Name Policy Number Policy Monk Covered Member ID Monk Member ID Guarantor Name 03/05/2023 1 [facility] (MEDICAID REPLACEMENT - HMO) MICKIE Malagon [id number] Tammi Malagon Notes Date Note Type Note Provider Name and Address Organization Details Recorded Time 02/08/2023 text/html Eye problemsRepo rted by PatientHPIFor eye symptoms, patient reportsredness,foreign body sensation,discharge,tomasz kathie, anditchingbut reportsno sensitivity to light. For source of patient information, patient reportsinformation obtained from patientandpatient arrived at urgent care ambulatory. For location, patient reportsleft. For severity, patient reportsmild. For onset/timing, patient [id number]. For modifying factors, patient reportsotc medication.The patient [...] keratitis or shingles. JOHNATHAN PATRICK [address], [address], [place] - [facility] 02/08/2023 08:31:52 03/05/2023 text/html Eye problemsRepo rted by PatientHPIFor eye symptoms, patient reportsredness,foreign body sensation,watery, anditching(irritated. minor light sensitivity. occasional tearing. no eye trauma or contact lens use.). For source of patient information, patient reportsinformation obtained from patientandpatient arrived at urgent care ambulatory. For location, patient reportsleft. For severity, patient reportsmild. For onset/timing, patient [id number]. For modifying factors, patient reportsnothing gives reliefandnew [...] symptoms. Vashti Isabel MD [address] [place], [address], [employer] [facility] 03/05/2023 08:48:00 OBGyn Episode No OBEpisode recorded.
== END 2025-10-25 07:51 | disposition home or self-care (01) ==
PROVIDERS: PCP Internal Medicine; Visit Provider Nurse Practitioner Family
DX: T14.8XXA Other injury of unspecified body region, initial encounter (principal)

== ENCOUNTER → 2025-10-25 07:13 | Outpatient (BNVA) | payer OTHER, SELFPAY | PROVIDERS: PCP Internal Medicine; Visit Provider Nurse Practitioner Family | DX: S81.832D Puncture wound without foreign body, left lower leg, subsequent encounter (principal) | CPT/HCPCS: 99212 ==

== ENCOUNTER 2025-11-15 07:52 | Outpatient (AMB) | payer OTHER, SELFPAY ==
--- NOTE | 2025-11-15 07:53 | AM.OFFWIN_ITS ---
Intake Vital Signs 11/15/25 07:54 Height 5 ft 6 in Weight 145 lb BMI 23.4 BP 124/78 Blood Pressure Location Rt brachial Position Sitting Pulse 85 Pulse Source Pulse Oximeter Pulse Oximetry (%) 96 Oxygen Delivery Method Room Air Intake Visit Reasons: EP rt eye sore blurred vision wrong eye drops Intake Note: Patient presents c/o right eye irritated related to using the wrong eye drops yesterday. Patient Tobacco Use Status: Never used Tobacco Allergies No Known Allergies (No Known Allergies*) Allergy (Verified 11/15/25 07:57) HPI HPI Comments History of Present Illness Details 65-year-old female presents to the walk- in clinic with complaints of right eye irritation and significant itching. Patient has a known history of dry eyes and regularly uses OTC Visine eye drops. She reports that yesterday, while reaching for her eye drops from the medicine cabinet, she accidentally picked up her cat?s eye medication. She realized the mistake immediately, did not intentionally instill any drops, and put the bottle down right away. She then irrigated her right eye immediately after realizing the error. Since that time, she reports continued irritation, itching, light sensitivity, and blurry vision. She notes a history of early cataracts, which she believes may contribute to baseline blurry vision. She denies eye pain, headache, dizziness, nausea, or vomiting. No report of vision loss, halos, or discharge. [facility] Medical History (Updated 11/15/25 @ 08:07 by Bita Juan NP) Irritation of right eye Puncture wound Headache Encounter for general adult medical examination with abnormal findings URI (upper respiratory infection) Proteinuria Hematuria Left flank pain Excessive cerumen in right ear canal Infection of right ear Bleeding per rectum Blurring of vision Rash Postmenopausal bleeding Encounter to discuss test results COVID-19 virus infection Nasal congestion Myalgia Abdominal cramping Underweight due to inadequate caloric intake Gastric inflammation Pain in right wrist Dysphagia Nausea Dysphagia Altered bowel habits Acid reflux Hard stool Abdominal pain Postmenopausal vaginal bleeding Well woman exam with routine gynecological exam Ingrown toenail of left foot Toe infection Paronychia of great toe of left foot Paronychia of great toe of right foot Paronychia due to ingrown nail Paronychia History of COVID-19 Endocervical polyp GERD (gastroesophageal reflux disease) Arthritis of right wrist Scoliosis Hx of migraines History of iron deficiency anemia Surgical History Hx of esophagogastroduodenoscopy Hx of colonoscopy History of tonsillectomy Family History Father Diabetes mellitus Stomach cancer Mother HTN (hypertension) Afib Heart failure Maternal Grandfather CVD (cardiovascular disease) Maternal Grandmother Leukemia Paternal Grandfather Cancer Paternal Grandmother No problems noted. Brother No problems noted. Brother No problems noted. Brother No problems noted. Brother No problems noted. Brother No problems noted. Sister No problems noted. Sister No problems noted. Sister No problems noted. Social History Household Members: None Housing: Condominium Are you a primary skin care consultant to a significant other at home: No Do you presently have visiting nurse or other home services: No Alcohol intake: former Patient Tobacco Use Status: Never used Tobacco e-Cigarette/Vaping Use: Never Used Current occupational status: unemployed Sexual orientation: Straight/Heterosexual Gender identity: Female Cognitive needs: No Hearing needs: No Vision needs: No Review of Systems Const All systems reviewed & are unremarkable except as noted in HPI and below Physical Exam Vital Signs: Last Vital Signs Pulse 85 11/15/25 07:54 BP 124/78 11/15/25 07:54 Pulse Ox 96 11/15/25 07:54 Oxygen Delivery Method Room Air 11/15/25 07:54 BMI result Body Mass Index 23.4 Const General: no acute distress Nutritional Appearance: well nourished Orientation/consciousness: patient oriented x3 HEENT Head: Yes normocephalic Eyes Eyelids: Yes eyelids normal Conjunctivae: conjunctivae normal Pupils: Equal, round and reactive pupils present EOM: EOMs intact bilaterally Direct Ophthalmoscopy: normal light reflex Skin General skin exam: fluctuance Neuro General: patient oriented x3, gait normal and moves all extremities Cranial nerves: Yes Equal, round and reactive pupils present Psych Speech and movement: Normal speech and movement present Assessment & Plan Assessment & Plan (1) Irritation of right eye: Code(s): H57.89 - Other specified disorders of eye and adnexa Plan: Right eye irritation/pruritus. Possible chemical exposure to the right eye ? Accidental contact with veterinary ophthalmic medication, exposure unlikely as patient reports no drops were instilled. Reassured patient regarding low likelihood of toxicity given immediate recognition and irrigation. Recommended preservative-free artificial tears (e.g., Refresh, Systane) every 2?4 hours as needed Apply cool compresses to right eye for symptomatic relief Avoid rubbing the eyes Educated patient on red flag symptoms: worsening pain, increasing redness, vision changes, discharge, severe photophobia ? advised to seek urgent care or ophthalmology evaluation if these occur. Coding Level of Care Code Est Pt Level 4 (95776) Diagnoses Irritation of right eye H57.89 Time Spent (min) 20
[2025-11-15 07:54] VITALS: BP 124/78; PULSE 85; O2SAT 96; BMI 23.4
--- OUTSIDE RECORDS SUMMARY | 2025-11-15 07:57 | XMS_ITS | Data Portability ---
Author Organization [facility]ATHAN [facility] [address] Address [address] [place] [address] Care Team Providers Care Electronic Commerce Specialist Name Role Phone LENA KU Primary Care Provider Assessment No assessment recorded. Plan of Treatment Reminders Order Date Submit Date Provider Last Modified By Organization Details Last Modified Time Details Appointments None recorded. Lab None recorded. Referral None recorded. Procedures None recorded. Surgeries None recorded. Imaging None recorded. Medication Orders Pataday Twice Daily Relief 0.1 % eye drops 2022 023 [facility] #[id number], [address] [place], [address], 3 08:36:30 ciprofloxac in 0.3 % eye drops 2022 023 [facility] #[id number], [address] [place], [address], 3 08:08:23 Patient TargetsNo targets recorded. Patient Instructions Encounter Date Encounter Id Patient Instructions Last Modified By Organization Details Last Modified Time 02/08/2023 [id number] Based on your presentation and exam - [...] around your face. Thank you for using [facility] today, please feel free to contact us with any questions or concerns. [email or web address] Not available 02/08/2023 08:27:16 03/05/2023 [id number] Allergic Conjunctivitis: Care Instructions [email or web address] Not available 03/05/2023 08:39:28 It is possible [...] follow-up with Dr. Hilliard your eye doctor. [email or web address] Not available 03/05/2023 08:39:28 Reason for Referral None Reported. Problems No Known Problems Procedures Surgical History Date Name Laterality Status Provider Name and Address Organization Details Recorded Time tonsillectomy completed JALEESA MANN - [employer] 02/08/2023 08:09:40 Imaging Results None recorded. Procedure [...] Updated DateTime 3 167.64 cm 19.4 kg/m2 23507.0 8 g 7 18 /min 99 % 78 /min 98.3 [degF] 133/90 mm[Hg] JALEESA GOVEA [place] [facility] 08:10:52 Date Recorded Body height Body mass index (BMI) Body weight Pain severity - 0-10 verbal numeric rating [Score] - Reported Body temperature Respiratory rate Oxygen saturation Heart rate Systolic And Diastolic Provider Name and Address Organization Details Last Updated DateTime 3 167.64 cm 19.4 kg/m2 64943.0 8 g 7 97.3 [degF] 18 /min 100 % 68 /min 123/81 mm[Hg] Marisel Chase [place] [facility] 3 08:10:06 Social History Question Answer Notes LastModified by Karisma Kidz Details LastModified Time Tobacco Smoking Status Never Smoker JALEESA hoffman [place] [facility] 02/08/2023 08:09:53 Have You Recently Traveled Abroad? No [email or web address] Information not available 02/08/2023 Sex: Unknown Functional Status Question Answer Note LastModified by Karisma Kidz Details LastModified Time Do you use any illicit or recreational drugs? No Information not available 02/08/2023 Do you or have you ever used any other forms of tobacco or nicotine? No [email or web address] Information not available 02/08/2023 What is your level of alcohol consumption? None [email or web address] Information not available 02/08/2023 Mental Status None recorded. Family History Relationship Description Onset Age of this Age Resolved Age Notes LastModified by Organization Details LastModified Time Father No current problems or disability [email or web address] Not available 02/08 08:09:41 Mother No current problems or disability Not available 02/08 08:09:41 Medical History No [...] ICD10 Code Diagnosis IMO Codes Diagnosis Note [id number] [address] [place] [address] 01/28/2021 15:13:50 01/28/2021 16:03:26 [id number] [address] [place] [address] 09/22/2018 08:02:35 09/22/2018 09:19:06 [id number] [address] [place] [address] 02/15/2019 08:04:43 02/15/2019 08:21:25 [id number] [address] [place] [address] 08/07/2019 08:08:23 08/07/2019 08:44:46 [id number] [address] [place] [address] 04/26/2017 09:28:49 04/26/2017 10:16:13 [id number] [address] [place] [address] 07/10/2018 07:55:53 07/10/2018 09:09:51 [id number] [address] [place] [address] 09/23/2019 18:34:26 09/23/2019 18:50:22 [id number] [address] [place] [address] 02/03/2017 13:05:31 02/03/2017 13:56:03 [id number] [address] [place] [address] 09/24/2018 07:51:47 09/24/2018 08:24:12 [id number] [address] [place] [address] 12/27/2018 12:24:45 12/27/2018 12:47:59 [id number] [address] [place] [address] 07/16/2020 15:29:23 07/16/2020 17:14:41 [id number] [address] [place] [address] 11/26/2018 08:06:47 11/26/2018 08:35:35 [id number] [address] [place] [address] 01/27/2021 08:25:50 01/27/2021 09:21:26 [id number] JOHNATHAN PATRICK [address] [place] [address] 02/08/2023 08:03:39 02/08/2023 08:34:37 Hordeolum externum of lower eyelid of left eye [id number] 83289 H00.015 Differenti al - was a FB that has scratched the left lower lateral eyelid. Does not appear to be vesicular. No involvment in surroundin g skin or cornea. Would advise Eye doctor in 5 days if not relief. Elevated blood-pressure reading without diagnosis of hypertension [id number] R03.0 You blood pressure was elevated during [...] to discuss the results of your journal. [id number] Vashti Isabel [place] [address] [address] 03/05/2023 08:03:48 03/05/2023 08:40:59 Acute atopic conjunctivitis of left eye [id number] 51779 H10.12 Health Concerns Section Related Observation LastModified by Organization Detai ls LastModified Time None Recorded Concern Status LastModified by Organization Details LastModified Time None Recorded Advance Directives Directive None Recorded Payers Insurance Date Sequence Insurance Name Policy Number Policy Monk Covered Member ID Monk Member ID Guarantor Name 03/05/2023 1 [facility] (MEDICAID REPLACEMENT - HMO) MICKIE Malagon [id number] Tammi Malagon Notes Date Note Type Note Provider Name and Address Organization Details Recorded Time 02/08/2023 text/html Eye problemsRepo rted by PatientHPIFor eye symptoms, patient reportsredness,foreign body sensation,discharge,tomasz kathie, anditchingbut reportsno sensitivity to light. For source of patient information, patient reportsinformation obtained from patientandpatient arrived at urgent care ambulatory. For location, patient reportsleft. For severity, patient reportsmild. For onset/timing, patient [id number]. For modifying factors, patient reportsotc medication.The patient [...] keratitis or shingles. JOHNATHAN PATRICK [address], [address], [place] - [facility] 02/08/2023 08:31:52 03/05/2023 text/html Eye problemsRepo rted by PatientHPIFor eye symptoms, patient reportsredness,foreign body sensation,watery, anditching(irritated. minor light sensitivity. occasional tearing. no eye trauma or contact lens use.). For source of patient information, patient reportsinformation obtained from patientandpatient arrived at urgent care ambulatory. For location, patient reportsleft. For severity, patient reportsmild. For onset/timing, patient [id number]. For modifying factors, patient reportsnothing gives reliefandnew [...] symptoms. Vashti Isabel MD [address] [place], [address], [facility] 03/05/2023 08:48:00 OBGyn Episode No OBEpisode recorded.
== END 2025-11-15 08:25 | disposition home or self-care (01) ==
PROVIDERS: PCP Internal Medicine; Visit Provider Nurse Practitioner Family
DX: H57.89 Other specified disorders of eye and adnexa (principal)

== ENCOUNTER → 2025-11-15 07:52 | Outpatient (BNVA) | payer OTHER, SELFPAY | PROVIDERS: PCP Internal Medicine; Visit Provider Nurse Practitioner Family | DX: H57.89 Other specified disorders of eye and adnexa (principal) | CPT/HCPCS: 99212 ==